=== PATIENT | female | born 1990 | race Caucasian/White ===

== ENCOUNTER 2017-09-25 12:55 | Inpatient (IN) | payer OTHER, SELFPAY ==
[2017-09-25 12:40] VITALS: BMI 35.9
[2017-09-25 12:53] LABS: ROM Internal Control Test YES-OK TO RESULT pt. (Internal QC); ROM Patient Test POSITIVE (Negative)
[2017-09-25] MEDS: Lactated Ringers 1,000 ML 50 ML IV ×3 (13:15→22:37)
[2017-09-25 13:34] LABS: Hematocrit 38.4 % (37-47); Hemoglobin 13.4 g/dl (12.0-15.0); Mean Corp Hgb Conc 34.9 g/gl (32-36); Mean Corpuscular Hgb 31.2 pg (27.0-32.0); Mean Corpuscular Volume 89.3 fL (81-99); Mean Platelet Vol. 11.4 fl (6.2-12.0); Platelet Count 172 K/mm3 (150-450); RBC Distribution Width CV 14.4 % (11.6-14.6); RBC Distribution Width SD 45.7 fl (35.1-43.9); White Blood Count 9.7 K/mm3 (4.4-11.0)
[2017-09-25 13:35] LABS: Scan Indicated on CBC? Y/N NO
[2017-09-25] MEDS: Oxytocin 30 units/NS 500 ml 30 UNITS/500 ML IV.SOLN IV (18:45)
--- NOTE | 2017-09-25 19:15 | PCM.HP.OB ---
History Date of Admission: 09/25/17 Final DONYA: 10/03/17 Final DONYA Source: LMP Gestational age: 38 Weeks and 6 Days History of this : 27 YOF presents w/ c/o SROM, clear approx 9 am. No regular ctxs. Good FM. No VB. Allergies morphine Adverse Reaction (Verified 09/25/17 12:44) Itching Current Medications Acetaminophen (Tylenol) 325 - 650 mg PO Q4H PRN PRN PRN Reason: PAIN OR FEVER >100.4F Al Hydroxide/Mg Hydroxide (Mylanta Ii) 15 - 30 ml PO Q4H PRN PRN PRN Reason: INDIGESTION Citric Acid/Sodium Citrate (Bicitra) 30 ml PO UD PRN Lactated Ringer's () 1,000 mls @ 50 mls/hr IV .Q20H [facility] Last Admin: 09/25/17 18:35 Dose: 50 mls/hr Oxytocin/Sodium Chloride () 30 units in 500 mls @ 1 mls/hr IV .Q500H [facility]FIE Nalbuphine HCl (Nubain) 5 - 10 mg IV Q3H PRN PRN PRN Reason: PAIN (4-10/10) Ondansetron HCl (Zofran) 4 mg IV Q8H PRN PRN PRN Reason: NAUSEA Promethazine HCl (Phenergan) 6.25 - 12.5 mg IV Q4H PRN PRN; Protocol PRN Reason: IF NAUSEA PERSISTS Sodium Chloride () 5 - 15 ml IV UD [facility] Last Admin: 09/25/17 18:04 Dose: Not Given Smoking Status: Never smoker Alcohol: None Drug Use: none Number of Fetus(es): 1 Review of Systems Constitutional: Denies: Chills, Fever Eyes: Denies: Blurred vision, Double vision Cardiovascular: Denies: Chest Pain Respiratory: Denies: Cough, Shortness of Breath Skin: Denies: Rash Physical Exam General: Alert, Cooperative, No apparent distress Cardiovascular: Regular rate Lungs: Normal air movement Abdomen: Soft, Non Tender, Non-Distended, Gravid, Appropriate for Gestational Age Extremities:: Other - edema- trace Estimated gestational size: Appropriate for gestational size Presentation: Cephalic Cervix Dilation (cm): 2.5 - mid position and medium consistency Station: -2 Effacement (%): 60 Assessment/Plan FHTs category 1 A/p 27 YOF @ 38 weeks w/ SROM. D/w her r/b/a/p to induction of labor vs repeat c/s. D/w her option of c/s at anytime. D/w her pitocin use and IUPC to monitor uterine activity. Epidural when in labor or w/ pitocin initiation.
--- NOTE | 2017-09-25 19:21 | HP.PCM_ITS ---
History Date of Admission: 09/25/17 Final DONYA: 10/03/17 Final DONYA Source: LMP Gestational age: 38 Weeks and 6 Days History of this : 27 YOF presents w/ c/o SROM, clear approx 9 am. No regular ctxs. Good FM. No VB. Allergies morphine Adverse Reaction (Verified 09/25/17 12:44) Itching Current Medications Acetaminophen (Tylenol) 325 - 650 mg PO Q4H PRN PRN PRN Reason: PAIN OR FEVER >100.4F Al Hydroxide/Mg Hydroxide (Mylanta Ii) 15 - 30 ml PO Q4H PRN PRN PRN Reason: INDIGESTION Citric Acid/Sodium Citrate (Bicitra) 30 ml PO UD PRN Lactated Ringer's () 1,000 mls @ 50 mls/hr IV .Q20H [facility] Last Admin: 09/25/17 18:35 Dose: 50 mls/hr Oxytocin/Sodium Chloride () 30 units in 500 mls @ 1 mls/hr IV .Q500H [facility] Nalbuphine HCl (Nubain) 5 - 10 mg IV Q3H PRN PRN PRN Reason: PAIN (4-10/10) Ondansetron HCl (Zofran) 4 mg IV Q8H PRN PRN PRN Reason: NAUSEA Promethazine HCl (Phenergan) 6.25 - 12.5 mg IV Q4H PRN PRN; Protocol PRN Reason: IF NAUSEA PERSISTS Sodium Chloride () 5 - 15 ml IV UD [facility] Last Admin: 09/25/17 18:04 Dose: Not Given Smoking Status: Never smoker Alcohol: None Drug Use: none Number of Fetus(es): 1 Review of Systems Constitutional: Denies: Chills, Fever Eyes: Denies: Blurred vision, Double vision Cardiovascular: Denies: Chest Pain Respiratory: Denies: Cough, Shortness of Breath Skin: Denies: Rash Physical Exam General: Alert, Cooperative, No apparent distress Cardiovascular: Regular rate Lungs: Normal air movement Abdomen: Soft, Non Tender, Non-Distended, Gravid, Appropriate for Gestational Age Extremities:: Other - edema- trace Estimated gestational size: Appropriate for gestational size Presentation: Cephalic Cervix Dilation (cm): 2.5 - mid position and medium consistency Station: -2 Effacement (%): 60 Assessment/Plan FHTs category 1 A/p 27 YOF @ 38 weeks w/ SROM. D/w her r/b/a/p to induction of labor vs repeat c/s. D/w her option of c/s at anytime. D/w her pitocin use and IUPC to monitor uterine activity. Epidural when in labor or w/ pitocin initiation.
[2017-09-25] MEDS: fentaNYL-bupivacaine (epidural) 100 ML BAG EPIDURAL (21:24)
[2017-09-25] MEDS: 0.9% Saline Lock 10 ML Syringe IV (22:36)
[2017-09-26] MEDS: Lactated Ringers 1,000 ML 50 ML IV (01:26)
[2017-09-26] MEDS: Oxytocin 30 units/NS 500 ml 30 UNITS/500 ML IV.SOLN 334 UNITS IV (05:53)
--- NOTE | 2017-09-26 06:29 | PCM.OB.VAG ---
Vaginal Delivery Maternal Presentation: Spontaneous Rupture of Membranes, Medically Indicated Induction Method of Induction: Pitocin Medical Reason for Induction: Premature Rupture of Membranes Amniotic Membrane Rupture Type: Spontaneous at home Amniotic Fluid Description: Clear Final DONYA: 10/03/17 Final DONYA Source: US <20 weeks Gestational age: 39 Weeks and 0 Days Date of Procedure: 09/26/17 Pre-Operative Diagnosis: labor Post-Operative Diagnosis: labor Surgery/ Procedure Performed: Spontaneous Vaginal Delivery Anesthesiologist: Sindy Alegria Type of Anesthesia: Epidural Description of Procedure: A vigorous male infant was delivered YADIEL over a second-degree perineal laceration. The remainder the infant was delivered with maternal pushing and gentle traction only in less than 15 seconds. The Pitocin infusion was initiated for active management of the third stage. The cord was clamped and cut after 1 minute. The infant was attended to by the waiting nursing staff. The placenta was delivered spontaneously and intact. The cervix and vagina were intact. The second-degree perineal laceration was repaired with 3-0 Vicryl suture in a running standard fashion. An exploration of the uterus was done and the uterine scar was intact. Sponge and needle counts were correct. A vaginal sweep was completed by me. Presentation: YADIEL Placental Delivery Description: Spontaneous Placenta Disposition: [facility] Cord Vessel Description: 3 Vessels Cord Entanglement: None Drain: [place] to straight drain - removed immediately before delivery Estimated Blood Loss: 500 Infant A gender: Male (1 minute): 8 (5 minute): 9 Episiotomy Description: None Laceration: 2nd degree Medications given after delivery: IV Pitocin Complications: None
[2017-09-26] MEDS: Oxytocin 30 units/NS 500 ml 30 UNITS/500 ML IV.SOLN 167 UNITS IV (06:30)
[2017-09-26 10:00] VITALS: BP 130/58; PULSE 130; RESP 18; TEMP 36.4; O2SAT 97
[2017-09-26] MEDS: Naproxen 250 MG Tablet PO ×2 (10:24→19:49)
[2017-09-26 11:50] VITALS: BP 119/72; PULSE 119; RESP 18; TEMP 36.2; O2SAT 98
[2017-09-26] MEDS: Acetaminophen 500 MG Tablet 1000 MG PO (13:04)
[2017-09-26 14:00] VITALS: BP 122/73; PULSE 96; RESP 18; TEMP 36.5; O2SAT 98
[2017-09-26 20:52] VITALS: BP 128/66; BP 139/70; PULSE 97; RESP 18; TEMP 36.5; O2SAT 99
[2017-09-27 00:09] VITALS: BP 114/58; PULSE 89; RESP 16; TEMP 36.2; O2SAT 98
[2017-09-27] MEDS: Acetaminophen 500 MG Tablet 1000 MG PO ×2 (00:37→08:19)
[2017-09-27 03:10] VITALS: BP 137/74; PULSE 108; RESP 16; TEMP 36.3; O2SAT 98
[2017-09-27] MEDS: Naproxen 250 MG Tablet PO (05:44)
[2017-09-27] MEDS: Senna/Docusate Sodium 1 Tablet PO (05:45)
[2017-09-27 06:02] LABS: Hematocrit 27.8 % (37-47); Hemoglobin 9.3 g/dl (12.0-15.0); Mean Corp Hgb Conc 33.5 g/gl (32-36); Mean Corpuscular Hgb 30.3 pg (27.0-32.0); Mean Corpuscular Volume 90.6 fL (81-99); Mean Platelet Vol. 10.7 fl (6.2-12.0); Platelet Count 119 K/mm3 (150-450); RBC Distribution Width CV 14.8 % (11.6-14.6); RBC Distribution Width SD 48.1 fl (35.1-43.9); Red Blood Count 3.07 M/mm3 (4.2-5.4); White Blood Count 13.2 K/mm3 (4.4-11.0)
[2017-09-27 06:04] LABS: Scan Indicated on CBC? Y/N NO
--- NOTE | 2017-09-27 08:05 | PCM.PN.OB ---
Subjective: pt seen at bedside, doing well. pt reports good pain control. lochia mild. Pt denies CP, SOB, dizziness. breast feeding. - Physical Exam General: Alert, Oriented x3 Abdomen: Soft, Non Tender, Non-Distended, - - fundus firm Extremities: No Calf Tenderness Vital Signs Temp Pulse Resp BP Pulse Ox 97.4 F L 108 H 16 137/74 H 98 09/27/17 03:10 09/27/17 03:10 09/27/17 03:10 09/27/17 03:10 09/27/17 03:10 Oxygen Delivery Method Room Air Weight: 92.1 kg Body Mass Index (BMI) 35.9 Intake and Output for Last 24 Hours 09/25/17 09/26/17 09/27/17 23:59 23:59 23:59 Intake Total 4422 / 4422 Output Total 1200 / 1200 Balance 3222 / 3222 Laboratory Tests Past 24 Hrs 09/27/17 05:40 WBC 13.2 H RBC 3.07 L Hgb 9.3 L Hct 27.8 L MCV 90.6 MCH 30.3 MCHC 33.5 RDW 14.8 H RDW Differential 48.1 H Plt Count 119 L MPV 10.7 Medical Necessity - Tobacco Use Smoking Status: Never smoker Assessment/Plan PPD#1, doing well. routine care dc home today per PO IRON
--- NOTE | 2017-09-27 08:13 | DCINST_ITS ---
Discharge Diet: No Restrictions Discharge Activity: Return to Normal Activity, May not drive while taking narcotic pain medications., May Shower May resume sexual activity in: 4-6 weeks Additional Activity Instructions:: Nothing in the vagina for 4-6 weeks. You may return to work/school in 6 weeks. Call your doctor if your incision/area has: Continuous Slow Oozing, Sudden Increased Bleeding, Increased Pain/ Swelling, Increased Redness, Foul Smelling Discharge Additional Instructions: If you experience any of the following, contact your healthcare provider. * Bleeding that soaks a pad every hour for 2 hours * Fever 100.4 or higher * Unrelieved incision or abdominal pain * Swelling, redness, discharge or bleeding from your incision or episiotomy site * Your incision begins to separate * Problems urinating (including inability to urinate or burning while urinating) . * Visual changes * Severe headache * Flu-like symptoms * Pain or redness in one of both of your breasts * Pain, warmth, tenderness or swelling in your legs, especially the calf area * Frequent nausea and vomiting * Symptoms of depression or anxiety If you experience any of the following, call 911 or go to the nearest Emergency Room. * Chest pain * Problems breathing * Seizure activity * Partial or complete paralysis of a body part, slurred speech, weakness or drooping of the face, or a sudden inability to walk or hold your balance Allergies/Adverse Reactions: Allergies morphine Adverse Reaction (Verified 09/25/17 12:44) Itching Medications to take at Discharge Montelukast [Singulair] 10 mg PO DAILY 09/25/17 Vits [Prenatabs FA ] 1 tablet PO DAILY 09/25/17 Valacyclovir HCl [Valtrex] 500 mg PO DAILY 09/25/17 Ferrous Sulfate 325 mg PO BIDCM #60 tab 09/27/17 Montelukast [Singulair] 10 mg PO 1999 #30 tablet 09/27/17 Naproxen [Naprosyn] 250 - 500 mg PO Q8H PRN PRN #30 tab 09/27/17 The following prescriptions were given: Naproxen [Naprosyn] 250 - 500 mg PO Q8H PRN PRN #30 tab PRN Reason: MILD PAIN (-08/24) Montelukast [Singulair] 10 mg PO 1999 #30 tablet Ferrous Sulfate 325 mg PO BIDCM #60 tab When: Call to make an appointment with your doctor in 6 weeks. If you had elevated Blood Pressure or 4th degree laceration you will need to be seen in 2 weeks. Primary Care Physician: Care Physician,No Primary [Primary Care Provider] -
[2017-09-27 08:20] VITALS: BP 117/71; PULSE 90; RESP 12; TEMP 36.6
[2017-09-27 14:00] VITALS: BP 130/73; PULSE 94; TEMP 36.4
== END 2017-09-27 14:30 | disposition home or self-care (01) | DRG 775 ==
LOC: WPOUT 12:56 → WP 12:56
PROVIDERS: Advanced Practice Midwife; Admitting Provider Obstetrics & Gynecology; Visit Provider Obstetrics & Gynecology
DX: O42.92 Full-term premature rupture of membranes, unspecified as to length of time between rupture and onset of labor (principal); Z3A.39 39 weeks gestation of pregnancy; Z37.0 Single live birth; O70.1 Second degree perineal laceration during delivery; O34.219 Maternal care for unspecified type scar from previous cesarean delivery; N85.8 Other specified noninflammatory disorders of uterus
CPT/HCPCS: 59025; 59050; 84112; 85027; 86850; 86900; 99218; J7120; A4216; G0378

== ENCOUNTER → 2018-07-10 13:39 | Outpatient (CLI) | payer OTHER, SELFPAY ==
[2018-07-10 14:15] LABS: Internal QC Validated? YES +Cl - CLEAR BKGD; Pregnancy, Urine Negative Negative
== END ==
PROVIDERS: Family Provider Student in an Organized Health Care Education/Training Program; PCP Student in an Organized Health Care Education/Training Program; Referring Provider Dermatology Pediatric Dermatology; Visit Provider Dermatology Pediatric Dermatology
DX: L70.0 Acne vulgaris (principal); Z79.899 Other long term (current) drug therapy
CPT/HCPCS: 81025

== ENCOUNTER → 2018-08-14 14:42 | Outpatient (CLI) | payer OTHER, SELFPAY ==
[2018-08-14 15:58] LABS: Internal QC Validated? YES +Cl - CLEAR BKGD; Pregnancy, Urine Negative Negative
== END ==
PROVIDERS: Family Provider Student in an Organized Health Care Education/Training Program; PCP Student in an Organized Health Care Education/Training Program; Referring Provider Dermatology Pediatric Dermatology; Visit Provider Dermatology Pediatric Dermatology
DX: L70.0 Acne vulgaris (principal); Z79.899 Other long term (current) drug therapy
CPT/HCPCS: 81025

== ENCOUNTER → 2018-09-18 13:37 | Outpatient (CLI) | payer OTHER, SELFPAY ==
[2018-09-18 16:01] LABS: Internal QC Validated? YES +Cl - CLEAR BKGD; Pregnancy, Urine Negative Negative
== END ==
PROVIDERS: Family Provider Student in an Organized Health Care Education/Training Program; PCP Student in an Organized Health Care Education/Training Program
DX: L70.0 Acne vulgaris (principal)
CPT/HCPCS: 81025

== ENCOUNTER → 2018-10-22 | Outpatient (CLI) | payer OTHER, SELFPAY ==
[2018-10-22 16:03] LABS: Internal QC Validated? YES +Cl - CLEAR BKGD; Pregnancy, Urine Negative Negative
== END | disposition home or self-care (01) ==
LOC: MTLAB 14:04
PROVIDERS: Family Provider Student in an Organized Health Care Education/Training Program; PCP Student in an Organized Health Care Education/Training Program; Referring Provider Physician Assistant Medical; Visit Provider Physician Assistant Medical
DX: L70.0 Acne vulgaris (principal); Z79.899 Other long term (current) drug therapy
CPT/HCPCS: 81025

== ENCOUNTER 2025-05-26 17:06 | Outpatient (CLI) | payer SELFPAY ==
[2025-05-26] VITALS (39 sets, daily range): BP systolic 111–139; BP diastolic 62–77; PULSE 72–102; RESP 14–16; TEMP 36.5–37.3; O2SAT 92–99; BMI 32.4
--- OUTSIDE RECORDS SUMMARY | 2025-05-26 17:15 | XMS RPT_ITS | CCD ---
Author Organization [facility] ion Partnership [facility] Care Team Providers Care Apartment Maintenance Technician Name Role Phone Uvaldo Milton Primary Care Provider No, Referral Unavailable Unavailable Uvaldo Milton DO Primary Care Provider IvyAna wilsonot M Unavailable Navarro Murray MD Unavailable Nicole Barcenas MD Unavailable Uvaldo Milton DO Primary Care Provider Ivy, Cain M Unavailable Navarro Murray MD Unavailable Nicole Barcenas MD Unavailable No, Referral Unavailable Unavailable Uvaldo Milton DO Primary Care Provider Nichols, Cain Jaleel Unavailable Navarro Murray MD Unavailable Nicole Barcenas MD Unavailable Unavailable Primary Care Provider Unavailabl e No, Referral Unavailable Unavailable IvyAna wilsonot Jaleel Unavailable [phone] Navarro Murray MD Unavailable Nicole Barcenas MD Unavailable UVALDO MILTON Primary Care Unavailable PROVIDER, UNKNOWN Referring Unavailable Uvaldo Milton DO Primary Care Provider Cain Haynes MD Unavailable Tony [email or web address].CON, Edna Doshi Unavailable [facility] PROM BURN OFF OPERATOR.CLEANER FURNITURE, Maddy Unavailable Diego PROM BURN OFF OPERATOR.CLEANER FURNITURE, Frances Hussein Unavailable Joe MCDUFFIE, Kelsi Unavailable Unavailable MILTON, UVALDO L Primary Care Unavailable NEYTIFFANIE ISABEL, CHERIE Attending Unavail able MILTON, UVALDO L Attending Unavailable MILTON, UVALDO L Primary Care Unavailable PLOTTS, JIHAN Referring Unavailable MILTON, UVALDO L Primary Care Unavailable NEYHART ISABEL, CHERIE Attending Unavail able PLOTTS, JIHAN Referring Unavailable MILTON, UVALDO L Primary Care Unavailable NEYHART ISABEL, CHERIE Attending Unavail able MILTON, UVALDO L Primary Care Unavailable MILTON, UVALDO L Primary Care Unavailable OTROSALEE DAVEY Referring Unavailable PLOTTS, JIHAN Referring Unavailable MILTON, UVALDO L Primary Care Unavailable PLOTTS, JIHAN Referring Unavailable MILTON, UVALDO L Primary Care Unavailable KODI GARCIA Attending Unavailable PLOTTS, JIHAN Referring Unavailable MILTON, UVALDO L Primary Care Unavailable MILTON, UVALDO L Primary Care Unavailable PLOTTS, JIHAN Attending Unavailable MILTON, UVALDO L Primary Care Unavailable Allergies Allergy Classification Reported Allergen(s) Allergy Type Date of Onset Reaction(s) Facility (20 sources) Morphine; Translations: [MORPHINE] Drug Allergy [address] [facility] (9 sources) seasonl allergies [Other] Propensity to adverse reactions [address] [facility] (1 source) OTHER; Translations: [OTHER] Propensity to adverse reactions (disorder) [address] [facility] Other [facility] (11 sources) Penicillins; Translations: [PENICILLINS] Drug Allergy [address] [facility] Medications Current Medications Medication Drug Class(es) Dates Sig (Normalized) Sig (Original) [id number] 200 actuat albuterol 0.09 mg/actuat metered dose inhaler (20 sources) beta2-Adrenergic Agonist Start: 03-04-2020 take 2 puff(s) by inhalation every four hours as needed albuterol HFA (PROAIR HFA) 90 mcg/actuation inhaler Indications: Seasonal allergies , Sinusitis Inhale 2 Puffs as instructed every 4 hours as needed. 36 g 3 03/04/2020 Active Comment on above: Inhale 2 Puffs as in structed every 4 hours as needed. perflutren lipid microspheres 1.3 mL in NaCl (PF) 0.9% 10 mL injection (DEFINITY) (7 sources) Start: 08-02-2022 End: 11-01-2023 perflutren lipid microspheres 1.3 mL in NaCl (PF) 0.9% 10 mL injection (DEFINITY) Start: 10-11-2020 End: 2022 perflutren lipid microsphere s 1.3 mL in NaCl (PF) 0.9% 10 mL injection (DEFINITY) PNV24/iron cbn,gluc/FA/dss/dha (PRENATE ORAL) (10 sources) take 1 capsule by mouth once daily PNV24/iron cbn,gluc/FA/dss/dha (PRENATE ORAL) Take 1 capsule by mouth once daily. Active 125 ml sodium chloride 9 mg/ml prefilled syringe (7 sources) Start: 08-02-2022 End: 11-01-2023 sodium chloride 0.9 % (flush) 10 mL (BD POSIFLUSH) Start: 10-11-2020 End: 2022 sodium chloride 0.9 % (flush ) 10 mL (BD POSIFLUSH) valACYclovir 500 mg oral tablet (20 sources) Herpesvirus Nucleoside Analog DNA Polymerase Inhibitor, Herpes Simplex Virus Nucleoside Analog DNA Polymerase Inhibitor, Herpes Zoster Virus Nucleoside Analog DNA Polymerase Inhibitor Start: 03-20-2023 End: 01-22-2025 valACYclovir (VALTREX) 500 mg tablet Indications: Herpes TAKE 1 TABLET DAILY 90 tablet 3 01/22/2025 Active Start: 11-20-2021 End: 08-27-2022 take 1 tablet by mouth once daily valACYclovir (VALTREX) 500 mg tablet Take 1 tablet by mouth once daily. 90 tablet 3 08/28/2022 Active Comment on above: Take 1 tablet by dung once daily. Completed/Discontinued Medications Medication Drug Class(es) Dates Sig (Normalized) Sig (Original) aspirin 81 mg delayed release oral tablet (7 sources) Platelet Aggregation Inhibitor, Nonsteroidal Anti-inflammatory Drug Start: 12-14-2024 End: 02-12-2025 take 1 tablet by mouth once daily aspirin, enteric coated (ECOTRIN LOW STRENGTH) 81 mg EC tablet Indications: with uncertain dates, antepartum (HCC) Take 1 tablet by mouth once daily. 90 tablet 3 12/14/2024 02/12/2025 Discontinued levonorgestrel 0.431554 mg/hr intrauterine system (16 sources) Progestin, Progestin-containi ng Intrauterine Device End: 12-14-2024 levonorgestrel (MIRENA) 21 mcg/24 hours (8 yrs) 52 mg IUD 1 Each by INTRAUTERINE route one time only. 12/14/2024 Discontinued Comment on above: 1 Each by INTRAUTERI NE route one time only. montelukast 10 mg oral tablet (16 sources) Leukotriene Receptor Antagonist Start: 03-19-2023 End: 12-14-2024 take 1 tablet by mouth once daily at bedtime montelukast (SINGULAIR) 10 mg tablet Take 1 tablet by mouth daily at bedtime. 90 tablet 2 04/02/2024 12/14/2024 Discontinued (Discontinued by Patient) Start: 03-14-2021 End: 09-18-2022 take 1 tablet by mouth once daily at bedtime montelukast (SINGULAIR) 10 mg tablet Take 1 tablet by mouth daily at bedtime. 90 tablet 3 03/16/2022 Active Comment on above: Take 1 tablet by dung th daily at bedtime. MULTIVITAMIN ORAL (16 sources) End: 12-14-2024 MULTIVITAMIN ORAL Take by mouth once daily. 12/14/2024 Discontinued (Discontinued by Patient) MULTIVITAMIN ORA L Take by mouth once daily. Active MULTIVITAMIN ORA L Take by mouth once daily. 0 Active Comment on above: Take by mouth once d aily. 1 ml omalizumab 150 mg/ml prefilled syringe (7 sources) Anti-IgE End: 12-15-19 25 omalizumab (XOLAIR) 150 mg/mL syringe Inject 150 mg subcutaneously. 12/14/2024 Discontinued (Discontinued by Patient) spironolactone 100 mg oral tablet (4 sources) Aldosterone Antagonist Start: 11-21-19 22 take 1 tablet by mouth once daily spironolactone (ALDACTONE) 100 mg tablet Take 1 tablet by mouth once daily. 90 tablet 3 11/20/2021 Active Comment on above: Take 1 tablet by dung th once daily. Problems Active Problems Problem Classification Problem Date Documented Date Episodic/Chronic Contraceptive and procreative management (4 sources) Patient encounter status; Translations: [Encounter for removal of intrauterine contraceptive device] Episodic Disorders of lipid metabolism (20 sources) Hypertriglyceridemia; Translations: [Pure hyperglyceridemia] Onset: 04-16-2018 04-16-2018 Chronic Menstrual disorders (2 sources) Missed period; Translations: [Irregular menstruation, unspecified] Onset: 12-14-2024 12-14-2024 Chronic Nonmalignant breast conditions (3 sources) Mastodynia; Translations: [Mastodynia] Onset: 04-30-2023 Episodic Other complications of (13 sources) High risk ; Translations: [Supervision of elderly multigravida, unspecified trimester] Onset: 12-14-2024 12-14-2024 Episodic Other complications of (2 sources) Multigravida of advanced maternal age; Translations: [Supervision of elderly multigravida, second trimester] 01-15-2025 Episodic Other complications of (6 sources) RhD negative; Translations: [Other specified related conditions, unspecified trimester] Onset: 01-18-2025 01-18-2025 Episodic Other complications of (1 source) Supervision of elderly multigravida, unspecified trimester; Translations: [Encounter for supervision of high risk multigravida of advanced maternal age, antepartum (HCC)] Onset: 01-14-2025 Episodic Other female genital disorders (1 source) Other specified noninflammatory disorders of vagina; Translations: [Vaginal discharge] Onset: 03-10-2025 Episodic Other nutritional; endocrine; and metabolic disorders (20 sources) Cholesterol level - finding; Translations: [Lipoprotein deficiency] Onset: 04-16-2018 04-16-2018 Chronic Other and delivery including normal (20 sources) Normal in primigravida; Translations: [Encounter for supervision of normal first , unspecified trimester] Onset: 03-26-2012 Resolved: 03-06-2018 03-06-2018 Episodic Other screening for suspected conditions (not mental disorders or infectious disease) (20 sources) Finding of menstrual bleeding; Translations: [Encounter for screening for uncertain dates] Onset: 03-26-2012 Resolved: 09-11-2012 09-11-2012 Episodic Nova-; endo-; and myocarditis; cardiomyopathy (except that caused by tuberculosis or sexually transmitted disease) (13 sources) Hypertrophic cardiomyopathy; Translations: [Other hypertrophic cardiomyopathy] Onset: 01-15-2025 12-14-2024 Chronic Residual codes; unclassified (2 sources) Genetic mutation; Translations: [Genetic susceptibility to other disease] Episodic Residual codes; unclassified (13 sources) History of past delivery; Translations: [History of uterine scar from previous surgery] Onset: 12-14-2024 12-14-2024 Episodic Residual codes; unclassified (2 sources) Gestation period, 12 weeks; Translations: [12 weeks gestation of ] 01-14-2025 Episodic Residual codes; unclassified (1 source) Gestation period, 16 weeks; Translations: [16 weeks gestation of ] 02-12-2025 Episodic Residual codes; unclassified (1 source) 24 weeks gestation of ; Translations: [24 weeks gestation of (HCC)] Onset: 04-06-2025 Episodic Residual codes; unclassified (1 source) 20 weeks gestation of ; Translations: [20 weeks gestation of (HCC)] Onset: 03-10-2025 Episodic Residual codes; unclassified (1 source) 16 weeks gestation of ; Translations: [16 weeks gestation of (HCC)] Onset: 02-12-2025 Episodic Residual codes; unclassified (1 source) 12 weeks gestation of ; Translations: [12 weeks gestation of (HCC)] Onset: 01-14-2025 Episodic Unclassified (10 sources) [facility] Education - COMMON Onset: 12-14-2024 12-14-2024 Unclassified (10 sources) Education - [place] Onset: 12-14-2024 12-14-2024 Unclassified (1 source) Yearly Exam Onset: 03-23-2025 Past or Other Problems Problem Classification Problem Date Documented Da te Episodic/Chronic Immunizations and screening for infectious disease (4 sources) Needs influenza immunization; Translations: [Encounter for immunization] Onset: 12-14-2024 Episodic Other complications of ; puerperium affecting management of mother (17 sources) Hereditary disease in family possibly affecting fetus; Translations: [Maternal care for other (suspected) abnormality and damage, not applicable or unspecified] Onset: 04-22-2012 Resolved: 09-11-2012 06-12-2021 Episodic Other nutritional; endocrine; and metabolic disorders (20 sources) Obese class I; Translations: [Obesity, unspecified] Onset: 04-16-2018 Resolved: 01-14-2025 04-16-2018 Chronic Other nutritional; endocrine; and metabolic disorders (19 sources) Overweight in adulthood with body mass index of 25 or more but less than 30; Translations: [Overweight] Onset: 03-20-2023 03-20-2023 Episodic Other skin disorders (17 sources) Acne; Translations: [Other acne] Resolved: 11-06-2017 12-26-2023 Episodic Other upper respiratory disease (20 sources) Polyp of nasal cavity and/or nasal sinus; Translations: [Nasal polyp, unspecified] Onset: 03-15-2021 03-15-2021 Episodic Residual codes; unclassified (20 sources) FH: Cardiomyopathy; Translations: [Family history of ischemic heart disease and other diseases of the circulatory system] Onset: 03-26-2012 03-26-2012 Episodic Residual codes; unclassified (2 sources) History of uterine scar from previous surgery; Translations: [History of section] Onset: 12-14-2024 Episodic Residual codes; unclassified (1 source) Family history of ischemic heart disease and other diseases of the circulatory system; Translations: [Family history of hypertrophic cardiomyopathy] Onset: 12-14-2024 Episodic Viral infection (20 sources) Herpes simplex; Translations: [Herpesviral infection, unspecified] Onset: 03-26-2012 06-12-2021 Episodic Results Test Name Value Interpretation Reference Range Facility [facility] 04-01-2025 [facility] Telephone (OBGYWM) RADHA CHUNG ([id number]) 1990 F Date Time Provider Department 04/01/25 CHERIE CAIN During your visit today, we recorded the following information about you: Ayaka Limon RN 04/01/2025 11:50 AM Signed Breast pump order received from [employer]. To DM to sign. RETA Hale Lindsey, RN 04/01/2025 2:06 PM Signed Order signed and faxed. Brooklyn Doshi RN Allergies As of Date: 04/01/2025 Noted Allergy Reaction PENICILLINS 12/14/2024 9 - Itching MORPHINE 09/16/2014 9 - Itching Date Reviewed: 03/23/2025 Reviewed by: Sandra Suarez LPN - Fully Assessed Reason for Visit: Breast Pump [Other] Prescriptions as of 04/01/2025 - valACYclovir (VALTREX) 500 mg tablet TAKE 1 TABLET DAILY - PNV24/iron cbn,gluc/FA/dss/dha (PRENATE ORAL) Take 1 capsule by mouth once daily. - albuterol HFA (PROAIR HFA) 90 mcg/actuation inhaler Inhale 2 Puffs as instructed every 4 hours as needed. Meds Comments as of 03/04/2020: Iron supplement Problem List As Of Date 04/01/2025 Noted Resolved Other acne [L70.8] 11/06/2017 Supervision of normal first [Z34.00] 03/26/2012 03/06/2018 Herpes [B00.9] 03/26/2012 Unsure of LMP (last menstrual period) as reason*03/26/2012 09/11/2012 Family history of hypertrophic cardiomyopathy [*03/26/2012 Family or maternal historic risk of congenital *04/22/2012 09/11/2012 History of section [Z98.891] 02/19/2017 Low HDL (under 40) [E78.6] 04/16/2018 Hypertriglyceridemia [E78.1] 04/16/2018 Other hyperlipidemia [E78.49] 04/16/2018 Obesity, Class I, BMI 30-34.9 [E66.811] 04/16/2018 01/14/2025 Nasal polyps [J33.9] 03/15/2021 Overweight with body mass index (BMI) of 27 to *03/20/2023 Hypertrophic cardiomyopathy (HCC) [I42.2] History of [Z98.891] 12/14/2024 Rh negative state in antepartum period (HCC) [O*01/18/2025 Encounter Status:Closed by BROOKLYN DOSHI on 04/01/25 Normal [facility] CNOVon 03-23-2025 CNOV Office Visit (FAMPWS ) RADHA CHUNG ([id number]) 1990 F Date Time Provider Department 03/23/25 1:00 PM UVALDO MILTON FAMPWS During your visit today, we recorded the following information about you: Temperature Pulse Respiration Blood pressure 97.9 degrees 80/minute 16/minute 110/72 Weight Height 78.9 kg 1.62 m Uvaldo Milton, 03/23/2025 3:03 PM Signed CC: Radha Chung is a 35 year old female who presents to the office for physical HPI: Overall she is doing well She is now with her 3rd child, a daughter. She is struggling with some fatigue, being managed Admits needs to be more physically active with her PAST MEDICAL HISTORY Diagnosis Date Chlamydia Herpes simplex without mention of complication Hypertrophic cardiomyopathy (HCC) Postive for the gene Nasal polyps Obesity, Class I, BMI 30-34.9 04/16/2018 Other acne PAST SURGICAL HISTORY Procedure Laterality Date DELIVERY ONLY 2012 ECHO DOPPLER COMPLETE 02/2005 normal ECHO DOPPLER COMPLETE 02/2008 normal EXTRACTION ERUPTED TOOTH/EXR INJECTION zolar REM LESION FACE,EAR,EYE 2.1-3 CM 06/25/2016 lip SEPTOPLASTY Bilateral 04/08/2019 Dr. Davonte Chand, [facility] Social History: SOCIAL HISTORY[1] FAMILY HISTORY Problem Relation Age of Onset other (sudden cardiac ) Brother Hypertension Mother Blood Disease Mother anemia Cancer Mother 53 mucinous tumor on appendix Hypertension Father 59 HCM Cervical Cancer Maternal Grandmother 60 Cataract Maternal Grandmother Psychiatry Sister depression other (HCM) Sister other (HCM) Brother Aneurysm Paternal Aunt brain aneurysm Current Outpatient prescriptions: valACYclovir (VALTREX) 500 mg tablet TAKE 1 TABLET DAILY PNV24/iron cbn,gluc/FA/dss/dha (PRENATE ORAL) Take 1 capsule by mouth once daily. albuterol HFA (PROAIR HFA) 90 mcg/actuation inhaler Inhale 2 Puffs as instructed every 4 hours as needed. Allergies: ALLERGIES Allergen Reactions Penicillins Itching Morphine Itching ROS: See HPI PE: 03/23/25 1307 BP: 110/72 Pulse: 80 Resp: 16 Temp: 36.6 ?C (97.9 ?F) TempSrc: Left Tympanic Weight: 78.9 kg (174 lb) Height: 162 cm (5' 3.78) Gen: AANDO, NAD, non-toxic appearing, Pleasant, cooperative HEENT: NT/AC, PERRLA, EOMs intact b/l, nares clear and patent b/l, pharynx without erythema, exudate or lesions. Uvula midline. EACs without erythema or debris. TMs pearly bar with intact landmarks b/l. Neck: supple, No cervical LAD, no thyromegaly, no carotid bruits CV: RRR, normal S1 and S2, no murmurs, no gallops, no rubs, Pulses 2+ and symmetric in UE and LE b/l Lungs: normal respiratory effort, CTA b/l, no wheezing or rhonchi or rales Abd: soft, NT, ND, +BS, no hepatosplenomegaly MS: FROM all 4 extremities Neuro: CN II-XII intact b/l, strength 5/5 b/l UE and LE, DTRs 2/4 UE and LE, sensation intact. Skin: warm, dry, intact, No rashes or lesions on exposed skin. No edema legs ASSESSMENT/PLAN: 1. Well adult exam - ICD9: V70.0, ICD10: Z00.00 (primary diagnosis) - Counseled on healthy diet and regular exercise 2. 22 weeks gestation of (HCC) - ICD9: V22.2, ICD10: Z3A.22 Managed by OBGYN 3. Fatigue, unspecified type - ICD9: 780.79, ICD10: R53.83 Secondary to , managed by OBGYN Uvaldo Milton DO To ER if develops chest pain, shortness of breath, or severe worsening of symptoms. Discussed risks, benefits, alternatives, and potential side effects of medications. Patient expressed understanding and agreed with the plan. Uvaldo Milton DO [address] [place] [address] [1] Social History Tobacco Use Smoking status: Never Smokeless tobacco: Never Vaping Use Vaping status: Never Used Substance Use Topics Alcohol use: Not Currently Drug use: No Allergies As of Date: 03/23/2025 Noted Allergy Reaction PENICILLINS 12/14/2024 9 - Itching MORPHINE 09/16/2014 9 - Itching Date Reviewed: 03/23/2025 Reviewed by: Sandra Suarez LPN - Fully Assessed Reason for Visit: Yearly Exam [187] Primary Visit Diagnosis:Well adult exam [Z00.00] Other Visit Diagnoses:22 weeks gestation of (HCC) [Z3A.22] Fatigue, unspecified type [R53.83] Prescriptions as of 03/23/2025 - valACYclovir (VALTREX) 500 mg tablet TAKE 1 TABLET DAILY - PNV24/iron cbn,gluc/FA/dss/dha (PRENATE ORAL) Take 1 capsule by mouth once daily. - albuterol HFA (PROAIR HFA) 90 mcg/actuation inhaler Inhale 2 Puffs as instructed every 4 hours as needed. Meds Comments as of 03/04/2020: Iron supplement Problem List As Of Date 03/23/2025 Noted Resolved Other acne [L70.8] 11/06/2017 Supervision of normal first [Z34.00] 03/26/2012 03/06/2018 Herpes [B00.9] 03/26/2012 Unsure of LMP (last mens (more content not included)... Normal [facility] 02-26-2025 [facility] Telephone ([facility]) RADHA CHUNG ([id number]) 1990 F Date Time Provider Department 02/26/25 KELSI DIAZ [facility] During your visit today, we recorded the following information about you: Kelsi Diaz RN 02/26/2025 2:46 PM Signed Radha called in and is declining COB and MFM care until Jun as her current insurance will not cover any of these appointments. She stated that she would be happy to be seen in June but not prior and she doesn't not want two high deductibles. Per her request all COB, MFM, and cardiology testing cancelled. Dr Isabel and Dr Brar updated via [employer] message. I verifed that she has my contact information to call back if she changes her mind and wishes to reschedule. Cherie Cain MD 02/26/2025 3:05 PM Signed Noted- thank you Allergies As of Date: 02/26/2025 Noted Allergy Reaction PENICILLINS 12/14/2024 9 - Itching MORPHINE 09/16/2014 9 - Itching Date Reviewed: 01/14/2025 Reviewed by: Kodi Garcia APRN.CLEANER FURNITURE - Fully Assessed Reason for Visit: Appointment [186] Prescriptions as of 02/26/2025 - valACYclovir (VALTREX) 500 mg tablet TAKE 1 TABLET DAILY - PNV24/iron cbn,gluc/FA/dss/dha (PRENATE ORAL) Take 1 capsule by mouth once daily. - albuterol HFA (PROAIR HFA) 90 mcg/actuation inhaler Inhale 2 Puffs as instructed every 4 hours as needed. Meds Comments as of 03/04/2020: Iron supplement Problem List As Of Date 02/26/2025 Noted Resolved Other acne [L70.8] 11/06/2017 Supervision of normal first [Z34.00] 03/26/2012 03/06/2018 Herpes [B00.9] 03/26/2012 Unsure of LMP (last menstrual period) as reason*03/26/2012 09/11/2012 Family history of hypertrophic cardiomyopathy [*03/26/2012 Family or maternal historic risk of congenital *04/22/2012 09/11/2012 History of section [Z98.891] 02/19/2017 Low HDL (under 40) [E78.6] 04/16/2018 Hypertriglyceridemia [E78.1] 04/16/2018 Other hyperlipidemia [E78.49] 04/16/2018 Obesity, Class I, BMI 30-34.9 [E66.811] 04/16/2018 01/14/2025 Nasal polyps [J33.9] 03/15/2021 Overweight with body mass index (BMI) of 27 to *03/20/2023 Encounter for supervision of high risk multigra*12/14/2024 Hypertrophic cardiomyopathy (HCC) [I42.2] History of [Z98.891] 12/14/2024 Rh negative state in antepartum period (HCC) [O*01/18/2025 Encounter Status:Closed by KELSI DIAZ on 02/26/25 [facility] 02-18-2025 CNPN Telephone ([facility]) RADHA CHUNG ([id number]) 1990 F Date Time Provider Department 02/18/25 KELSI DIAZ [facility] During your visit today, we recorded the following information about you: Kelsi Diaz RN 02/18/2025 11:18 AM Signed I spoke with Radha and she is still waiting to hear back from her O rep. She placed another call today to her HR dept so they can help to expedite the response from [facility]. Radha wishes to keep her appointments scheduled for COB here in [place] on 03/08/25 until her hears back from her insurance.At this time she is also asking to keep the appt scheduled for Nov with [facility] at [place]. She will cancel this is she is able to come to [place] for COB. I rescheduled her cardiology appointment that was cancelled by the [place] office today. I answered all of her questions to the best of my ability. She has my direct contact information and will call me as soon as she hears back from O Cherie Cain MD 02/18/2025 11:47 AM Signed Thank you. Allergies As of Date: 02/18/2025 Noted Allergy Reaction PENICILLINS 12/14/2024 9 - Itching MORPHINE 09/16/2014 9 - Itching Date Reviewed: 01/14/2025 Reviewed by: Kodi Garcia APRN.CLEANER FURNITURE - Fully Assessed Reason for Visit: Appointment [186] Cmt: COB Prescriptions as of 02/18/2025 - valACYclovir (VALTREX) 500 mg tablet TAKE 1 TABLET DAILY - PNV24/iron cbn,gluc/FA/dss/dha (PRENATE ORAL) Take 1 capsule by mouth once daily. - albuterol HFA (PROAIR HFA) 90 mcg/actuation inhaler Inhale 2 Puffs as instructed every 4 hours as needed. Meds Comments as of 03/04/2020: Iron supplement Problem List As Of Date 02/18/2025 Noted Resolved Other acne [L70.8] 11/06/2017 Supervision of normal first [Z34.00] 03/26/2012 03/06/2018 Herpes [B00.9] 03/26/2012 Unsure of LMP (last menstrual period) as reason*03/26/2012 09/11/2012 Family history of hypertrophic cardiomyopathy [*03/26/2012 Family or maternal historic risk of congenital *04/22/2012 09/11/2012 History of section [Z98.891] 02/19/2017 Low HDL (under 40) [E78.6] 04/16/2018 Hypertriglyceridemia [E78.1] 04/16/2018 Other hyperlipidemia [E78.49] 04/16/2018 Obesity, Class I, BMI 30-34.9 [E66.811] 04/16/2018 01/14/2025 Nasal polyps [J33.9] 03/15/2021 Overweight with body mass index (BMI) of 27 to *03/20/2023 Encounter for supervision of high risk multigra*12/14/2024 Hypertrophic cardiomyopathy (HCC) [I42.2] History of [Z98.891] 12/14/2024 Rh negative state in antepartum period (HCC) [O*01/18/2025 Encounter Status:Closed by KELSI DIAZ on 02/18/25 [facility] CNPN Telephone (OBGYWM) RADHA CHUNG ([id number]) 1990 F Date Time Provider Department 02/18/25 CHERIE CAIN OBGYWM During your visit today, we recorded the following information about you: Cherie Cain MD 02/18/2025 7:45 AM Signed Please add patient to MFM day 05/11 in [place]- incase patient does not make it to cardio OB appt 03/08 MFM does want her seen here in [place] and that provider is also cardio OB. Pema Aldana RN 02/18/2025 9:19 AM Signed Pt states she is changing insurance companies 1st of the year, so is checking to see how this will affect coverage with specialists. Scheduled Pt for anatomy US as it was not scheduled AND Pt preferred to have completed here in [place] rather than [place]. Scheduled Pt for MFM on 05/11 as advised here in [place] and advised [facility] Pt will notify office once she gets in touch with insurance company and will get all appointments set up as advised further. Pema Aldana RN Allergies As of Date: 02/18/2025 Noted Allergy Reaction PENICILLINS 12/14/2024 9 - Itching MORPHINE 09/16/2014 9 - Itching Date Reviewed: 01/14/2025 Reviewed by: Kodi Garcia APRN.[employer] - Fully Assessed Prescriptions as of 02/18/2025 - valACYclovir (VALTREX) 500 mg tablet TAKE 1 TABLET DAILY - PNV24/iron cbn,gluc/FA/dss/dha (PRENATE ORAL) Take 1 capsule by mouth once daily. - albuterol HFA (PROAIR HFA) 90 mcg/actuation inhaler Inhale 2 Puffs as instructed every 4 hours as needed. Meds Comments as of 03/04/2020: Iron supplement Problem List As Of Date 02/18/2025 Noted Resolved Other acne [L70.8] 11/06/2017 Supervision of normal first [Z34.00] 03/26/2012 03/06/2018 Herpes [B00.9] 03/26/2012 Unsure of LMP (last menstrual period) as reason*03/26/2012 09/11/2012 Family history of hypertrophic cardiomyopathy [*03/26/2012 Family or maternal historic risk of congenital *04/22/2012 09/11/2012 History of section [Z98.891] 02/19/2017 Low HDL (under 40) [E78.6] 04/16/2018 Hypertriglyceridemia [E78.1] 04/16/2018 Other hyperlipidemia [E78.49] 04/16/2018 Obesity, Class I, BMI 30-34.9 [E66.811] 04/16/2018 01/14/2025 Nasal polyps [J33.9] 03/15/2021 Overweight with body mass index (BMI) of 27 to *03/20/2023 Encounter for supervision of high risk multigra*12/14/2024 Hypertrophic cardiomyopathy (HCC) [I42.2] History of [Z98.891] 12/14/2024 Rh negative state in antepartum period (HCC) [O*01/18/2025 Encounter Status:Closed by PEMA ALDANA on 02/18/25 Normal [facility] 02-04-2025 [facility] Telephone ([facility]) RADHA CHUNG ([id number]) 1990 F Date Time Provider Department 02/04/25 KELSI DIAZ [facility] During your visit today, we recorded the following information about you: Kelsi Diaz RN 02/04/2025 11:05 AM Signed I spoke with Radha and she would like to cancel her appointments for for COB. She is concerned about insurance coverage. Her employer is switching carriers for and she is concerned about payment. She is waiting to speak with her MMO rep before she proceeds with any MFM or COB appointments. She did request to be placed on the schedule for 03/08 in hopes that she has more answers from her insurance. She has my contact information if she has any further questions or concerns. Allergies As of Date: 02/04/2025 Noted Allergy Reaction PENICILLINS 12/14/2024 9 - Itching MORPHINE 09/16/2014 9 - Itching Date Reviewed: 01/14/2025 Reviewed by: Kodi Garcia APRN.[employer]URNITURE - Fully Assessed Reason for Visit: Appointment [186] Prescriptions as of 02/04/2025 - valACYclovir (VALTREX) 500 mg tablet TAKE 1 TABLET DAILY - aspirin, enteric coated (ECOTRIN LOW STRENGTH) 81 mg EC tablet Take 1 tablet by mouth once daily. - PNV24/iron cbn,gluc/FA/dss/dha (PRENATE ORAL) Take 1 capsule by mouth once daily. - albuterol HFA (PROAIR HFA) 90 mcg/actuation inhaler Inhale 2 Puffs as instructed every 4 hours as needed. Meds Comments as of 03/04/2020: Iron supplement Problem List As Of Date 02/04/2025 Noted Resolved Other acne [L70.8] 11/06/2017 Supervision of normal first [Z34.00] 03/26/2012 03/06/2018 Herpes [B00.9] 03/26/2012 Unsure of LMP (last menstrual period) as reason*03/26/2012 09/11/2012 Family history of hypertrophic cardiomyopathy [*03/26/2012 Family or maternal historic risk of congenital *04/22/2012 09/11/2012 History of section [Z98.891] 02/19/2017 Low HDL (under 40) [E78.6] 04/16/2018 Hypertriglyceridemia [E78.1] 04/16/2018 Other hyperlipidemia [E78.49] 04/16/2018 Obesity, Class I, BMI 30-34.9 [E66.811] 04/16/2018 01/14/2025 Nasal polyps [J33.9] 03/15/2021 Overweight with body mass index (BMI) of 27 to *03/20/2023 Encounter for supervision of high risk multigra*12/14/2024 Hypertrophic cardiomyopathy (HCC) [I42.2] History of [Z98.891] 12/14/2024 Rh negative state in antepartum period (HCC) [O*01/18/2025 Encounter Status:Closed by KELSI DIAZ on 02/04/25 [facility]19[facility]20[facility]) RADHA CHUNG ([id number]) 1990 F Date Time Provider Department 01/19/25 KELSI DIAZ [facility] During your visit today, we recorded the following information about you: Kelsi Diaz, RN 01/19/2025 2:06 PM Signed I called Radha to introduce myself to her as a maternal home care physical therapist in the [facility]. Discussion of the services offered including support, education, coordination of care and appointment scheduling. My contact information was provided and she was encouraged to call with any questions or concerns. Offered to assist with scheduling appointments in the COB clinic. I explained the Cardio OB clinic and the purpose and function of the clinic. She is agreeable to an appointment on 02/08/25 at 1:45pm with Dr. Sparrow and . She is still working on figuring out her insurance so there is a chance that she may cancel. She will let me know if she chooses to do so. Also reviewed the multi-disciplinary team meetings in which patient's case will be discussed to optimize care planning. She is active on [employer]. I informed her that she will see an appointment time noted in [employer] for her echocardiogram and for her ekg. She is agreeable to the plan. 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 Her brother (age 35) and sister (age 42) have both been diagnosed with HCM and are positive for the MYBPC3 mutation - they have ICD's in situ. She also had another brother who tragically suddenly at age 26 from HCM. 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 - PNV24/iron cbn,gluc/FA/dss/dha (PRENATE ORAL) Take 1 capsule by mouth once daily. - valACYclovir (VALTREX) 500 mg tablet Take 1 tablet by mouth once daily. - albuterol HFA (PROAIR HFA) 90 mcg/actuation inhaler Inhale 2 Puffs as instructed every 4 hours as needed. Meds Comments as of 03/04/2020: Iron supplement Problem List As Of Date 01/19/2025 Noted Resolved Other acne [L70.8] 11/06/2017 Supervision of normal first [Z34.00] 03/26/2012 03/06/2018 Herpes [B00.9] 03/26/2012 Unsure of LMP (last menstrual period) as reason*03/26/2012 09/11/2012 Family history of hypertrophic cardiomyopathy [*03/26/2012 Family or maternal historic risk of congenital *04/22/2012 09/11/2012 History of section [Z98.891] 02/19/2017 Low HDL (under 40) [E78.6] 04/16/2018 Hypertriglyceridemia [E78.1] 04/16/2018 Other hyperlipidemia [E78.49] 04/16/2018 Obesity, Class I, BMI 30-34.9 [E66.811] 04/16/2018 01/14/2025 Nasal polyps [J33.9] 03/15/2021 Overweight with body mass index (BMI) of 27 to *03/20/2023 Encounter for supervision of high risk multigra*12/14/2024 Hypertrophic cardiomyopathy (HCC) [I42.2] History of [Z98.891] 12/14/2024 Rh negative state in antepartum period (HCC) [O*01/18/2025 Encounter Status:Closed by KELSI DIAZ on 01/19/25 [facility] 01-18-2025 [facility] ([facility]) RADHA CHUNG ([id number]) 1990 F Date Time Provider Department 01/18/25 HISTORICAL [facility] During your visit today, we recorded the following information about you: Nba Powell 01/18/2025 12:15 PM Signed Referral to [facility]. Patient lives in [place]. Sent to [place] team to assist. Allergies As of Date: 01/18/2025 Noted Allergy Reaction PENICILLINS 12/14/2024 9 - Itching MORPHINE 09/16/2014 9 - Itching Date Reviewed: 01/14/2025 Reviewed by: Kodi Garcia APRN.[employer]URNITURE - Fully Assessed Prescriptions as of 01/18/2025 - aspirin, enteric coated (ECOTRIN LOW STRENGTH) 81 mg EC tablet Take 1 tablet by mouth once daily. - PNV24/iron cbn,gluc/FA/dss/dha (PRENATE ORAL) Take 1 capsule by mouth once daily. - valACYclovir (VALTREX) 500 mg tablet Take 1 tablet by mouth once daily. - albuterol HFA (PROAIR HFA) 90 mcg/actuation inhaler Inhale 2 Puffs as instructed every 4 hours as needed. Meds Comments as of 03/04/2020: Iron supplement Problem List As Of Date 01/18/2025 Noted Resolved Other acne [L70.8] 11/06/2017 Supervision of normal first [Z34.00] 03/26/2012 03/06/2018 Herpes [B00.9] 03/26/2012 Unsure of LMP (last menstrual period) as reason*03/26/2012 09/11/2012 Family history of hypertrophic cardiomyopathy [*03/26/2012 Family or maternal historic risk of congenital *04/22/2012 09/11/2012 History of section [Z98.891] 02/19/2017 Low HDL (under 40) [E78.6] 04/16/2018 Hypertriglyceridemia [E78.1] 04/16/2018 Other hyperlipidemia [E78.49] 04/16/2018 Obesity, Class I, BMI 30-34.9 [E66.811] 04/16/2018 01/14/2025 Nasal polyps [J33.9] 03/15/2021 Overweight with body mass index (BMI) of 27 to *03/20/2023 Encounter for supervision of high risk multigra*12/14/2024 Hypertrophic cardiomyopathy (HCC) [I42.2] History of [Z98.891] 12/14/2024 Rh negative state in antepartum period (HCC) [O*01/18/2025 Encounter Status:Closed by NBA POWELL on 01/18/25 [facility] 01-15-2025 [facility] Telephone ([facility]) RADHA CHUNG ([id number]) 1990 F Date Time Provider Department 01/15/25 KODI GARCIA During your visit today, we recorded the following information about you: Highman, Anabell, RN 01/15/2025 10:31 AM Signed Kodi Garcia APRN.CNP P [facility] Pool Please let patient know I placed MFM consult. She had concerns about insurance coverage. We do recommend MFM consult. Kodi Garcia APRN.Anabell Patel RN 01/15/2025 10:31 AM Signed How soon does she need to meet with MFM? Anytime? RETA Staton Emily, APRN.CNP 01/15/2025 11:22 AM Signed She is eligible for early anatomy at 16 weeks. Could do at same time if we have availability. If not, 20 week anatomy scan. Kodi Garcia APRN.Anabell Patel RN 01/15/2025 11:37 AM Signed Spoke with patient. She is still in the process of checking on her insurance coverage because it will be changing in June. Notified patient that we could coordinate her 20 week anatomy with MFM on 03/02 if she would like. Patient will let our office know when she has more information. Anabell Gotti RN Allergies As of Date: 01/15/2025 Noted Allergy Reaction PENICILLINS 12/14/2024 9 - Itching MORPHINE 09/16/2014 9 - Itching Date Reviewed: 01/14/2025 Reviewed by: Kodi Garcia APRN.CNP - Fully Assessed Primary Visit Diagnosis:Multigravida of advanced maternal age in second trimester (HCC) [O09.522] Order(s):OBSTETRIC ULTRASOUND [facility] [[id number]] Order #: [id number]: 1 FUTURE Prescriptions as of 01/15/2025 - aspirin, enteric coated (ECOTRIN LOW STRENGTH) 81 mg EC tablet Take 1 tablet by mouth once daily. - PNV24/iron cbn,gluc/FA/dss/dha (PRENATE ORAL) Take 1 capsule by mouth once daily. - valACYclovir (VALTREX) 500 mg tablet Take 1 tablet by mouth once daily. - albuterol HFA (PROAIR HFA) 90 mcg/actuation inhaler Inhale 2 Puffs as instructed every 4 hours as needed. Meds Comments as of 03/04/2020: Iron supplement Problem List As Of Date 01/15/2025 Noted Resolved Other acne [L70.8] 11/06/2017 Supervision of normal first [Z34.00] 03/26/2012 03/06/2018 Herpes [B00.9] 03/26/2012 Unsure of LMP (last menstrual period) as reason*03/26/2012 09/11/2012 Family history of hypertrophic cardiomyopathy [*03/26/2012 Family or maternal historic risk of congenital *04/22/2012 09/11/2012 History of section [Z98.891] 02/19/2017 Low HDL (under 40) [E78.6] 04/16/2018 Hypertriglyceridemia [E78.1] 04/16/2018 Other hyperlipidemia [E78.49] 04/16/2018 Obesity, Class I, BMI 30-34.9 [E66.811] 04/16/2018 01/14/2025 Nasal polyps [J33.9] 03/15/2021 Overweight with body mass index (BMI) of 27 to *03/20/2023 Encounter for supervision of high risk multigra*12/14/2024 Hypertrophic cardiomyopathy (HCC) [I42.2] History of [Z98.891] 12/14/2024 Encounter Status:Closed by ANABELL GOTTI on 01/15/25 Normal [facility] Telephone ([facility]) RADHA CHUNG ([id number]) 1990 F Date Time Provider Department 01/15/25 KODI GARCIA During your visit today, we recorded the following information about you: Pema Aldana, RN 01/15/2025 1:30 PM Signed 12w6d Pt saw for routine visit 01/14/25. Pt calling concerned as she was alerted on mychart that she had new orders placed and needed to make appointment to have lab drawn for Partial RHO analysis and Weak RD analysis. Pt asking for explanation as she never had to have this drawn with her prior pregnancies. Explained that message would be routed to provider and we would call her back with explanation. Please advise. Pt voiced understanding. RETA Shipman Emily, APRN.CON 01/15/2025 1:32 PM Signed I'm not sure. I did not order these. Please route to ordering provider. Kodi Garcia APRN.Ayaka Diallo RN 01/18/2025 9:17 AM Signed Rosalee Hilliard MD Haury, Emily, APRN.CLEANER FURNITURE Good morning, Our blood bank testing showed what we call Rh discrepancy I.e. we cannot tell if the patient is D positive or D negative. The only way to know is by doing molecular testing. Until we get the results, the patient will be managed as Rh negative. Rosalee Allergies As of Date: 01/15/2025 Noted Allergy Reaction PENICILLINS 12/14/2024 9 - Itching MORPHINE 09/16/2014 9 - Itching Date Reviewed: 01/14/2025 Reviewed by: Kodi Garcia APRN.[employer] FURNITURE - Fully Assessed Reason for Visit: Patient Question [7207] Prescriptions as of 01/20/2025 - aspirin, enteric coated (ECOTRIN LOW STRENGTH) 81 mg EC tablet Take 1 tablet by mouth once daily. - PNV24/iron cbn,gluc/FA/dss/dha (PRENATE ORAL) Take 1 capsule by mouth once daily. - valACYclovir (VALTREX) 500 mg tablet Take 1 tablet by mouth once daily. - albuterol HFA (PROAIR HFA) 90 mcg/actuation inhaler Inhale 2 Puffs as instructed every 4 hours as needed. Meds Comments as of 03/04/2020: Iron supplement Problem List As Of Date 01/15/2025 Noted Resolved Other acne [L70.8] 11/06/2017 Supervision of normal first [Z34.00] 03/26/2012 03/06/2018 Herpes [B00.9] 03/26/2012 Unsure of LMP (last menstrual period) as reason*03/26/2012 09/11/2012 Family history of hypertrophic cardiomyopathy [*03/26/2012 Family or maternal historic risk of congenital *04/22/2012 09/11/2012 History of section [Z98.891] 02/19/2017 Low HDL (under 40) [E78.6] 04/16/2018 Hypertriglyceridemia [E78.1] 04/16/2018 Other hyperlipidemia [E78.49] 04/16/2018 Obesity, Class I, BMI 30-34.9 [E66.811] 04/16/2018 01/14/2025 Nasal polyps [J33.9] 03/15/2021 Overweight with body mass index (BMI) of 27 to *03/20/2023 Encounter for supervision of high risk multigra*12/14/2024 Hypertrophic cardiomyopathy (HCC) [I42.2] History of [Z98.891] 12/14/2024 Encounter Status:Closed by AYAKA LIMON on 01/20/25 Normal [facility] BLOOD BANK PLACEHOLDER, GOLD SFUSION EVENTon 01-14-2025 BLOOD BANK REPORT, TRANSFUSION EVENT See Pathology Report Normal [facility] Comment on above: Order Comment: Speci men Type: BLOOD SPECIMEN Ordering Facility: [facility] Address: [address] [place] [address] Performed By: #### T KOMAL [id number] #### [facility] BLOOD BANK CLIA [id number] [address] [place] [address] [place] #### WKD #### [facility] BLOOD [facility] CLIA [id number] [address] [place] [address] [place] BLOOD BANK REPORT, TRANSFUSI ON EVENTon 01-14-2025 PATHOLOGY INTERPRETATION Normal [facility] Comment on above: Order Comment: Speci men Type: BLOOD SPECIMEN Ordering Facility: [facility] Address: [address] [place] [address] Result Comment: Mole cular testing performed by [facility] reference laboratory shows this patient to be Weak D Type 1. Individuals with Weak D Type 1 are not at risk for developing the anti-D alloantibody and can safely be managed as Rh(D) positive. The patient is NOT a candidate for Rh Immune Globulin (RhIG). at 1024 EDT Performed By: #### L [id number] #### [facility] CLIA [id number] [address] [place] [address] [place] CBC W Auto Differential pane l (Bld)on 01-14-2025 Basophils (Bld) [#/Vol] 0.06 10*3/uL Normal <0.11 [facility] Comment on above: Order Comment: Speci men Type: BLOOD SPECIMEN Ordering Facility: [facility] Address: [address] [place] [address] Performed By: #### Martita SAUCEDA [id number] #### [facility] CLIA [id number] [address] [place] [address] [place] #### WKD #### [facility] [id number] [address] [place] [address] [place] Basophils/100 WBC (Bld) 0.7 % Normal [facility] Comment on above: Order Comment: Speci men Type: BLOOD SPECIMEN Ordering Facility: [facility] Address: [address] [place] [address] Performed By: #### Martita SAUCEDA [id number] #### [facility] CLIA [id number] [address] [place] [address] [place] #### WKD #### [facility] [id number] [address] [place] [address] [place] Differential cell count method Nom (Bld) Auto Normal [facility] Comment on above: Order Comment: Speci men Type: BLOOD SPECIMEN Ordering Facility: [facility] Address: [address] [place] [address] Performed By: #### Martita SAUCEDA [id number] #### [facility] CLIA [id number] [address] [place] [address] [place] #### WKD #### [facility] B[facility] CLIA [id number] [address] [place] [address] [place] Eosinophils (Bld) [#/Vol] 0.36 10*3/uL Normal <0.46 [facility] Comment on above: Order Comment: Speci men Type: BLOOD SPECIMEN Ordering Facility: [facility] Address: [address] [place] [address] Performed By: #### Martita SAUCEDA [id number] #### [facility] CLIA [id number] [address] [place] [address] [place] #### WKD #### [facility] CLIA [id number] [address] [place] [address] [place] Eosinophils/100 WBC (Bld) 4.0 % Normal [facility] Comment on above: Order Comment: Speci men Type: BLOOD SPECIMEN Ordering Facility: [facility] Address: [address] [place] [address] Performed By: #### Martita SAUCEDA [id number] #### [facility] CLIA [id number] [address] [place] [address] [place] #### WKD #### [facility] [id number] [address] [place] [address] [place] Erythrocyte distribution width (RBC) [Ratio] 12.7 % Normal 11.5-15.0 [facility] Comment on above: Order Comment: Speci men Type: BLOOD SPECIMEN Ordering Facility: [facility] Address: [address] [place] [address] Performed By: #### Martita SAUCEDA [id number] #### [facility] CLIA [id number] [address] [place] [address] [place] #### WKD #### [facility] CLLA [id number] [address] [place] [address] [place] Hematocrit (Bld) [Volume fraction] 39.3 % Normal 36.0-46.0 [facility] Comment on above: Order Comment: Speci men Type: BLOOD SPECIMEN Ordering Facility: [facility] Address: [address] [place] [address] Performed By: #### Martita SAUCEDA [id number] #### [facility] CLIA [id number] [address] [place] [address] [place] #### WKD #### [facility] CLIA [id number] [address] [place] [address] [place] Hemoglobin (Bld) [Mass/Vol] 13.5 g/dL Normal 11.5-15.5 [facility] Comment on above: Order Comment: Speci men Type: BLOOD SPECIMEN Ordering Facility: [facility] Address: [address] [place] [address] Performed By: #### Martita SAUCEDA [id number] #### [facility] CLIA [id number] [address] [place] [address] [place] #### WKD #### [facility] [id number] [address] [place] [address] [place] Immature granulocytes (Bld) [#/Vol] 10*3/uL Normal <0.10 [facility] Comment on above: Order Comment: Speci men Type: BLOOD SPECIMEN Ordering Facility: [facility] Address: [address] [place] [address] Performed By: #### Martita SAUCEDA [id number] #### [facility] CLIA [id number] [address] [place] [address] [place] #### WKD #### [facility] CLIA [id number] [address] [place] [address] [place] Immature granulocytes/100 WBC (Bld) 0.2 % Normal [facility] Comment on above: Order Comment: Speci men Type: BLOOD SPECIMEN Ordering Facility: [facility] Address: [address] [place] [address] Performed By: #### Martita SAUCEDA [id number] #### [facility] CLIA [id number] [address] [place] [address] [place] #### WKD #### [facility] CLIA [id number] [address] [place] [address] [place] Lymphocytes (Bld) [#/Vol] 1.44 10*3/uL Normal 1.00-4.00 [facility] Comment on above: Order Comment: Speci men Type: BLOOD SPECIMEN Ordering Facility: [facility] Address: [address] [place] [address] Performed By: #### Martita SAUCEDA, [id number] #### [facility] CLIA [id number] [address] [place] [address] [place] #### WKD #### [facility] [id number] [address] [place] [address] [place] Lymphocytes/100 WBC (Bld) 16.2 % Normal [facility] Comment on above: Order Comment: Speci men Type: BLOOD SPECIMEN Ordering Facility: [facility] Address: [address] [place] [address] Performed By: #### Martita SAUCEDA [id number] #### [facility] CLIA [id number] [address] [place] [address] [place] #### WKD #### [facility] [id number] [address] [place] [address] [place] MCH (RBC) [Entitic mass] 30.6 pg Normal 26.0-34.0 [facility] Comment on above: Order Comment: Speci men Type: BLOOD SPECIMEN Ordering Facility: [facility] Address: [address] [place] [address] Performed By: #### Martita SAUCEDA [id number] #### [facility] CLIA [id number] [address] [place] [address] [place] #### WKD #### [facility] [id number] [address] [place] [address] [place] MCHC (RBC) [Mass/Vol] 34.4 g/dL Normal 30.5-36.0 [facility] Comment on above: Order Comment: Speci men Type: BLOOD SPECIMEN Ordering Facility: [facility] Address: [address] [place] [address] Performed By: #### Martita SAUCEDA [id number] #### [facility] CLIA [id number] [address] [place] [address] [place] #### WKD #### [facility] [id number] [address] [place] [address] [place] MCV (RBC) [Entitic vol] 89.1 fL Normal 80.0-100.0 [facility] Comment on above: Order Comment: Speci men Type: BLOOD SPECIMEN Ordering Facility: [facility] Address: [address] [place] [address] Performed By: #### Martita SAUCEDA [id number] #### [facility] CLIA [id number] [address] [place] [address] [place] #### WKD #### [facility] [id number] [address] [place] [address] [place] Monocytes (Bld) [#/Vol] 0.42 10*3/uL Normal <0.87 [facility] Comment on above: Order Comment: Speci men Type: BLOOD SPECIMEN Ordering Facility: [facility] Address: [address] [place] [address] Performed By: #### Martita SAUCEDA [id number] #### [facility] CLIA [id number] [address] [place] [address] [place] #### WKD #### [facility] BLOOD [facility] CLIA [id number] [address] [place] [address] [place] Monocytes/100 WBC (Bld) 4.7 % Normal [facility] Comment on above: Order Comment: Speci men Type: BLOOD SPECIMEN Ordering Facility: [facility] Address: [address] [place] [address] Performed By: #### Martita SAUCEDA [id number] #### [facility] CLIA [id number] [address] [place] [address] [place] #### WKD #### [facility] CLIA [id number] [address] [place] [address] [place] Neutrophils (Bld) [#/Vol] 6.59 10*3/uL Normal 1.45-7.50 [facility] Comment on above: Order Comment: Speci men Type: BLOOD SPECIMEN Ordering Facility: [facility] Address: [address] [place] [address] Performed By: #### Martita SAUCEDA [id number] #### [facility] CLIA [id number] [address] [place] [address] [place] #### WKD #### [facility] CLIA [id number] [address] [place] [address] [place] Neutrophils/100 WBC (Bld) 74.2 % Normal [facility] Comment on above: Order Comment: Speci men Type: BLOOD SPECIMEN Ordering Facility: [facility] Address: [address] [place] [address] Performed By: #### Martita SAUCEDA [id number] #### [facility] CLIA [id number] [address] [place] [address] [place] #### WKD #### [facility] BLOOD [facility] CLIA [id number] [address] [place] [address] [place] Nucleated RBC (Bld) [#/Vol] 10*3/uL Normal <0.01 [facility] Comment on above: Order Comment: Speci men Type: BLOOD SPECIMEN Ordering Facility: [facility] Address: [address] [place] [address] Performed By: #### Martita SAUCEDA [id number] #### [facility] CLIA [id number] [address] [place] [address] [place] #### WKD #### [facility] CLIA [id number] [address] [place] [address] [place] Nucleated RBC/100 WBC (Bld) [Ratio] 0.0 /100 WBC Normal [facility] Comment on above: Order Comment: Speci men Type: BLOOD SPECIMEN Ordering Facility: [facility] Address: [address] [place] [address] Performed By: #### Martita SAUCEDA [id number] #### [facility] CLIA [id number] [address] [place] [address] [place] #### WKD #### [facility] [id number] [address] [place] [address] [place] Platelet mean volume (Bld) [Entitic vol] 11.3 fL Normal 9.0-12.7 [facility] Comment on above: Order Comment: Speci men Type: BLOOD SPECIMEN Ordering Facility: [facility] Address: [address] [place] [address] Performed By: #### Martita SAUCEDA [id number] #### [facility] CLIA [id number] [address] [place] [address] [place] #### WKD #### [facility] [id number] [address] [place] [address] [place] Platelets (Bld) [#/Vol] 211 10*3/uL Normal 150-400 [facility] Comment on above: Order Comment: Speci men Type: BLOOD SPECIMEN Ordering Facility: [facility] Address: [address] [place] [address] Performed By: #### Martita SAUCEDA [id number] #### [facility] CLIA [id number] [address] [place] [address] [place] #### WKD #### [facility] [id number] [address] [place] [address] [place] RBC (Bld) [#/Vol] 4.41 10*6/uL Normal 3.90-5.20 [facility] Comment on above: Order Comment: Speci men Type: BLOOD SPECIMEN Ordering Facility: [facility] Address: [address] [place] [address] Performed By: #### Martita SAUCEDA, [id number] #### [facility] CLIA [id number] [address] [place] [address] [place] #### WKD #### [facility] [id number] [address] [place] [address] [place] WBC (Bld) [#/Vol] 8.89 10*3/uL Normal 3.70-11.00 [facility] Comment on above: Order Comment: Speci men Type: BLOOD SPECIMEN Ordering Facility: [facility] Address: [address] [place] [address] Performed By: #### Martita SAUCEDA, [id number] #### [facility] CLIA [id number] [address] [place] [address] [place] #### WKD #### [facility] [id number] [address] [place] [address] [place] Comprehensive metabolic 2000 panelon 01-14-2025 Albumin [Mass/Vol] 4.4 g/dL Normal 3.9-4.9 [facility] Comment on above: Order Comment: Speci men Type: BLOOD SPECIMEN Ordering Facility: [facility] Address: [address] [place] [address] Performed By: #### 2 4323-8 #### [facility] CLIA [id number] [address] [place] [address] [place] ALP [Catalytic activity/Vol] 57 U/L Normal 34-123 [facility] Comment on above: Order Comment: Speci men Type: BLOOD SPECIMEN Ordering Facility: [facility] Address: [address] [place] [address] Performed By: #### 2 4323-8 #### [facility] CLIA [id number] [address] [place] [address] [place] ALT [Catalytic activity/Vol] 19 U/L Normal 7-38 [facility] Comment on above: Order Comment: Speci men Type: BLOOD SPECIMEN Ordering Facility: [facility] Address: [address] [place] [address] Performed By: #### 2 4323-8 #### [facility] CLIA [id number] [address] [place] [address] [place] Anion gap [Moles/Vol] 13 mmol/L Normal 8-15 [facility] Comment on above: Order Comment: Speci men Type: BLOOD SPECIMEN Ordering Facility: [facility] Address: [address] [place] [address] Performed By: #### 2 4323-8 #### [facility] CLIA [id number] [address] [place] [address] [place] AST [Catalytic activity/Vol] 17 U/L Normal 13-35 [facility] Comment on above: Order Comment: Speci men Type: BLOOD SPECIMEN Ordering Facility: [facility] Address: [address] [place] [address] Performed By: #### 2 4323-8 #### [facility] CLIA [id number] [address] [place], [place] [address] [place] Bilirubin [Mass/Vol] 0.5 mg/dL Normal 0.2-1.3 [facility] Comment on above: Order Comment: Speci men Type: BLOOD SPECIMEN Ordering Facility: [facility] Address: [address] [place] [address] Performed By: #### 2 4323-8 #### [facility] CLIA [id number] [address] [place] [address] [place] Calcium [Mass/Vol] 9.1 mg/dL Normal 8.5-10.2 [facility] Comment on above: Order Comment: Speci men Type: BLOOD SPECIMEN Ordering Facility: [facility] Address: [address] [place] [address] Performed By: #### 2 4323-8 #### [facility] CLIA [id number] [address] [place] [address] [place] Chloride [Moles/Vol] 102 mmol/L Normal 98-107 [facility] Comment on above: Order Comment: Speci men Type: BLOOD SPECIMEN Ordering Facility: [facility] Address: [address] [place] [address] Performed By: #### 2 4323-8 #### [facility] CLIA [id number] [address] [place] [address] [place] CO2 [Moles/Vol] 21 mmol/L Low 22-30 [facility] Comment on above: Order Comment: Speci men Type: BLOOD SPECIMEN Ordering Facility: [facility] Address: [address] [place] [address] Performed By: #### 2 4323-8 #### [facility] CLIA [id number] [address] [place] [address] [place] Creatinine [Mass/Vol] 0.58 mg/dL Normal 0.58-0.96 [facility] Comment on above: Order Comment: Speci men Type: BLOOD SPECIMEN Ordering Facility: [facility] Address: [address] [place] [address] Performed By: #### 2 4323-8 #### [facility] CLIA [id number] [address] [place] [address] [place] eGFRcr SerPlBld CKD-EPI 2020 120 mL/min/1.73m??? Normal >=60 [facility] Comment on above: Order Comment: Jonh dyer Type: BLOOD SPECIMEN Ordering Facility: [facility] Address: [address] [place] [address] Result Comment: Chani mated Glomerular Filtration Rate (eGFR) is calculated using the 2020 CKD-EPI creatinine equation. This equation utilizes serum creatinine, sex, and age as parameters. The creatinine assay has traceable calibration to isotope dilution-mass spectrometry. Refer to KDIGO guidelines for clinical interpretation. In patients with unstable renal function, e.g. those with acute kidney injury, the eGFR may not accurately reflect actual GFR. Performed By: #### 2 4323-8 #### [facility] CLIA [id number] [address] [place] [address] [place] Glucose [Mass/Vol] 77 mg/dL Normal 74-99 [facility] Comment on above: Order Comment: Jonh dyer Type: BLOOD SPECIMEN Ordering Facility: [facility] Address: [address] [place] [address] Result Comment: The [place] Diabetes Association (ADA) provides guidance for cutoff values for fasting glucose and random glucose. The ADA defines fasting as no caloric intake for at least 8 hours. Fasting plasma glucose results between 100 to 125 mg/dL indicate increased risk for diabetes (prediabetes). Fasting plasma glucose results greater than or equal to 126 mg/dL meet the criteria for diagnosis of diabetes. In the absence of unequivocal hyperglycemia, results should be confirmed by repeat testing. In a patient with classic symptoms of hyperglycemia or hyperglycemic crisis, random plasma glucose results greater than or equal to 200 mg/dL meet the criteria for diagnosis of diabetes. Reference: Standards of Medical Care in Diabetes 2016, [place] Diabetes Association. Diabetes Care. 2016.39(Suppl 1). Performed By: #### 2 4323-8 #### [facility] CLIA [id number] [address] [id number] [address] [place] Potassium [Moles/Vol] 3.9 mmol/L Normal 3.7-5.1 [facility] Comment on above: Order Comment: Speci men Type: BLOOD SPECIMEN Ordering Facility: [facility] Address: [address] [place] [address] Performed By: #### 2 4323-8 #### [facility] CLIA [id number] [address] [place] [address] [place] Protein [Mass/Vol] 6.9 g/dL Normal 6.3-8.0 [facility] Comment on above: Order Comment: Speci men Type: BLOOD SPECIMEN Ordering Facility: [facility] Address: [address] [place] [address] Performed By: #### 2 4323-8 #### [facility] CLIA [id number] [address] [place] [address] [place] Sodium [Moles/Vol] 136 mmol/L Normal 136-144 [facility] Comment on above: Order Comment: Speci men Type: BLOOD SPECIMEN Ordering Facility: [facility] Address: [address] [place] [address] Performed By: #### 2 4323-8 #### [facility] CLIA [id number] [address] [place] [address] [place] Urea nitrogen [Mass/Vol] 8 mg/dL Normal 7-21 [facility] Comment on above: Order Comment: Speci men Type: BLOOD SPECIMEN Ordering Facility: [facility] Address: [address] [place] [address] Performed By: #### 2 4323-8 #### [facility] CLIA [id number] [address] [place] [address] [place] Examination level ultrasound on 01-14-2025 Indication First trimester anatomic survey Advanced maternal age Impression The patient is referred for a first trimester anatomy scan including nuchal translucency measurement as clinically indicated. - Single, live, intrauterine . - Avant rump length measurement is consistent with the established gestational age. - A qualitative screen of the nuchal translucency and other anatomic structures was unremarkable on first trimester anatomic assessment. - Not all structural malformations can be detected by ultrasound examination. Maternal Structures: Right Ovary: Size 22 mm x 17 mm x 20 mm Left Ovary: Size 42 mm x 32 mm x 29 mm Recommendations - A standard anatomic survey at 16 weeks and a detailed exam at 20 weeks is recommended for increased risk. Maternal Assessment Height 160 cm Height (ft) 5 ft Height (in) 3 in Physical Exam Initial weight (lb) 161 lb Initial BMI 28.53 kg/m Maternal assessment other: 4 Para 2 REMOTE READ Method Transabdominal ultrasound examination Kaye . Number of fetuses: 1 Dating LMP on: 10/23/2024 GA by LMP 11 w + 6 d DONYA by LMP: 07/30/2025 GA by prior assessment 12 w + 5 d DONYA by prior assessment: 07/24/2025 Ultrasound examination on: 01/14/2025 GA by U/S based upon: CRL GA by U/S 13 w + 1 d DONYA by U/S: 07/21/2025 Assigned: based on ultrasound (CRL), selected on 12/14/2024 Assigned GA 12 w + 4 d Assigned DONYA: 07/25/2025 General Evaluation Cardiac activity present Placenta: posterior Cord vessels: 3 vessel cord Amniotic fluid: normal amount Biometry Standard FHR 160 bpm CRL 68.2 mm 13w 1d 78% [facility] First Trimester Anatomy Calvarium: normal Falx cerebri: normal Choroid plexus: normal Profile: normal Nasal bone: normal Retronasal triangle: normal Maxilla: normal Mandible: normal Nuchal translucency: Unremarkable Situs: normal Cardiac position: normal Cardiac axis: normal 4-chamber view: visualized 4-chamber view with color: visualized 1-[id number] view: normal Abdominal cord insertion: normal Stomach: normal Kidneys: normal Bladder: normal Color doppler of perivesical umbilical arteries: normal Vertebral alignment: normal Arms: normal Hands: normal Legs: normal Feet: normal Maternal Structures Uterus / Cervix Uterus: Visualized Uterus length 130 mm Uterus width 102 mm Uterus height 79 mm Uterus Vol 543.3 cm Ovaries / Tubes / Adnexa Rt ovary: Visualized Rt ovary D1 22 mm Rt ovary D2 17 mm Rt ovary D3 20 mm Rt ovary Vol 4.0 cm Lt ovary: Visualized Lt ovary D1 42 mm Lt ovary D2 32 mm Lt ovary D3 29 mm Lt ovary Vol 20.4 cm Performed By: Brooklyn Fong RDMS, RVT Read By: Liane Banda M.D. MATERNAL MEDICINE [facility] Radiology Study observation (narrative) [facility] HBV surface Ag Ser Qlon 07- HBV surface Ag Ql (S) Negative Normal Negative [facility] Comment on above: Order Comment: Speci men Type: BLOOD SPECIMEN Ordering Facility: [facility] Address: [address] [place] [address] Performed By: #### T KOMAL, [id number] #### [facility] CLIA [id number] [address] [place] [address] [place] #### WKD #### [facility] CLIA [id number] [address] [place] [address] [place] HCV Ab Ser Qlon 01-14-2025 HCV Ab Ql (S) Negative Normal Negative [facility] Comment on above: Order Comment: Speci men Type: BLOOD SPECIMEN Ordering Facility: [facility] Address: [address] [place] [address] Result Comment: The result suggests no evidence of infection with Hepatitis C virus. Should recent infection be suspected, repeat testing may be considered 4-6 weeks after this draw. Performed By: #### L [id number] #### [facility] CLIA [id number] [address] [place] [address] [place] HIV 1+2 Ab IA Qlon 5 HIV 1 and 2 Ab IA.rapid Nom (S/P/Bld) Normal [facility] Comment on above: Order Comment: Speci men Type: BLOOD SPECIMEN Ordering Facility: [facility] Address: [address] [place] [address] Result Comment: Test not indicated. Performed By: #### T SPN, [id number] #### [facility] CLIA [id number] [address] [place] [address] [place] #### WKD #### [facility] CL[facility] [id number] [address] [place] [address] [place] HIV 1+2 Ab+HIV1 p24 Ag IA Ql Non-Reactive Normal Nonreactive [facility] Comment on above: Order Comment: Speci men Type: BLOOD SPECIMEN Ordering Facility: [facility] Address: [address] [place] [address] Performed By: #### T KOMAL [id number] #### [facility] CLIA [id number] [address] [place] [address] [place] #### WKD #### [facility] [id number] [address] [place] [address] [place] HIV immunoassay testing algorithm interpretation (S/P/Bld) [Interp] Normal [facility] Comment on above: Order Comment: Speci men Type: BLOOD SPECIMEN Ordering Facility: [facility] Address: [address] [place] [address] Result Comment: No e vidence of HIV-1 or HIV-2 infection. Should recent infection be suspected, repeat testing may be considered 2-3 weeks after this draw. [place] Rev. Code 3701.243(E): This information has been disclosed to you from confidential records protected from disclosure by state law. You shall make no further disclosure of this information without the specific, written, and informed release of the individual to whom it pertains or as otherwise permitted by state law. A general authorization for the release of medical or other information is not sufficient for the purpose of the release of HIV test results or diagnoses. Performed By: #### T KOMAL [id number] #### [facility] CLIA [id number] [address] [place] [address] [place] #### WKD #### [facility] [id number] [address] [place] [address] [place] HbA1c (Bld)on 01-14-2025 Average glucose Estimated from glycated hemoglobin (Bld) [Mass/Vol] 94 mg/dL Normal [facility] Comment on above: Order Comment: Speci men Type: BLOOD SPECIMEN Ordering Facility: [facility] Address: [address] [place] [address] Result Comment: eAG: (Estimated average glucose) is a calculated value from HgbA1c and is technical sales representatives of the average blood glucose level in the last 2-3 month period. Performed By: #### T KOMAL [id number] #### [facility] CLIA [id number] [address] [place] [address] [place] #### WKD #### [facility] [id number] [address] [place] [address] [place] HbA1c (Bld) [Mass fraction] 4.9 % Normal 4.3-5.6 [facility] Comment on above: Order Comment: Jonh dyer Type: BLOOD SPECIMEN Ordering Facility: [facility] Address: [address] [place] [address] Result Comment: [place] Diabetes Association guidelines indicate that patients with HgbA1c in the range 5.7-6.4% are at increased risk for development of diabetes, and intervention by lifestyle modification may be beneficial. HgbA1c greater or equal to 6.5% is considered diagnostic of diabetes. Performed By: #### T KOMAL [id number] #### [facility] CLIA [id number] [address] [place] [address] [place] #### WKD #### [facility] [id number] [address] [place] [address] [place] [id number] PLUSon 01-14-2025 Cell-free DNA./Cell-free DNA.total Dosage of chromosome-specific cfDNA (cfDNA) [Molar fraction] 21% Normal [facility] Comment on above: Order Comment: Jonh dyer Type: BLOOD SPECIMEN Ordering Facility: [facility] Address: [address] [place] [address] Performed By: #### L [id number] #### [facility] CLIA [id number] [address] [place] [address] [place] Chr 13+18+21+X+Y aneuploidy Dosage of chromosome-specific cfDNA Ql (cfDNA) Negative Normal [facility] Comment on above: Order Comment: Speci men Type: BLOOD SPECIMEN Ordering Facility: [facility] Address: [address] [place] [address] Performed By: #### L [id number] #### [facility] CLIA [id number] [address] [place] [address] [place] Chr 21 trisomy Dosage of chromosome-specific cfDNA Ql (cfDNA) Negative Normal [facility] Comment on above: Order Comment: Speci men Type: BLOOD SPECIMEN Ordering Facility: [facility] Address: [address] [place] [address] Performed By: #### L [id number] #### [facility] CLIA [id number] [address] [place] [address] [place] Chr X and Y aneuploidy risk Sequencing Ql (cfDNA) [Interp] Not detected Normal [facility] Comment on above: Order Comment: Speci men Type: BLOOD SPECIMEN Ordering Facility: [facility] Address: [address] [place] [address] Result Comment: Not Detected Not Detected Performed By: #### L [id number] #### [facility] CLIA [id number] [address] [place] [address] [place] Citation Janes (Reference lab test) Comment Normal [facility] Comment on above: Order Comment: Speci men Type: BLOOD SPECIMEN Ordering Facility: [facility] Address: [address] [place] [address] Result Comment: 1. P tony ANDERSON, et al. Sanjuanita Med. 2012;14(3):296-305. 2. Demond RICE et al. Prenat Diag. 2013;33(6):591-597. 3. Macario C, et al. Clin Chem. 2015 Apr;61(4):608-616. 4. Oni ANDERSON et al. Sanjuanita Med. 2011;13(11):913-920. 5. ACOG/[facility] Practice Bulletin No. 226, Mar 2020. Performed By: #### L [id number] #### [facility] CLIA [id number] [address] [place] [address] [place] Gestational age Estimated from conception date Kaye Normal [facility] Comment on above: Order Comment: Speci men Type: BLOOD SPECIMEN Ordering Facility: [facility] Address: [address] [place] [address] Performed By: #### L [id number] #### [facility] CLIA [id number] [address] [place] [address] [place] GESTATIONALAGE AGE > OR = 9W Yes Normal [facility] Comment on above: Order Comment: Speci gomez Type: BLOOD SPECIMEN Ordering Facility: [facility] Address: [address] [place] [address] Performed By: #### L [id number] #### [facility] CLIA [id number] [address] [place] [address] [place] Laboratory comment Janes (Report) Comment Normal [facility] Comment on above: Order Comment: Jonh dyer Type: BLOOD SPECIMEN Ordering Facility: [facility] Address: [address] [place] [address] Result Comment: The MaterniT(R) 21 PLUS laboratory-developed test (LDT) analyzes circulating cell-free DNA from a maternal blood sample. This test is used for screening purposes and not diagnostic. Clinical correlation is recommended. Validation data on twin pregnancies is limited and the ability of this test to detect aneuploidy in higher multiple gestations has not yet been validated. Performed By: #### L [id number] #### [facility] CLIA [id number] [address] [place] [address] OF [place] director oracle database name Nom (Provider) Comment Normal [facility] Comment on above: Order Comment: Speci gomez Type: BLOOD SPECIMEN Ordering Facility: [facility] Address: [address] [place] [address] Result Comment: This specimen showed an expected representation of chromosome 21, 18 and 13 material. Clinical correlation is suggested. Comment Michael Vance MD, PhD, Director, [employer] Performed By: #### L [id number] #### [facility] CLIA [id number] [address] [place] [address] [id number] [place] [address] [place] LIMITATIONS OF THE TEST Comment Normal [facility] Comment on above: Order Comment: Speci men Type: BLOOD SPECIMEN Ordering Facility: [facility] Address: [address] [place] [address] Result Comment: Whil e the results of these tests are highly reliable, discordant results, including inaccurate sex prediction, may occur due to placental, maternal, or mosaicism or neoplasm; vanishing twin; prior maternal organ transplant; or other causes. These tests are screening tests and not diagnostic; they do not replace the accuracy and precision of diagnosis with CVS or amniocentesis. A patient with a positive test result should be referred for genetic counseling and offered invasive diagnosis for confirmation of test results.[5] The results of this testing, including the benefits and limitations, should be discussed with a qualified healthcare provider. management decisions, including termination of the , should not be based on the results of these tests alone. The healthcare provider is responsible for the use of this information in the management of their patient. Sex chromosomal aneuploidies are not reportable for known multiple gestations. A negative result does not ensure an unaffected nor does it exclude the possibility of other chromosomal abnormalities or defects which are not a part of these tests. An uninformative result may be reported, the causes of which may include, but are not limited to, insufficient sequencing coverage, noise or artifacts in the region, amplification or sequencing bias, or insufficient fraction. These tests are not intended to identify pregnancies at risk for neural tube defects or ventral wall defects. Testing for whole chromosome abnormalities (including sex chromosomes) and for subchromosomal abnormalities could lead to the potential discovery of both and maternal genomic abnormalities that could have major, minor, or no, clinical significance. Evaluating the significance of a positive or a non-reportable result may involve both invasive testing and additional studies on the mother. Such investigations may lead to a diagnosis of maternal chromosomal or subchromosomal abnormalities, which on occasion may be associated with benign or malignant maternal neoplasms. These tests may not accurately identify triploidy, balanced rearrangements, or the precise location of subchromosomal duplications or deletions; these may be detected by diagnosis with CVS or amniocentesis. The ability to report results may be impacted by maternal BMI, maternal weight, maternal systemic lupus erythematosus (SLE) and/or by certain pharmaceutical agents such as low molecular weight heparin (for example: Lovenox(R), Xaparin(R), Clexane(R) and Fragmin(R)). Performed By: #### L [id number] #### [facility] CLIA [id number] [address] [place] [address] STATES OF [facility] Monosomy X risk Dosage of chromosome-specific cfDNA Ql (Plasma cell-free+WBC DNA) [Interp] Not detected Normal [facility] Comment on above: Order Comment: Jonh dyer Type: BLOOD SPECIMEN Ordering Facility: [facility] Address: [address] [place] [address] Performed By: #### L [id number] #### [facility] CLIA [id number] [address] [place] [address] STATES [facility] NEGATIVE PREDICTIVE VALUE Note Normal [facility] Comment on above: Order Comment: Jonh dyer Type: BLOOD SPECIMEN Ordering Facility: [facility] Address: [address] [place] [address] Result Comment: The Negative Predictive Value (NPV) for trisomy 21, 18, and 13 is greater than 99%. The NPV for SCA and ESS cannot be calculated as SCA and ESS are only reported when an abnormality is detected. Performed By: #### L [id number] #### [facility] CLIA [id number] [address] [place] [address] OF [place] PERFORMANCE CHARACTERISTICS Note Normal [facility] Comment on above: Order Comment: Jonh dyer Type: BLOOD SPECIMEN Ordering Facility: [facility] Address: [address] [place] [address] Result Comment: ! Sex ! Accuracy: 99.4% ! ! ! ! Region (associated syndrome) ! Est. Sens# ! Est. Spec ! ! ! ! Trisomy 21 (Down Syndrome) ! 99.1% ! 99.9% ! ! ! ! Trisomy 18 (Prado Syndrome) ! >99.9% ! 99.6% ! ! ! ! Trisomy 13 (Patau Syndrome) ! 91.7% ! 99.7% ! ! ! ! Sex Chromosome Aneuploidies## ! 96.2% ! 99.7% ! ! ! * As reported in [facility] database nstd37 [https://www.ncbi.nlm.nih.gov/dbvar/studies/nstd37/ ] # Estimated Sensitivity. Sensitivity estimated across the observed size distribution of each syndrome [per [employer] database nstd37] and across the range of fractions observed in routine clinical NIPT. Actual sensitivity can also be influenced by other factors such as the size of the event, total sequence counts, amplification bias, or sequence bias. ## Kaye gestation only. Performed By: #### L [id number] #### [facility] CLIA [id number] [address] [place] [address] POSITIVE PREDICTIVE VALUE N/A Normal [facility] Comment on above: Order Comment: Speci men Type: BLOOD SPECIMEN Ordering Facility: [facility] Address: [address] [place] [address] Performed By: #### L [id number] #### [facility] CLIA [id number] [address] [place] [address] Reference Lab Test Method Comment Normal [facility] Comment on above: Order Comment: Speci men Type: BLOOD SPECIMEN Ordering Facility: [facility] Address: [address] [place] [address] Result Comment: Circ ulating cell-free DNA was purified from the plasma component of maternal blood. The extracted DNA was then converted into a genomic DNA library for aneuploidy analysis of chromosomes 21, 18, and 13 via next generation sequencing.[1] Optional findings based on the test order include sex chromosome aneuploidy (SCA)[2], and enhanced sequencing series (ESS)[3], which will only be reported on as an additional finding when an abnormality is detected. SCA testing includes information on X and Y representation, while ESS testing includes deletions in selected regions (22q, 15q, 11q, 8q, 5p, 4p, 1p) and trisomy of chromosomes 16 and 22. Performed By: #### L [id number] #### [facility] CLIA [id number] [address] [place] [address] [place] Service comment (Unsp spec) [Interp] Comment [facility] Comment on above: Order Comment: Speci men Type: BLOOD SPECIMEN Ordering Facility: [facility] Address: [address] [place] [address] Result Comment: [employer] is a subsidiary of [employer], using the brand [employer]. This test was developed and its performance characteristics determined by [employer]. It has not been cleared or approved by the Food and Drug Administration. This laboratory is certified under the Clinical Laboratory Improvement Amendments (CLIA) as qualified to perform high complexity clinical laboratory testing and accredited by the [employer] (CAP). If there is future clinical need for adding MaterniT GENOME testing, this specimen will be available until term. [facility] samples will not be retained beyond 60 days. [facility] patients will have to send a new sample for re-sequencing ([facility] Test Code: [id number]). Performed By: #### L [id number] #### [facility] CLIA [id number] [address] [place] [address] [place] Sex Dosage of chromosome-specific cfDNA Nom (cfDNA) Comment Normal [facility] Comment on above: Order Comment: Speci men Type: BLOOD SPECIMEN Ordering Facility: [facility] Address: [address] [place] [address] Result Comment: Cons istent with Female Performed By: #### L [id number] #### [facility] CLIA [id number] [address] [place] [address] [place] Test performance information Janes (Unsp spec) Comment Normal [facility] Comment on above: Order Comment: Speci men Type: BLOOD SPECIMEN Ordering Facility: [facility] Address: [address] [place] [address] Result Comment: The performance characteristics of the MaterniT(R) 21 PLUS laboratory-developed test (LDT) have been determined in a clinical validation study with women at increased risk for chromosomal aneuploidy.[1-4] Performed By: #### L [id number] #### [facility] CLIA [id number] [address] [place] [address] [place] Trisomy 13 risk Dosage of chromosome-specific cfDNA Ql (cfDNA) [Interp] Negative Normal [facility] Comment on above: Order Comment: Speci men Type: BLOOD SPECIMEN Ordering Facility: [facility] Address: [address] [place] [address] Performed By: #### L [id number] #### [facility] CLIA [id number] [address] [place] [address] STATES OF [facility] Trisomy 18 risk Dosage of chromosome-specific cfDNA Ql (Plasma cell-free+WBC DNA) [Interp] Negative Normal [facility] Comment on above: Order Comment: Speci men Type: BLOOD SPECIMEN Ordering Facility: [facility] Address: [address] [place] [address] Performed By: #### L [id number] #### [facility] CLIA [id number] [address] [place] [address] [place] Prot/Creat Uron 01-14-2025 Protein/Creatinine (U) [Mass ratio] mg/g Normal <0.15 [facility] Comment on above: Order Comment: Speci men Type: BLOOD SPECIMEN Ordering Facility: [facility] Address: [address] [place] [address] Result Comment: Adul t Proteinuria Categories: <0.15 mg/mg is considered normal to mildly increased 0.15 - 0.50 mg/mg is considered moderately increased >0.50 mg/mg is considered severely increased KDIGO. (2013). KDIGO 2012 Clinical Practice Guideline for the Evaluation and Management of Chronic Kidney Disease. Official Journal of the International Society of Nephrology, 3(1), 1-150. Performed By: #### L [id number] #### [facility] CLIA [id number] [address] [place] [address] [place] Protein/Creatinine (U) [Mass ratio]on 01-14-2025 Creatinine (U) [Mass/Vol] 29.6 mg/dL Normal 20.0-300.0 [facility] Comment on above: Order Comment: Speci men Type: BLOOD SPECIMEN Ordering Facility: [facility] Address: [address] [place] [address] Performed By: #### L [id number] #### [facility] CLIA [id number] [address] [place] [address] [place] Protein (U) [Mass/Vol] mg/dL Normal 0-20 [facility] Comment on above: Order Comment: Speci men Type: BLOOD SPECIMEN Ordering Facility: [facility] Address: [address] [place] [address] Performed By: #### L [id number] #### [facility] CLIA [id number] [address] [place] [address] [place] RUBELLA IGG ANTIBODYon 01-14 RUBELLA IGG AB, QUAL Positive Normal Positive [facility] Comment on above: Order Comment: Speci men Type: BLOOD SPECIMEN Ordering Facility: [facility] Address: [address] [place] [address] Result Comment: The result suggests recent or past exposure to Rubella virus or history of Rubella vaccination. Positive result may also be seen due to presence of passively-transferred antibodies. Please correlate with patient's history. Performed By: #### T KOMAL [id number] #### [facility] CLIA [id number] [address] [place] [address] [place] #### WKD #### [facility] CLIA [id number] [address] [place] [address] [place] Reagin and Treponema pallidu m IgG and IgM [Interp]on 01-14-2025 T. pallidum IgG+IgM IA Ql (S) Non-Reactive Normal Nonreactive [facility] Comment on above: Order Comment: Speci men Type: BLOOD SPECIMEN Ordering Facility: [facility] Address: [address] [place] [address] Performed By: #### T KOMAL [id number] #### [facility] CLIA [id number] [address] [place] [address] [place] #### WKD #### [facility] CLIA [id number] [address] [place] [address] [place] Reagin+T pallidum IgG+IgM Se rPl-Impon 01-14-2025 Reagin and Treponema pallidum IgG and IgM [Interp] Cannot exclude recent Treponemal infection if specimen collected within 7-10 days after appearance of suspect lesions or 2-3 weeks after an exposure. Clinical correlation is required. Normal [facility] Comment on above: Order Comment: Speci men Type: BLOOD SPECIMEN Ordering Facility: [facility] Address: [address] [place] [address] Performed By: #### Martita SAUCEDA [id number] #### [facility] CLIA [id number] [address] [place] [address] [place] #### WKD #### [facility] CLIA [id number] [address] [place] [address] [place] TYPE + SCREEN PRENATALon ABO O Normal [facility] Comment on above: Order Comment: Speci men Type: BLOOD SPECIMEN Ordering Facility: [facility] Address: [address] [place] [address] Performed By: #### Martita SAUCEDA [id number] #### [facility] CLIA [id number] [address] [place] [address] [place] #### WKD #### [facility] B[facility]OD [facility] CLIA [id number] [address] [place] [address] [place] Rh Nom (Bld) Negative Normal [facility] Comment on above: Order Comment: Speci men Type: BLOOD SPECIMEN Ordering Facility: [facility] Address: [address] [place] [address] Performed By: #### Martita SAUCEDA [id number] #### [facility] CLIA [id number] [address] [place] [address] [place] #### WKD #### [facility] CLIA [id number] [address] [place] [address] [place] TYPE AND SCREEN EXPIRATION 01/17/2025 23:59 Normal [facility] Comment on above: Order Comment: Speci men Type: BLOOD SPECIMEN Ordering Facility: [facility] Address: [address] [place] [address] Performed By: #### Martita SAUCEDA [id number] #### [facility] CLIA [id number] [address] [place] [address] [place] #### WKD #### [facility] CLIA [id number] [address] [place] [address] [place] WEAK RHD ANALYSISon 01-15-20 25 WEAK RHD ANALYSIS View results in Scan rashi Documents link when available. Normal [facility] Comment on above: Order Comment: Speci men Type: BLOOD SPECIMEN Ordering Facility: [facility] Address: [address] [place] [address] Performed By: #### T KOMAL, [id number] #### [facility] CLIA [id number] [address] [place] [address] [place] #### WKD #### [facility] CLIA [id number] [address] [place] [address] [place] Bacteria Ur Culton Bacteria identified Cx Nom (U) CULTURE, URINE: No growth (<1,000 CFU/ml) Normal [facility] Comment on above: Performed By: #### L [id number] #### [facility] CLIA [id number] [address] [place] [address] [place] C. trachomatis+N. gonorrhoea e DNA GERMAIN+probe Ql (Unsp spec)on 12-14-2024 C. trachomatis rRNA GERMAIN+probe Ql (Unsp spec) Not detected Normal Not detected [facility] Comment on above: Order Comment: Speci men Type: BLOOD SPECIMEN Ordering Facility: [facility] Address: [address] [place] [address] Performed By: #### L [id number] #### [facility] CLIA [id number] [address] [place] [address] STATES OF [facility] N. gonorrhoeae rRNA GERMAIN+probe Ql (Unsp spec) Not detected Normal Not detected [facility] Comment on above: Order Comment: Speci men Type: BLOOD SPECIMEN Ordering Facility: [facility] Address: [address] [place] [address] Performed By: #### L [id number] #### [facility] CLIA [id number] [address] [place] [address] [place] POC SCALP SPECIALIST ULTRASOUNDon 12-15-19 25 Indication Viability; confirm cardiac activity, Uncertain dates Impression Single intrauterine gestational sac, cardiac activity is visualized, Uncertain LMP, DONYA based on today's ultrasound Recommendations Follow up for 1st Trimester Anatomy with Nuchal Translucency as clinically indicated if desired. Method Transvaginal ultrasound examination Kaye . Number of embryos: 1 Dating LMP on: 10/23/2024 GA by LMP 7 w + 3 d DONYA by LMP: 07/30/2025 Ultrasound examination on: 12/14/2024 GA by U/S based upon: CRL GA by U/S 8 w + 1 d DONYA by U/S: 07/25/2025 Assigned: based on ultrasound (CRL), selected on 12/14/2024 Assigned GA 8 w + 1 d Assigned DONYA: 07/25/2025 Biometry Standard CRL 17.2 mm 8w 1d 86% Hadlock Assessment CRL 17.2 mm 8w 1d 86% Hadlock Cardiac activity: present General Evaluation Cardiac activity present Performed By: Jihan Enriquez CNM Read By: Jihan Enriquez CNM MATERNAL MEDICINE [facility] Radiology Study observation (narrative) [facility] TRICHOMONAS VAGINALIS Sandee 12-14-2024 T. vaginalis DNA GERMAIN+probe Ql (Unsp spec) Not detected Normal Not detected [facility] Comment on above: Order Comment: Speci men Type: BLOOD SPECIMEN Ordering Facility: [facility] Address: [address] [place] [address] Performed By: #### L [id number] #### [facility] CLIA [id number] [address] [place] [address] [place] UA DIP,URINE HCG (POC)on Beta HCG ( test) Ql (U) Positive Abnormal Negative [facility] Comment on above: Location:[facility], [address], [place], [address] Interpretation and review of laboratory results Abnormal [facility] Air Analysis Engineering Technician (POCT) Internal QC OK [facility] Location:[facility], [address], [place], [address] [facility] POINT OF CARE [facility] CNPNon 11-23-2024 CNPN Telephone (OGFVWE) RADHA CHUNG ([id number]) 1990 F Date Time Provider Department 11/23/24 NURSE TIEDOWN OPERATOR FRVW TROUP OGFVWE During your visit today, we recorded the following information about you: Drake Trent, RN 11/23/2024 9:13 AM Signed ----- Message from Sury Fonseca sent at 11/23/2024 8:31 AM EDT ----- Regardinst ob visit LMP 10/23/24 Heart condition gene that she herself is being monitored for. Please reach out to assist her in making her first ob visit. LMP 11/12/24 4w 3d wants to see Dr. Isabel. Drake Botello, RN 11/23/2024 9:18 AM Signed Call placed to patient to triage for new OB appt. Name and identified. LMP? Gestational age 4w3d When did you have a + test? yesterday PNV? Will start today Pelvic pain? no Vaginal bleeding? no Nausea? no Vomiting? no Any medical history that can effect the ? Has gene for hypertrophic cardiomyopathy but has not been diagnosed with it. 3rd . Office/provider patient wishes to establish care to? [place] Patient aware to sign up for My Chart if she does not already have it, so she can receive the geriatric personal care aide messages. Will forward this encounter to the schedulers in this office. Drake Mckeon RN, RN 11/25/2024 4:09 PM Signed Patient has appt - closing encounter. Drake Trent RN Allergies As of Date: 11/23/2024 Noted Allergy Reaction MORPHINE 09/16/2014 9 - Itching Date Reviewed: 03/20/2024 Reviewed by: Sarai Vilchis LPN - Fully Assessed Prescriptions as of 11/25/2024 - montelukast (SINGULAIR) 10 mg tablet Take 1 tablet by mouth daily at bedtime. - omalizumab (XOLAIR) 150 mg/mL syringe Inject 150 mg subcutaneously. - valACYclovir (VALTREX) 500 mg tablet Take 1 tablet by mouth once daily. - albuterol HFA (PROAIR HFA) 90 mcg/actuation inhaler Inhale 2 Puffs as instructed every 4 hours as needed. - MULTIVITAMIN ORAL Take by mouth once daily. - levonorgestrel (MIRENA) 21 mcg/24 hours (8 yrs) 52 mg IUD 1 Each by INTRAUTERINE route one time only. Meds Comments as of 03/04/2020: Iron supplement Problem List As Of Date 11/23/2024 Noted Resolved Other acne [L70.8] 11/06/2017 Supervision of normal first [Z34.00] 03/26/2012 03/06/2018 Herpes [B00.9] 03/26/2012 Unsure of LMP (last menstrual period) as reason*03/26/2012 09/11/2012 Family history of hypertrophic cardiomyopathy [*03/26/2012 Family or maternal historic risk of congenital *04/22/2012 09/11/2012 History of section [Z98.891] 02/19/2017 11/06/2017 Low HDL (under 40) [E78.6] 04/16/2018 Hypertriglyceridemia [E78.1] 04/16/2018 Other hyperlipidemia [E78.49] 04/16/2018 Obesity, Class I, BMI 30-34.9 [E66.811] 04/16/2018 Nasal polyps [J33.9] 03/15/2021 Well adult exam [Z00.00] 03/17/2022 Overweight with body mass index (BMI) of 27 to *03/20/2023 Encounter Status:Closed by DRAKE TRENT on 11/25/24 Normal [facility] DIAG W SALLIE BILon 2022 [facility] DIAG W SALLIE GWEN * * *Final Report* * * DATE OF EXAM: Apr 30 2023 9:54AM MDW 0627 - [facility] DIAG W SALLIE GWEN / PROCEDURE REASON: N64.4-Breast pain, left * * * * Physician Interpretation * * * * #[id number] - [facility] DIAG W SALLIE GWEN BILATERAL DIGITAL DIAGNOSTIC MAMMOGRAM TOMOSYNTHESIS WITH CAD: 04/30/2023 HISTORY: N64.4-Breast Pain, Left/intermittent pain left breast medially/chest wall area for about six months/baseline exam. RESULT: TECHNIQUE: The study was acquired using full field digital technology and interpreted from soft copy. Digital Breast Tomosynthesis (DBT) images were obtained and used to assist in the interpretation of this examination. Current study was also evaluated with a Computer Aided Detection (CAD). No prior exams were available for comparison. The breasts are extremely dense, which lowers the sensitivity of mammography. There are no dominant masses, indeterminate microcalcifications or suspicious findings within either breast. No significant masses, calcifications, or other findings are seen in either breast. IMPRESSION: BENIGN FINDING Negative exam. Clinical follow-up complaints of LEFT breast pain is suggested. Annual mammography is due at age 40 or sooner if clinically indicated. There is no abnormality seen in the left breast to correspond with the pain, however, clinical followup is recommended. There is no mammographic evidence of malignancy. Follow-up with ACR/NCCN guidelines. Germain MIGUEL, FSBI ch/penrad:04/30/2023 10:01:51 Meter Installer(s): RT Luiza(R)(M), [facility] Mammogram BI-RADS: 2 Benign finding Multiple national specialty organizations have released breast cancer screening guidelines for women at average risk for developing breast cancer - guidelines that are based on both evidence and opinion, yet differ on when to start and how often to screen for breast cancer. With representation from Breast Imaging, Internal Medicine, Women's Health, Family Medicine, and Medical/Surgical Oncology, the [facility] has carefully reviewed the data and reached the following consensus: 1) All women should engage in shared decision-making with their providers to decide when to start and how often to screen; 2) All women should have the opportunity to start screening mammography at age 40; 3) For women ages 45-55, we recommend annual screening mammograms; 4) For women ages 55 and over, we support both the transition from an annual to a biennial interval if this aligns more with patient's values and preferences, or continuation with annual screening; 5) All women should discuss with their providers when to stop screening mammograms. Delineator: Mari Transcribe Date/Time: Apr 30 2023 9:32A Dictated by : GERMAIN NGUYEN MD This examination was interpreted and the report reviewed and electronically signed by: GERMAIN NGUYEN MD on Apr 30 2023 10:01AM EST [id number] Normal [facility] BEVERLY RIZO BILATERALon 04-30-[address] [facility] Telephone Encounteron 2022 Ct Technologist Authentication Interface Message Text Received message from patient that she is discharged from SNF and is back at home. Wanted us to know for next shipment of medication. Will forward to pharmacy. Normal [facility] Phone Msgon 09-12-2021 Phone Msg - From: Cee Ramsey To: HAY MEJIA, DAVONTE; Sent: 09/12/2021 12:29:32 EDT Subject: Med Management On hold pending signature Order:fluticasone nasal (Xhance 93 mcg/inh nasal spray) 1 sprays Nasal BID Qty: 16 mL Refills: 11 Substitutions Allowed Route To Pharmacy - [facility] 04/17/21 Refill request received via fax from [facility]. From: DAVONTE CHAND MD Sent: 09/12/2021 13:16:45 EDT Subject: RE:Med Management Approved Order:fluticasone nasal (Xhance 93 mcg/inh nasal spray) 1 sprays Nasal BID Qty: 16 mL Refills: 11 Substitutions Allowed Route To Pharmacy - [facility] Signed by DAVONTE CHAND MD 09/12/2021 13:16:00 EDT Normal [facility] AMB ENT Physician Progress N oteon 04-17-2021 AMB ENT Physician Progress Note Chief Complaint Patient presents referred by her filter filler for nasal polyps. History of Present Illness She is referred back to me for polyp scoring assessment. Apparently this is necessary for insurance to approve a biologic medication Review of Systems Noncontributory except as noted below Physical Exam Vitals & Measurements Systolic Blood Pressure: 99 mmHg (04/17/21 14::) Diastolic Blood Pressure: 73 mmHg (04/17/21::) Mean Arterial Pressure: 82 mmHg (04/17/21::) BP Site2: Left arm (04/17/21::) Height/Length Measured: 160 cm (04/17/21 14::) Weight Measured: 71 kg (04/17/21:) Body Mass Index Measured: 27.73 kg/m2 (04/17/21 14::) Weight Measured - lbs2: 156 lb (04/17/21 14::) Height/Length Measured - in2: 63 in (04/17/21:) Body Mass Index Measured English2: 27.63 kg/m2 (04/17/21:) BSA: 1.77 m2 (04/17/21::) Ht/Wt Measurement Refused by Patient?2: No (04/17/21:) Depression Screening Scores Initial Depression Screen Score: 0 (04/17/21::) Fall Risk Assessment Is the patient ambulatory (mobile): Yes (04/17/21 14:11:) Have you had a fall within the past: No (04/17/21 14::) Have you had 2 or more falls in the past: No (04/17/21 14:11:00) In light of the history and a limited anterior rhinoscopic exam, after informed consent, the nose was sprayed with lidocaine and Wei-Synephrine. A fiberoptic nasal endoscopy was undertaken on both sides. This demonstrated a polyp score of 2 on both sides. On both sides polyps hanging lower than the inferior border of the middle turbinate Lab Results Last Months Labs No qualifying data available. Assessment/Plan 1. Nasal polyp J33.9 She has bilateral polyp scores of 2. Ordered: AMB Nasal endoscopy diag uni/bilat sep proc [id number], 04/17/2021 14:28:00 EDT, Nasal polyp, 1 Problem List/Past Medical History Ongoing No qualifying data Historical No qualifying data Procedure/Surgical History No qualifying data available. Medications fluticasone 50 mcg/inh nasal spray, 2 sprays, Nasal, DAILY WITH BREAKFAST, 11 refills fluticasone 50 mcg/inh nasal spray, 2 sprays, Nasal, DAILY WITH BREAKFAST, 11 refills montelukast 10 mg oral tablet montelukast 10 mg oral tablet, 10 mg= 1 tabs, ORAL, QPM, 4 refills multivitamin, 1 tabs, ORAL, DAILY predniSONE 20 mg oral tablet, 40 mg= 2 tabs, ORAL, ONCE predniSONE 50 mg oral tablet, 50 mg= 1 tabs, ORAL, DAILY spironolactone 100 mg oral tablet valACYclovir 1 g oral tablet Xhance 93 mcg/inh nasal spray, 1 sprays, Nasal, BID, 11 refills Xhance 93 mcg/inh nasal spray, 1 sprays, Nasal, BID, 11 refills Allergies penicillin (Itching) morphine Social History Tobacco Never (less than 100 in lifetime) Tobacco Use:., 02/09/2021 Never (less than 100 in lifetime) Tobacco Use:., 05/01/2019 Never (less than 100 in lifetime) Tobacco Use:., 04/15/2019 Never (less than 100 in lifetime) Tobacco Use:., 02/24/2019 Never (less than 100 in lifetime) Tobacco Use:., 01/13/2019 Family History Family history is unknown . Health Maintenance Pending (in the next year) Due COVID-19 Vaccine due 04/17/21 Variable frequency MMR Vaccine Dose 1 due 11/01/21 One-time only Tetanus Vaccine due 04/17/21 Variable frequency Varicella Vaccine Dose 1 due 04/17/21 One-time only Satisfied (in the past 1 year) There are no satisfied recommendations within the defined date range Sent to for review: UVALDO MILTON MD, JESSICA Smith [facility] Ambulatory Clinical Summaryo n 04-17-2021 Ambulatory Clinical Summary RADHA CHUNG :1990 Visit Date:04/17/2021 Ambulatory Visit Instructions Your Diagnosis Nasal polyp Your Care Team Attending Physician - DAVONTE CHAND MD Primary Care Physician - UVALDO MILTON Discharge Vitals Blood Pressure 99/73 Height 160 cm Weight 71 kg BMI 27.73 Systolic Blood Pressure: 99 mmHg (04/17/21 14:11:00) Diastolic Blood Pressure: 73 mmHg (04/17/21 14:11:00) Mean Arterial Pressure: 82 mmHg (04/17/21 14:11:00) BP Site2: Left arm (04/17/21 14:11:00) Height/Length Measured: 160 cm (04/17/21 14:11:00) Weight Measured: 71 kg (04/17/21 14:11:00) Body Mass Index Measured: 27.73 kg/m2 (04/17/21 14:11:00) Weight Measured - lbs2: 156 lb (04/17/21 14:11:00) Height/Length Measured - in2: 63 in (04/17/21 14:11:00) Body Mass Index Measured English2: 27.63 kg/m2 (04/17/21 14:11:00) BSA: 1.77 m2 (04/17/21 14:11:00) Ht/Wt Measurement Refused by Patient?2: No (04/17/21 14:11:00) What to do next Scheduled Follow-Up Appointments No results Medications What How Much When Why Instructions Unchanged fluticasone nasal (fluticasone 50 mcg/ inh nasal spray) 2 Sprays Nasal DAILY WITH BREAKFAST Nasal polyposis Unchanged fluticasone nasal (fluticasone 50 mcg/ inh nasal spray) 2 Sprays Nasal DAILY WITH BREAKFAST Asthma Deviated septum Anosmia Nasal polyposis Unchanged fluticasone nasal (Xhance 93 mcg/ inh nasal spray) 1 Sprays Nasal TWICE A DAY Nasal polyposis Unchanged fluticasone nasal (Xhance 93 mcg/ inh nasal spray) 1 Sprays Nasal TWICE A DAY Nasal polyposis Unchanged montelukast (montelukast 10 mg oral tablet) Unchanged montelukast (montelukast 10 mg oral tablet) 1 Tabs Oral EVERY EVENING Nasal polyposis Unchanged multivitamin 1 Tabs Oral DAILY Unchanged predniSONE (predniSONE 20 mg oral tablet) 2 Tabs Oral ONCE Duration: 7 Days Unchanged predniSONE (predniSONE 50 mg oral tablet) 1 Tabs Oral DAILY Asthma Deviated septum Anosmia Nasal polyposis Duration: 5 Days Unchanged spironolactone (spironolactone 100 mg oral tablet) Unchanged valACYclovir (valACYclovir 1 g oral tablet) Allergies penicillin (Itching) morphine Common Emergency Awareness Tips IS IT A STROKE? Act FAST and Check for these signs: FACE Does the face look uneven? ARM Does one arm drift down? SPEECH Does their speech sound strange? TIME Call at any sign of stroke Heart Attack Signs Chest discomfort: Most heart attacks involve discomfort in the center of the chest and lasts more than a few minutes, or goes away and comes back. It can feel like uncomfortable pressure, squeezing, fullness or pain. Discomfort in upper body: Symptoms can include pain or discomfort in one or both arms, back, neck, jaw or stomach. Shortness of breath: With or without discomfort. Other signs: Breaking out in a cold sweat, nausea, or lightheaded. Remember, MINUTES DO MATTER. If you experience any of these heart attack warning signs, call to get immediate medical attention! Normal [facility] Ambulatory Clinical Summary RADHA CHUNG :1990 Visit Date:04/17/2021 Ambulatory Visit Instructions Your Diagnosis Nasal polyp Your Care Team Attending Physician - HAY MEJIA, DAVONTE Primary Care Physician - UVALDO MILTON Discharge Vitals Blood Pressure 99/73 Height 160 cm Weight 71 kg BMI 27.73 Systolic Blood Pressure: 99 mmHg (04/17/21 14:11:00) Diastolic Blood Pressure: 73 mmHg (04/17/21 14:11:00) Mean Arterial Pressure: 82 mmHg (04/17/21 14:11:00) BP Site2: Left arm (04/17/21 14:11:00) Height/Length Measured: 160 cm (04/17/21 14:11:00) Weight Measured: 71 kg (04/17/21 14:11:00) Body Mass Index Measured: 27.73 kg/m2 (04/17/21 14:11:00) Weight Measured - lbs2: 156 lb (04/17/21 14:11:00) Height/Length Measured - in2: 63 in (04/17/21 14:11:00) Body Mass Index Measured English2: 27.63 kg/m2 (04/17/21 14:11:) BSA: 1.77 m2 (04/17/21 14:11:00) Ht/Wt Measurement Refused by Patient?2: No (04/17/21 14:11:00) What to do next Scheduled Follow-Up Appointments No results Medications What How Much When Why Instructions Unchanged fluticasone nasal (fluticasone 50 mcg/ inh nasal spray) 2 Sprays Nasal DAILY WITH BREAKFAST Nasal polyposis Unchanged fluticasone nasal (fluticasone 50 mcg/ inh nasal spray) 2 Sprays Nasal DAILY WITH BREAKFAST Asthma Deviated septum Anosmia Nasal polyposis Unchanged fluticasone nasal (Xhance 93 mcg/ inh nasal spray) 1 Sprays Nasal TWICE A DAY Nasal polyposis Unchanged fluticasone nasal (Xhance 93 mcg/ inh nasal spray) 1 Sprays Nasal TWICE A DAY Nasal polyposis Unchanged montelukast (montelukast 10 mg oral tablet) Unchanged montelukast (montelukast 10 mg oral tablet) 1 Tabs Oral EVERY EVENING Nasal polyposis Unchanged multivitamin 1 Tabs Oral DAILY Unchanged predniSONE (predniSONE 20 mg oral tablet) 2 Tabs Oral ONCE Duration: 7 Days Unchanged predniSONE (predniSONE 50 mg oral tablet) 1 Tabs Oral DAILY Asthma Deviated septum Anosmia Nasal polyposis Duration: 5 Days Unchanged spironolactone (spironolactone 100 mg oral tablet) Unchanged valACYclovir (valACYclovir 1 g oral tablet) Allergies penicillin (Itching) morphine Common Emergency Awareness Tips IS IT A STROKE? Act FAST and Check for these signs: FACE Does the face look uneven? ARM Does one arm drift down? SPEECH Does their speech sound strange? TIME Call at any sign of stroke Heart Attack Signs Chest discomfort: Most heart attacks involve discomfort in the center of the chest and lasts more than a few minutes, or goes away and comes back. It can feel like uncomfortable pressure, squeezing, fullness or pain. Discomfort in upper body: Symptoms can include pain or discomfort in one or both arms, back, neck, jaw or stomach. Shortness of breath: With or without discomfort. Other signs: Breaking out in a cold sweat, nausea, or lightheaded. Remember, MINUTES DO MATTER. If you experience any of these heart attack warning signs, call to get immediate medical attention! Normal [facility] Phone Msgon 04-14-2021 Phone Msg - From: Jamaica Romo MA To: DAVONTE CHAND MD; Sent: 04/07/2021 12:39:05 EDT Subject: Sangeetha Joseph from [facility] called to let us know that the medication they want to put the PT on requires a prior auth. She called to get the prior auth, it was denied. She did the peer to peer, was also denied. They are requiring that the Pt be scoped to get a polyp count... She told them that she did have a CT that shows the polyps, but still want polyp count. They are referring back to us. Wanted to see what your thoughts were on this Martha Martinez 03/13/2021 No Future visit scheduled From: DAVONTE CHAND MD To: Cee Ramsey; Sent: 04/10/2021 07:46:26 EDT Subject: FW: Meds Please explain to them I will be happy to see the patient Will let allergy know. From: Vivien Cordoba To: Cee Ramsey; Sent: 04/14/2021 11:05:48 EDT Subject: FW: Meds Left message for patient to call back and schedule an appt with Dr. Chand. Normal [facility] AMB ENT Physician Progress N coco 03-13-2021 AMB ENT Physician Progress Note Chief Complaint Patient presents for one month follow-up on nasal polyps. CT scan done at [facility]. History of Present Illness She returns the office. As before the oral steroids really improve her symptoms including temple of her sense of smell. I reviewed the CAT scan personally with her larynx showing polypoid pansinusitis. The radiographic findings are fairly severe. Unfortunately, there is no evidence of any impending complication or orbital or central nervous system involvement. Overall things look relatively stable. She continues to be compliant with XHANCE. I reviewed her laboratory studies which showed an IgE level of 111. I explained her this is not terribly high Review of Systems Noncontributory except as noted below Physical Exam Vitals & Measurements Systolic Blood Pressure: 107 mmHg (03/13/21 16:11:00) Diastolic Blood Pressure: 78 mmHg (03/13/21:11:00) Mean Arterial Pressure: 88 mmHg (03/13/21:11:) Height/Length Measured: 160 cm (03/13/21:11:00) Weight Measured: 71 kg (03/13/21:11:00) Body Mass Index Measured: 27.73 kg/m2 (03/13/21::00) Weight Measured - lbs2: 156 lb (03/13/21 16:11:00) Height/Length Measured - in2: 63 in (03/13/21:11:00) Body Mass Index Measured English2: 27.63 kg/m2 (03/13/21:11:00) BSA: 1.77 m2 (03/13/21 16:11:00) Ht/Wt Measurement Refused by Patient?2: No (03/13/21 16:11:) Depression Screening Scores Initial Depression Screen Score: 0 (03/13/21 16:11:00) Fall Risk Assessment Is the patient ambulatory (mobile): Yes (03/13/21 16:11:00) Have you had a fall within the past: No (03/13/21 16:11:00) Have you had 2 or more falls in the past: No (03/13/21 16:11:00) Patient has a grossly normal appearance with no evidence of malnutrition or deformity. Ear canals canals are free of any debris or obstruction. The middle ear is clear of any effusion or other abnormality. The tympanic membrane is intact bilaterally. External ear shows no signs of any scar, lesion, or abnormality. The external nose shows no obvious abnormalities or scars, except as noted below. The mucosa is grossly normal, as are the respiratory turbinates. The nasal septum essentially midline with only minimal deviation. There are no obvious polyps or other deformities. Oral cavity and cervical exams are unremarkable Lab Results Last Months Labs Last Month Chemistry IGE 111 02/28/21 Hematology WBC 6.3 x106/uL \.br\ 02/25/21 \.br\ HGB \.br\ 14.0 g/dL \.br\ 02/25/21 \.br\ HCT \.br\ 40.1 % \.br\ 02/25/21 \.br\ MCV \.br\ 89.6 fL \.br\ 02/25/21 \.br\ MCH \.br\ 31.3 pg \.br\ 02/25/21 \.br\ MCHC \.br\ 35.0 g/dL \.br\ 02/25/21 \.br\ RDW \.br\ 13.2\.br\ 02/25/21 \.br\ Platelet \.br\ 170 x1000 \.br\ 02/25/21 \.br\ MPV \.br\ 9.2 fL \.br\ 02/25/21 \.br\ Lymph % \.br\ 20.7 % \.br\ 02/25/21 \.br\ Cannon % \.br\ 4.9 % \.br\ 02/25/21 \.br\ Neutrophil % \.br\ 68.3 % \.br\ 02/25/21 \.br\ Eosin % \.br\ 5.7 % \.br\ 02/25/21 \.br\ Basos % \.br\ 0.5 % \.br\ 02/25/21 \.br\ Lymph Count \.br\ 1.30 x1000 \.br\ 02/25/21 \.br\ Cannon Count \.br\ 0.31 x1000 \.br\ 02/25/21 \.br\ Neutrophil Count (ANC) \.br\ 4.30 x1000 \.br\ 02/25/21 \.br\ Eos Count \.br\ 0.36 x1000 \.br\ 02/25/21 \.br\ Baso Count \.br\ 0.03 x1000 \.br\ 02/25/21 \.br\ Nucleated RBC \.br\ 0 /100WBC \.br\ 02/25/21 \.br\Assessment/Plan\.b r\ 1. Nasal polyposis J33.9\.br\ This has recurred after prior surgery. Considering how rapidly she symptomatically recurred after her operation, we have mutually agreed to hold off any surgery for now. I have encouraged compliance with XHANCE I have suggested a course of a biologic medication would be the most appropriate step. I explained her there are 3 approved biologic medications available, and that I would respect the opinion of Dr. Brandon regarding which one would be right for her. I will plan on seeing her back myself in 4 months, but she will let me know in the meantime if further issues arise\.br\ Ordered:\.br\ AMB Office/Outpt Est Pt Mod MDM / 30-39 min [id number], 03/13/2021 16:24:00 EDT, Nasal polyposis\.br\ \.br\Problem List/Past Medical History\.br\ Ongoing\.br\ No qualifying data\.br\ Historical\.br\ No qualifying data\.br\Procedure/Surg ical History\.br\ No qualifying data available.\.br\Medicati ons\.br\ fluticasone 50 mcg/inh nasal spray, 2 sprays, Nasal, DAILY WITH BREAKFAST, 11 refills\.br\ fluticasone 50 mcg/inh nasal spray, 2 sprays, Nasal, DAILY WITH BREAKFAST, 11 refills\.br\ montelukast 10 mg oral tablet\.br\ montelukast 10 mg oral tablet, 10 mg= 1 tabs, ORAL, QPM, 4 refills\.br\ multivitamin, 1 tabs, ORAL, DAILY\.br\ predniSONE 20 mg oral tablet, 40 mg= 2 tabs, ORAL, ONCE\.br\ predniSONE 50 mg oral tablet, 50 mg= 1 tabs, ORAL, DAILY\.br\ spironolactone 100 mg oral tablet\.br\ valACYclovir 1 g oral tablet\.br\ Xhance 93 mcg/inh nasal spray, 1 sprays, Nasal, BID, 11 refills\.br\ Xhance 93 mcg/inh nasal spray, 1 sprays, Nasal, BID, 11 refills\.br\Allergies\. br\ penicillin (Itching)\.br\ morphine\.br\Social History\.br\ Tobacco\.br (more content not included)... Normal [facility] Ambulatory Clinical Summaryo n 03-13-2021 Ambulatory Clinical Summary RADHA CHUNG :1990 Visit Date:03/13/2021 Ambulatory Visit Instructions Your Diagnosis Nasal polyposis Your Care Team Attending Physician - HAY MEJIA, DAVONTE Primary Care Physician - UVALDO MILTON Discharge Vitals Blood Pressure 107/78 Height 160 cm Weight 71 kg BMI 27.73 Systolic Blood Pressure: 107 mmHg (03/13/21 16:11:00) Diastolic Blood Pressure: 78 mmHg (03/13/21 16:11:00) Mean Arterial Pressure: 88 mmHg (03/13/21 16:11:00) Height/Length Measured: 160 cm (03/13/21 16:11:00) Weight Measured: 71 kg (03/13/21 16:11:00) Body Mass Index Measured: 27.73 kg/m2 (03/13/21 16:11:00) Weight Measured - lbs2: 156 lb (03/13/21 16:11:00) Height/Length Measured - in2: 63 in (03/13/21 16:11:00) Body Mass Index Measured English2: 27.63 kg/m2 (03/13/21 16:11:00) BSA: 1.77 m2 (03/13/21 16:11:00) Ht/Wt Measurement Refused by Patient?2: No (03/13/21 16:11:00) What to do next Scheduled Follow-Up Appointments No results Medications What How Much When Why Instructions Unchanged fluticasone nasal (fluticasone 50 mcg/ inh nasal spray) 2 Sprays Nasal DAILY WITH BREAKFAST Nasal polyposis Unchanged fluticasone nasal (fluticasone 50 mcg/ inh nasal spray) 2 Sprays Nasal DAILY WITH BREAKFAST Asthma Deviated septum Anosmia Nasal polyposis Unchanged fluticasone nasal (Xhance 93 mcg/ inh nasal spray) 1 Sprays Nasal TWICE A DAY Nasal polyposis Unchanged fluticasone nasal (Xhance 93 mcg/ inh nasal spray) 1 Sprays Nasal TWICE A DAY Nasal polyposis Unchanged montelukast (montelukast 10 mg oral tablet) Unchanged montelukast (montelukast 10 mg oral tablet) 1 Tabs Oral EVERY EVENING Nasal polyposis Unchanged multivitamin 1 Tabs Oral DAILY Unchanged predniSONE (predniSONE 20 mg oral tablet) 2 Tabs Oral ONCE Duration: 7 Days Unchanged predniSONE (predniSONE 50 mg oral tablet) 1 Tabs Oral DAILY Asthma Deviated septum Anosmia Nasal polyposis Duration: 5 Days Unchanged spironolactone (spironolactone 100 mg oral tablet) Unchanged valACYclovir (valACYclovir 1 g oral tablet) Allergies penicillin (Itching) morphine Common Emergency Awareness Tips IS IT A STROKE? Act FAST and Check for these signs: FACE Does the face look uneven? ARM Does one arm drift down? SPEECH Does their speech sound strange? TIME Call at any sign of stroke Heart Attack Signs Chest discomfort: Most heart attacks involve discomfort in the center of the chest and lasts more than a few minutes, or goes away and comes back. It can feel like uncomfortable pressure, squeezing, fullness or pain. Discomfort in upper body: Symptoms can include pain or discomfort in one or both arms, back, neck, jaw or stomach. Shortness of breath: With or without discomfort. Other signs: Breaking out in a cold sweat, nausea, or lightheaded. Remember, MINUTES DO MATTER. If you experience any of these heart attack warning signs, call to get immediate medical attention! Normal [facility] IGEon 02-28-2021 IgE Qn 111 [IU]/L Normal <=214 [facility] Comment on above: Result Comment: REFE RENCE INTERVAL: Immunoglobulin E, Serum Access complete set of age- and/or gender-specific reference intervals for this test in the [facility] Test Directory ([facility]). Performed By: [address] [place] [address] Composing Room Supervisor: Fransisca Hernandez MD Performed By: #### [id number] ####[facility] [id number] [place] [address] Medical Director: Miky Duarte MD AUTO DIFFon 02-25-2021 Baso Count 0.03 x1000 Normal 0.00-0.20 [facility] Comment on above: Performed By: #### [id number] #### [facility] [address] [place] [id number] Escalation Engineer: Miky Duarte MD Basos % 0.5 % Normal [facility] Comment on above: Performed By: #### [id number] #### [facility] [address] [place] [id number] Escalation Engineer: Miky Duarte MD Eos Count 0.36 x1000 Normal 0.00-0.50 [facility] Comment on above: Performed By: #### [id number] #### [facility] [address] [place] [id number] Escalation Engineer: Miky Duarte MD Eosinophils/100 WBC (Bld) 5.7 % Normal [facility] Comment on above: Performed By: #### [id number] #### [facility] [address] [place] [id number] Escalation Engineer: Miky Duarte MD Lymph Count 1.30 x1000 Normal 1.20-4.80 [facility] Comment on above: Performed By: #### [id number], [id number] #### [facility] [address] [place] [id number] Escalation Engineer: Miky Duarte MD Lymphocytes/100 WBC (Bld) 20.7 % Normal [facility] Comment on above: Performed By: #### [id number] #### [facility] [address] [place] [id number] Escalation Engineer: Miky Duarte MD Cannon Count 0.31 x1000 Normal 0.10-1.00 [facility] Comment on above: Performed By: #### 9 [id number] #### [facility] [address] [place] [id number] Escalation Engineer: Miky Duarte MD Monocytes/100 WBC (Bld) 4.9 % Normal [facility] Comment on above: Performed By: #### [id number], [id number] #### [facility] [address] [place] [address] Escalation Engineer: Miky Duarte MD Neutrophil Count (ANC) 4.30 x1000 Normal 1.40-8.80 [facility] Comment on above: Performed By: #### 9 [id number], [id number] #### [facility] [address] [place] [address] Escalation Engineer: Miky Duarte MD Neutrophils/100 WBC (Bld) 68.3 % Normal [facility] Comment on above: Performed By: #### 9 [id number], [id number] #### [facility] [address] [place] [address] Escalation Engineer: Miky Duarte MD CT TRACEY SINUS NASO WO CON TRASTon 02-25-2021 CT TRACEY SINUS NASO WO CONTRAST Clinical history: WHAT SYMPTOMS ARE YOU EXPERIENCING? - tracey protocol-nasal polyps, loss of smell x 4 yrs, hx of nasal polyp removed. Sex: Female. : 1990. Technique: Axial scans were performed through the paranasal sinuses without contrast including computer generated reformations. Total Dose Length Product: 381. This exam was performed according to our departmental dose-optimization program, which includes automated exposure control, adjustment of the mA and/or kV according to patient size and/or use of iterative reconstruction technique. Comparison exam: January 21, 2019 Frontal sinuses: The frontal sinuses are completely opacified. Similar to the 2019 exam. Ethmoid sinuses: There is near complete opacification of the anterior and posterior ethmoid sinuses bilaterally. Similar to the 2019 exam Maxillary antra: Right maxillary antrum: There is severe right maxillary mucoperiosteal thickening. Worse than on the 2019 exam that showed a small amount of right maxillary fluid. There is a blocked maxillary intranasal antrostomy. Left maxillary antrum: There is moderate left maxillary mucoperiosteal thickening. Worse than on the 2019 exam. There is a partially blocked left maxillary intranasal antrostomy. Nasal cavity: Nasal septum: Irregularly thickened nasal septum. Anterior septal deviation to the right, posteriorly to the left. There is moderate thickening in the nasal cavity mucosa particularly along the upper margins. Nasal turbinates: Inferior turbinates are swollen. Partial middle turbinectomy is suggested. Nasal meatus: There is moderate stenosis of the inferior nasal meatus. Sphenoid sinuses: There is near complete right hand complete left sphenoid opacification representing a significant worsening since the 2019 exam. In the left sphenoid sinus there is central hyperattenuation component of the thickening that can be seen with fungal infection. Impression: 1. Worsening pansinusitis. 2. Evidence for intranasal sinus surgery. 3. Blocked drainage pathways. 4. Septal deviation. 5. Inferior turbinate swelling and nasal meatal stenosis. Electronically signed by: Mauro Helm MD 02/25/2021 9:54 AM CDT Normal [facility] Comment on above: Order Comment: Order ed on [facility]# [id number] Result Comment: Tech nologist: DJ Dictated By: MAURO HELM MD Signed By: MAURO HELM MD Signed Out: 02/25/21 10:54:27 HEMOon 02-25-2021 DIFF? No Normal [facility] Comment on above: Performed By: #### 9 [id number] #### [facility] [address] [place] [address] Escalation Engineer: Miky Duarte MD Erythrocyte distribution width (RBC) [Ratio] 13.2 % Normal 11.5-14.5 [facility] Comment on above: Performed By: #### 9 [id number], [id number] #### [facility] [address] [place] [address] Escalation Engineer: Miky Duarte MD Hematocrit (Bld) [Volume fraction] 40.1 % Normal 36.0-46.0 [facility] Comment on above: Performed By: #### 9 [id number], [id number] #### [facility] [address] [place] [address] Escalation Engineer: Miky Duarte MD Hemoglobin (Bld) [Mass/Vol] 14.0 g/dL Normal 12.0-16.0 [facility] Comment on above: Performed By: #### 9 [id number], [id number] #### [facility] [address] [place] [address] Escalation Engineer: Miky Duarte MD Instr WBC 6.3 Normal [facility] Comment on above: Performed By: #### 9 [id number], [id number] #### [facility] [address] [place] [address]167 Escalation Engineer: Miky Duarte MD MCH (RBC) [Entitic mass] 31.3 pg Normal 27.0-34.0 [facility] Comment on above: Performed By: #### 9 [id number], [id number] #### [facility] [address] [place] [address] Escalation Engineer: Miky Duarte MD MCHC (RBC) [Mass/Vol] 35.0 g/dL Normal 32.0-37.0 [facility] Comment on above: Performed By: #### 9 [id number], [id number] #### [facility] [address] [place] [address]87[address] Escalation Engineer: Miky Duarte MD MCV (RBC) [Entitic vol] 89.6 fL Normal 80.0-100.0 [facility] Comment on above: Performed By: #### 9 [id number], [id number] #### [facility] [address] [place] [address] Escalation Engineer: Miky Duarte MD Nucleated RBC 0 /100WBC Normal [facility] Comment on above: Performed By: #### 9 [id number], [id number] #### [facility] [address] [place] [address] Escalation Engineer: Miky Duarte MD Platelet 170 x1000 Normal 150-450 [facility] Comment on above: Performed By: #### 9 [id number], [id number] #### [facility] [address] [place] [address] Escalation Engineer: Miky Duarte MD Platelet mean volume (Bld) [Entitic vol] 9.2 fL Normal 7.4-10.4 [facility] Comment on above: Performed By: #### 9 [id number], [id number] #### [facility] [address] [place] [address]85 Escalation Engineer: Miky Duarte MD RBC 4.48 x10 Normal 4.20-5.40 [facility] Comment on above: Result Comment: Note : RBC morphology is normal unless otherwise stated. Evaluation performed only if differential is requested. Performed By: #### 9 [id number], [id number] #### [facility] [address] [place] [address] Escalation Engineer: Miky Duarte MD WBC 6.3 x10 Normal 4.5-11.0 [facility] Comment on above: Performed By: #### 9 [id number], [id number] #### [facility] [address] [place] [address] Escalation Engineer: Miky Duarte MD Phone Msgon 02-14-2021 Phone Msg - From: Mel Neves To: DAVONTE CHAND MD; Sent: 02/14/2021 08:41:08 EDT Subject: PRESCRIPTION QUESTION Pt is not sure if you wanted her to take the Prednisone before she has her ct scan done or after. L.V. 02/09/21 (ok to leave a message) From: DAVONTE CHAND MD To: Braulio Cee; Sent: 02/14/2021 10:12:04 EDT Subject: FW: PRESCRIPTION QUESTION Please tell her it really does not matter. We will not change the mireles features I am looking for on the CAT scan Spoke with patient. Normal [facility] AMB ENT Physician Progress N coco 02-09-2021 AMB ENT Physician Progress Note Chief Complaint Patient presents for check on sinuses - c/o anosmia x 1 year. History of Present Illness She returns the office. Her airway has been fairly good but anosmia has remained very problematic. She recently developed a sensitivity to nonsteroidal medications with immediate flareup of asthma. She was diagnosed with Samter's triad. She is laboratory studies pending including total IgE. I am asked to reassess her. Review of Systems Noncontributory except as noted below Physical Exam Vitals & Measurements Systolic Blood Pressure: 107 mmHg (02/09/21 16:29:00) Diastolic Blood Pressure: 71 mmHg (02/09/21 16:29:00) Mean Arterial Pressure: 83 mmHg (02/09/21 16:29:00) BP Site2: Left arm (02/09/21:29:00) Height/Length Measured: 160 cm (02/09/21:29:00) Weight Measured: 71 kg (02/09/21:29:00) Body Mass Index Measured: 27.73 kg/m2 (02/09/21 16:29:00) Weight Measured - lbs2: 157 lb (02/09/21:29:00) Height/Length Measured - in2: 63 in (02/09/21:29:00) Body Mass Index Measured English2: 27.81 kg/m2 (02/09/21 16:29:00) BSA: 1.78 m2 (02/09/21:29:00) Ht/Wt Measurement Refused by Patient?2: No (02/09/21 16:29:00) Depression Screening Scores Initial Depression Screen Score: 0 (02/09/21 16:29:00) Fall Risk Assessment Is the patient ambulatory (mobile): Yes (02/09/21 16:29:00) Have you had a fall within the past: No (02/09/21 16:29:00) Have you had 2 or more falls in the past: No (02/09/21 16:29:00) Patient has a grossly normal appearance with no evidence of malnutrition or deformity. Ear canals canals are free of any debris or obstruction. The middle ear is clear of any effusion or other abnormality. The tympanic membrane is intact bilaterally. External ear shows no signs of any scar, lesion, or abnormality. In light of the history and a limited anterior rhinoscopic exam, after informed consent, the nose was sprayed with lidocaine and Wei-Synephrine. A fiberoptic nasal endoscopy was undertaken on both sides. This demonstrated massive nasal polyposis, high in the nasal vault. The airway looks fairly good despite this. There is some mucus draining from the right maxillary sinus. Oral cavity and cervical exams are unremarkable. Lab Results Last Months Labs No qualifying data available. Assessment/Plan 1. Nasal polyposis J33.9 I put her on 7 days of prednisone. I ordered a posttreatment CT scan. Of asked her to stay with the XHANCE for now. I will see her back in 1 month to assess her response Ordered: AMB Office/Outpt Est Pt Low MDM / 20-29 min [id number], 02/09/2021 16:52:00 EDT, Nasal polyposis / Asthma / Samter's triad CT TRACEY SINUS NASO WO CONTRAST, 02/09/2021, Routine, INFECTION, Nasal polyposis / Asthma / Samter's triad 2. Asthma J45.909, Samter's triad J45.909 I discussed the role of Biologics in her management in the future. I have given her the name of a few to review, have encouraged discussion with Dr. Brandon as well. Ordered: AMB Office/Outpt Est Pt Low MDM / 20-29 min [id number], 02/09/2021 16:52:00 EDT, Nasal polyposis / Asthma / Samter's triad CT TRACEY SINUS NASO WO CONTRAST, 02/09/2021, Routine, INFECTION, Nasal polyposis / Asthma / Samter's triad Problem List/Past Medical History Ongoing No qualifying data Historical No qualifying data Procedure/Surgical History No qualifying data available. Medications fluticasone 50 mcg/inh nasal spray, 2 sprays, Nasal, DAILY WITH BREAKFAST, 11 refills, Not taking fluticasone 50 mcg/inh nasal spray, 2 sprays, Nasal, DAILY WITH BREAKFAST, 11 refills, Not taking montelukast 10 mg oral tablet, Not taking montelukast 10 mg oral tablet, 10 mg= 1 tabs, ORAL, QPM, 4 refills multivitamin, 1 tabs, ORAL, DAILY predniSONE 50 mg oral tablet, 50 mg= 1 tabs, ORAL, DAILY, Not taking spironolactone 100 mg oral tablet valACYclovir 1 g oral tablet Xhance 93 mcg/inh nasal spray, 1 sprays, Nasal, BID, 11 refills, Not taking Xhance 93 mcg/inh nasal spray, 1 sprays, Nasal, BID, 11 refills Allergies penicillin (Itching) morphine Social History Tobacco Never (less than 100 in lifetime) Tobacco Use:., 02/09/2021 Never (less than 100 in lifetime) Tobacco Use:., 05/01/2019 Never (less than 100 in lifetime) Tobacco Use:., 04/15/2019 Never (less than 100 in lifetime) Tobacco Use:., 02/24/2019 Never (less than 100 in lifetime) Tobacco Use:., 01/13/2019 Family History Family history is unknown . Health Maintenance Pending (in the next year) Due COVID-19 Vaccine due 02/09/21 Variable frequency MMR Vaccine Dose 1 due 02/09/21 One-time only Tetanus Vaccine due 02/09/21 Variable frequency Varicella Vaccine Dose 1 due 02/09/21 One-time only Satisfied (in the past 1 year) There are no satisfied recommendations within the defined date range Sent to for review: UVALDO MILTON MD, JESSICA Smith [facility] Ambulatory Clinical Summaryo n 02-09-2021 Ambulatory Clinical Summary RADHA CHUNG :1990 Visit Date:02/09/2021 Ambulatory Visit Instructions Your Diagnosis Nasal polyposis Asthma, Samter's triad Your Care Team Attending Physician - DAVONTE CHAND MD Primary Care Physician - UVALDO MILTON Discharge Vitals Blood Pressure 107/71 Height 160 cm Weight 71 kg BMI 27.73 Systolic Blood Pressure: 107 mmHg (02/09/21 16:29:00) Diastolic Blood Pressure: 71 mmHg (02/09/21 16:29:00) Mean Arterial Pressure: 83 mmHg (02/09/21 16:29:00) BP Site2: Left arm (02/09/21 16:29:00) Height/Length Measured: 160 cm (02/09/21 16:29:00) Weight Measured: 71 kg (02/09/21 16:29:00) Body Mass Index Measured: 27.73 kg/m2 (02/09/21 16:29:00) Weight Measured - lbs2: 157 lb (02/09/21:29:00) Height/Length Measured - in2: 63 in (02/09/21::00) Body Mass Index Measured English2: 27.81 kg/m2 (02/09/21:29:00) BSA: 1.78 m2 (02/09/21::) Ht/Wt Measurement Refused by Patient?2: No (02/09/21 16:29:) What to do next Scheduled Follow-Up Appointments No results You Need to Schedule the Following Appointments CT TRACEY SINUS NASO WO CONTRAST, 02/09/2021, Routine, INFECTION, Nasal polyposis / Asthma / Samter's triad Medications What How Much When Why Instructions Unchanged fluticasone nasal (fluticasone 50 mcg/ inh nasal spray) 2 Sprays Nasal DAILY WITH BREAKFAST Nasal polyposis Unchanged fluticasone nasal (fluticasone 50 mcg/ inh nasal spray) 2 Sprays Nasal DAILY WITH BREAKFAST Asthma Deviated septum Anosmia Nasal polyposis Unchanged fluticasone nasal (Xhance 93 mcg/ inh nasal spray) 1 Sprays Nasal TWICE A DAY Nasal polyposis Unchanged fluticasone nasal (Xhance 93 mcg/ inh nasal spray) 1 Sprays Nasal TWICE A DAY Nasal polyposis Unchanged montelukast (montelukast 10 mg oral tablet) Unchanged montelukast (montelukast 10 mg oral tablet) 1 Tabs Oral EVERY EVENING Nasal polyposis Unchanged multivitamin 1 Tabs Oral DAILY Unchanged predniSONE (predniSONE 50 mg oral tablet) 1 Tabs Oral DAILY Asthma Deviated septum Anosmia Nasal polyposis Duration: 5 Days Unchanged spironolactone (spironolactone 100 mg oral tablet) Unchanged valACYclovir (valACYclovir 1 g oral tablet) Allergies penicillin (Itching) morphine Common Emergency Awareness Tips IS IT A STROKE? Act FAST and Check for these signs: FACE Does the face look uneven? ARM Does one arm drift down? SPEECH Does their speech sound strange? TIME Call at any sign of stroke Heart Attack Signs Chest discomfort: Most heart attacks involve discomfort in the center of the chest and lasts more than a few minutes, or goes away and comes back. It can feel like uncomfortable pressure, squeezing, fullness or pain. Discomfort in upper body: Symptoms can include pain or discomfort in one or both arms, back, neck, jaw or stomach. Shortness of breath: With or without discomfort. Other signs: Breaking out in a cold sweat, nausea, or lightheaded. Remember, MINUTES DO MATTER. If you experience any of these heart attack warning signs, call to get immediate medical attention! Normal [facility] Phone [employer] 02-09-2021 Phone Msg - From: Cee Ramsey To: DAVONTE CHAND MD; Sent: 02/09/2021 16:57:34 EDT Subject: Med Management On hold pending signature Order:predniSONE (predniSONE 20 mg oral tablet) 2 tabs ORAL ONCE Qty: 14 tabs Duration: 7 days Refills: 0 Substitutions Allowed Route To Pharmacy - [id number] From: DAVONTE CHAND MD Sent: 02/09/2021 17:09:09 EDT Subject: RE:Med Management Approved Order:predniSONE (predniSONE 20 mg oral tablet) 2 tabs ORAL ONCE Qty: 14 tabs Duration: 7 days Refills: 0 Substitutions Allowed Route To Pharmacy - [id number] Signed by DAVONTE CHAND MD 02/09/2021 17:09:00 EDT Normal [facility] Phone Msgon 10-11-2020 Phone Msg - From: Cee Ramsey To: DAVONTE CHAND MD; Sent: 10/11/2020 10:11:06 EDT Subject: Med Management On hold pending signature Order:fluticasone nasal (Xhance 93 mcg/inh nasal spray) 1 sprays Nasal BID Qty: 16 mL Refills: 11 Substitutions Allowed Route To [facility] 11/04/19 Refill requested received via fix from [employer]. From: DAVONTE CHAND MD Sent: 10/11/2020 10:37:18 EDT Subject: RE:Med Management Approved Order:fluticasone nasal (Xhance 93 mcg/inh nasal spray) 1 sprays Nasal BID Qty: 16 mL Refills: 11 Substitutions Allowed Route To Pharmacy - [facility] Signed by DAVONTE CHAND MD 10/11/2020 10:37:00 EDT Normal [facility] TPO Abon 06-01-2019 TPO Ab 0.6 [IU]/mL Normal 0.0-5.5 [facility] Comment on above: Performed By: #### F T4M, TSH5, FERR3 #### [facility] [address] [place] [address] #### TT3O #### [facility] [address] [place] [address] #### TPO2 #### [facility] [address] [place] [address] Ferritinon 05-29-2019 Ferritin [Mass/Vol] 18 ng/mL Normal 8-252 [facility] Comment on above: Performed By: #### F T4M, TSH5, FERR3 #### [facility] [address] [place] [address] #### TT3O #### [facility] [address] [place] [address] #### TPO2 #### [facility] [address] [address] FerritinOrdered By: Uvaldo gallardo on 05-29-2019 Ferritin [Mass/Vol] 18 ng/mL 8 - 252 ng/mL [employer]FFANY THIBODE[employer] Work Phone: Test Performed by [facility], [address] , [place] [address] [facility] Work Phone: Free T4on 05-29-2019 Free T4 [Mass/Vol] 1.19 ng/dL Normal 0.78-2.19 [facility] Comment on above: Performed By: #### F T4M, TSH5, FERR3 #### [facility] [address] [place] [address] #### TT3O #### [facility] [address] [place] [address] #### TPO2 #### [facility] [address] [place] [address] [id number] By: Uvaldo Remy on 05-29-2019 T3, Total 140 ng/dL 97 - 169 ng/dL [facility] Work Phone: Test Performed by [facility], [address] [place] [address] [facility] Work Phone: T3, Totalon 05-29-2019 T3, Total 140 ng/dL Normal 97-169 [facility] Comment on above: Performed By: #### F T4M, TSH5, FERR3 #### [facility] [address] [place] [address] #### TT3O #### [facility] [address] [place] [address] #### TPO2 #### [facility] [address] [place] [id number] T4, FreeOrdered By: Uvaldo gallardo on 05-29-2019 Free T4 [Mass/Vol] 1.19 ng/dL 0.78 - 2. 19 ng/dL [facility] Work Phone: Test Performed by [facility], [address] , [place] [address] [facility] Work Phone: TSH without ReflexOrdered By : Uvaldo Remy on 05-29-2019 TSH 1.576 u[IU]/mL 0.465 - 4.68 u[IU]/mL [facility] Work Phone: Test Performed by [facility], [address] , [place], [place] [address] [facility] Work Phone: Thyroid Stim. Hormoneon 05-17 Thyroid Stim. Hormone 1.576 u[IU]/mL Normal 0.465-4.680 [facility] Comment on above: Performed By: #### F T4M, TSH5, FERR3 #### [facility] [address] [place] [address] #### TT3O #### [facility] [address] [place] [address] #### TPO2 #### [facility] [address] [place] [address] Basic Metabolic Panelon 03-17 Calcium [Mass/Vol] 9.7 mg/dL Normal 8.4-10.4 [facility] Comment on above: Performed By: #### B MP3 #### [facility] [address] [place] [address] Anion gap [Moles/Vol] 11 Normal [facility] Comment on above: Performed By: #### B MP3 #### [facility] [address] [place] [address] CO2 [Moles/Vol] 27 mmol/L Normal 22-30 [facility] Comment on above: Performed By: #### B MP3 #### [facility] [address] [place] [address] Creatinine [Mass/Vol] 0.81 mg/dL Normal 0.52-1.25 [facility] Comment on above: Performed By: #### B MP3 #### [facility] [address] [place] [address] GFR/1.73 sq M predicted among blacks MDRD (S/P/Bld) [Vol rate/Area] mL/min/{1.73_m2} Normal >60 [facility] Comment on above: Performed By: #### B MP3 #### [facility] [address] [place] [address] GFR/1.73 sq M predicted among non-blacks MDRD (S/P/Bld) [Vol rate/Area] mL/min/{1.73_m2} Normal >60 [facility] Comment on above: Result Comment: Sour ce- MDRD equation with creatinine calibration to IDMS(NKDEP) eGFR not recommended for drug dose adjustment Performed By: #### B MP3 #### [facility] [address] [place] [address] Glucose [Mass/Vol] 74 mg/dL Normal 70-100 [facility] Comment on above: Performed By: #### B MP3 #### [facility] [address] [place] [address] Urea nitrogen [Mass/Vol] 14 mg/dL Normal 7-20 [facility] Comment on above: Performed By: #### B MP3 #### [facility] [address] [place] [address] Chloride [Moles/Vol] 103 mmol/L Normal 98-107 [facility] Comment on above: Performed By: #### B MP3 #### [facility] [address] [place] [address] Potassium [Moles/Vol] 4.6 mmol/L Normal 3.5-5.1 [facility] Comment on above: Performed By: #### B MP3 #### [facility] [address] [place] [address] Sodium [Moles/Vol] 141 mmol/L Normal 135-145 [facility] Comment on above: Performed By: #### B MP3 #### [facility] [address] [place] [address] Anion gap [Moles/Vol] 11 mmol/L [place], [place] Calcium [Mass/Vol] 9.7 mg/dL 8.4 - 10. 4 mg/dL [place] Chloride [Moles/Vol] 103 mmol/L 98 - 107 mmol/L [place] CO2 [Moles/Vol] 27 mmol/L 22 - 30 mmol/L [place] Creatinine [Mass/Vol] 0.81 mg/dL 0.52 - 1.25 mg/dL [place] EGFR IF NonAfrican German >60.0 >60 mL/min [place] Comment on above: Source- MDRD equatio n with creatinine calibration to IDMS(NKDEP) eGFR not recommended for drug dose adjustment GFR/1.73 sq M predicted among blacks MDRD (S/P/Bld) [Vol rate/Area] mL/min/{1.73_m2} >60 mL/min [place] Glucose [Mass/Vol] 74 mg/dL 70 - 100 mg/dL [place], [place] Potassium [Moles/Vol] 4.6 mmol/L 3.5 - 5.1 mmol/L [place] Sodium [Moles/Vol] 141 mmol/L 135 - 145 mmol/L [place] Urea nitrogen [Mass/Vol] 14 mg/dL 7 - 20 mg/dL [place] Test Performed by [facility], [address] Lipid Panelon 04-02-2019 Cholesterol in HDL [Mass/Vol] 40 mg/dL Normal 40-60 [facility] Comment on above: Performed By: #### L IPD2 #### [facility] [address] [place] [address] Cholesterol.total/C holesterol in HDL [Mass ratio] 4 Normal [facility] Comment on above: Result Comment: Ref Range: < 3 Low Risk for CHD 3-6 Mod Risk for CHD > 6 High Risk for CHD Performed By: #### L IPD2 #### [facility] [address] [place] [address] Protein [Mass/Vol] 98 mg/dL Normal <100 [facility] Comment on above: Performed By: #### L IPD2 #### [facility] [address] [place] [address] Cholesterol [Mass/Vol] 162 mg/dL Normal < 200 [facility] Comment on above: Performed By: #### L IPD2 #### [facility] [address] [place] [address] Triglyceride [Mass/Vol] 119 mg/dL Normal <150 [facility] Comment on above: Performed By: #### L IPD2 #### [facility] [address] [place] [address] Cholesterol [Mass/Vol] 162 mg/dL <200 [place], [place] Cholesterol in HDL [Mass/Vol] 40 mg/dL 40 - 60 mg/dL [place] Cholesterol in LDL [Mass/Vol] 98 mg/dL <100 [place], [place] Cholesterol.total/C holesterol in HDL [Mass ratio] 4 {ratio} [place], [place] Comment on above: Ref Range: < 3 Low Risk for CHD 3-6 Mod Risk for CHD > 6 High Risk for CHD Triglyceride [Mass/Vol] 119 mg/dL <150 [place], [place] Test Performed by [facility], [address] , [address] HCG,Urine Qualon 02-25-2019 Beta HCG ( test) Ql (U) Negative Normal Negative [facility] Comment on above: Result Comment: Preg jyotsna is the most common reason for HCG in urine, although choriocarcinoma, hydatidiform mole, and certain nontropho- blastic malignancies also result in detectable urinary HCG levels. Sensitivity = 20mIU/mL. Performed By: #### H CGUR #### Formerly [facility] [address] [place] [address] , Urineon 9 Beta HCG ( test) Ql (U) Negative Negative NA [place], [place] Comment on above: is the mos t common reason for HCG in urine, although choriocarcinoma, hydatidiform mole, and certain nontropho- blastic malignancies also result in detectable urinary HCG levels. Sensitivity = 20mIU/mL. Test Performed by [facility], [address] , [address] HCG,Urine Qualon 11-26-2018 Beta HCG ( test) Ql (U) Negative Normal Negative [facility] Comment on above: Result Comment: Preg jyotsna is the most common reason for HCG in urine, although choriocarcinoma, hydatidiform mole, and certain nontropho- blastic malignancies also result in detectable urinary HCG levels. Sensitivity = 20mIU/mL. Performed By: #### H UR #### Former[facility] [address] [place] [address] Vital Signs Date Time Vital Sign Value Performing Clinician Macie villaseñor 02-12-2025 08:03-0400 Body mass index (BMI) [Ratio] 29.53 kg/m2 Cherie Isabel MD Work Phone: [facility] 02-12-2025 08:03-0400 Body weight 76.2 kg Cherie Isabel MD Work Phone: [facility] 02-12-2025 08:03-0400 Diastolic blood pressure 84 mm[Hg] Cherie Isabel MD Work Phone: [facility] 02-12-2025 08:03-0400 Systolic blood pressure 124 mm[Hg] Cherie Isabel MD Work Phone: [facility] 01-14-2025 15:52-0400 Body mass index (BMI) [Ratio] 28.47 kg/m2 Kodi Haedin PROM BURN OFF OPERATOR.[employer]URN[employer] Work Phone: [facility] 01-14-2025 15:52-0400 Body weight 73.48 kg Kodi Haury PROM BURN OFF OPERATOR.[employer]ER FURNITURE Work Phone: [facility] 01-14-2025 15:52-0400 Diastolic blood pressure 68 mm[Hg] Kodi Haury PROM BURN OFF OPERATOR.[employer]ER FURNITURE Work Phone: [facility] 01-14-2025 15:52-0400 Systolic blood pressure 110 mm[Hg] Kodi Haury PROM BURN OFF OPERATOR.[employer]ER FURNITURE Work Phone: [facility] 12-14-2024 13:11-0400 Body mass index (BMI) [Ratio] 28.44 kg/m2 Jihan Enriquez PROM BURN OFF OPERATOR.CNM Work Phone: [facility] 12-14-2024 13:11-0400 Body weight 73.39 kg Jihan Enriquez PROM BURN OFF OPERATOR.CNM Work Phone: [facility] 12-14-2024 13:11-0400 Diastolic blood pressure 68 mm[Hg] Jihan Enriquez PROM BURN OFF OPERATOR.CNM Work Phone: [facility] 12-14-2024 13:11-0400 Systolic blood pressure 124 mm[Hg] Jihan Enriquez PROM BURN OFF OPERATOR.CNM Work Phone: [facility] 03-20-2024 13:11-0400 Body height 160.7 cm Uvaldo Milton DO Work Phone: [facility] 03-20-2024 13:11-0400 Body mass index (BMI) [Ratio] 26.99 kg/m2 Uvaldo Milton DO Work Phone: [facility] 03-20-2024 13:11-0400 Body weight 69.67 kg Uvaldo Milton DO Work Phone: [facility] 03-20-2024 13:11-0400 Diastolic blood pressure 78 mm[Hg] Uvaldo Milton DO Work Phone: [facility] 03-20-2024 13:11-0400 Heart rate 62 /min Uvaldo Milton DO Work Phone: [facility] 03-20-2024 13:11-0400 Respiratory rate 12 /min Uvaldo Milton DO Work Phone: [facility] 03-20-2024 13:11-0400 SaO2% (BldA) [Mass fraction] 100 % Uvaldo Milton DO Work Phone: [facility] 03-20-2024 13:11-0400 Systolic blood pressure 110 mm[Hg] Uvaldo Milton DO Work Phone: [facility] 01-28-2024 11:33-0400 Body height 160 cm Cherie Isabel MD Work Phone: [facility] 01-28-2024 11:33-0400 Body mass index (BMI) [Ratio] 27.46 kg/m2 Cherie Isabel MD Work Phone: [facility] 01-28-2024 11:33-0400 Body weight 70.31 kg Cherie Isabel MD Work Phone: [facility] 01-28-2024 11:33-0400 Diastolic blood pressure 68 mm[Hg] Cherie Isabel MD Work Phone: [facility] 01-28-2024 11:33-0400 Systolic blood pressure 112 mm[Hg] Cherie Isabel MD Work Phone: [facility] 11-21-2022 11:26-0400 Body height 160 cm Cherie Isabel MD Work Phone: [facility] 11-21-2022 11:26-0400 Body weight 68.04 kg Cherie Isabel MD Work Phone: [facility] 11-21-2022 11:26-0400 Diastolic blood pressure 68 mm[Hg] Cherie Isabel MD Work Phone: [facility] 11-21-2022 11:26-0400 Systolic blood pressure 110 mm[Hg] Cherie Isabel MD Work Phone: [facility] 03-16-2022 12:22-0400 Body height 160.5 cm Uvaldo Milton DO Work Phone: [facility] 03-16-2022 12:22-0400 Body temperature 97 [degF] Uvaldo Milton DO Work Phone: [facility] 03-16-2022 12:22-0400 Body weight 66.22 kg Uvaldo Milton DO Work Phone: [facility] 03-16-2022 12:22-0400 Diastolic blood pressure 70 mm[Hg] Uvaldo Milton DO Work Phone: [facility] 03-16-2022 12:22-0400 Heart rate 64 /min Uvaldo Milton DO Work Phone: [facility] 03-16-2022 12:22-0400 Respiratory rate 16 /min Uvaldo Milton DO Work Phone: [facility] 03-16-2022 12: Systolic blood pressure 110 mm[Hg] Uvaldo Milton DO Work Phone: [facility] Encounters Encounter Date Encounter Type Care Provider Facility Start: 04-12-2025 End: 04-12-2025 ambulatory UVALDO L MILTON Facility:[facility] Start: 04-06-2025 End: 04-06-2025 ambulatory UVALDO L MILTON Facility:[facility] Start: 03-23-2025 End: 03-23-2025 ambulatory UVALDO L MILTON Facility:[facility] Start: 03-10-2025 End: 03-10-2025 ambulatory JIHAN OTILIAELIN Facility:[facility] Start: 02-26-2025 End: 02-26-2025 Telephone encounter Kelsi Diaz RN [facility] Maternal Medicine Comment on above: Appointment Start: 02-18-2025 End: 02-18-2025 Telephone encounter Cherie Isabel MD Work Phone: OB/Gynecology Comment on above: Appointment ([facility]) Start: 02-12-2025 End: 02-12-2025 Patient encounter procedure Cherie Isabel MD Work Phone: OB/Gynecology Comment on above: Encounter for superv ision of high risk multigravida of advanced maternal age, antepartum (HCC) (Primary Dx); History of ; History of section; Hypertrophic cardiomyopathy (HCC); Family history of hypertrophic cardiomyopathy; 16 weeks gestation of (HCC) Start: 02-12-2025 End: 02-12-2025 ambulatory CHERIE ISABEL Facility:[facility] Start: 01-19-2025 End: 01-19-2025 ambulatory UVALDO L MILTON Facility:[facility] Start: 01-18-2025 End: 01-18-2025 Telephone encounter Silvia [facility] Maternal Medicine Start: 01-15-2025 End: 01-15-2025 Telephone encounter Kodi Garcia APRN.CNP Work Phone: OB/Gynecology Start: 01-14-2025 End: 01-14-2025 [facility] Facility:[facility] Start: 01-14-2025 End: 01-14-2025 Patient encounter procedure Whi Tech 1 [employer] [facility] Maternal Medicine Comment on above: Encounter for antena myla screening for malformation using ultrasound (HCC) (Primary Dx); 12 weeks gestation of (HCC) Encounter for superv ision of high risk multigravida of advanced maternal age, antepartum (HCC) (Primary Dx); 12 weeks gestation of (HCC); History of ; History of section; Hypertrophic cardiomyopathy (HCC); Family history of hypertrophic cardiomyopathy Start: 01-14-2025 End: 01-14-2025 [facility] Facility:[facility] Start: 12-15-2024 End: 02-14-2025 Follow-up encounter Jazmin Avina APRN.CNP Work Phone: OB/Gynecology Start: 12-14-2024 End: 12-14-2024 ambulatory UVALDO MILTON Facility:[facility] Start: 12-14-2024 End: 12-14-2024 Patient encounter procedure Jihan Penaelin ZHANG Work Phone: OB/Gynecology Comment on above: with uncer tain dates, antepartum (HCC) (Primary Dx); Encounter for supervision of high risk multigravida of advanced maternal age, antepartum (HCC); Screen for STD (sexually transmitted disease); Missed menses; Family history of hypertrophic cardiomyopathy; History of ; Herpes simplex virus (HSV) infection; Herpes Start: 11-23-2024 End: 11-25-2024 Telephone encounter Nurse Tank Maker Wood Rica Cota Work Phone: Obstetrics/Gynecology Start: 07-13-2024 End: 07-13-2024 Orders Only Nicole Barcenas MD Work Phone: Cardiology Comment on above: Family history of hy pertrophic cardiomyopathy (Primary Dx) Start: 04-02-2024 End: 04-02-2024 ambulatory Uvaldo Milton DO Work Phone: Family Medicine [place] Comment on above: [facility] waiting for your reply Start: 03-20-2024 End: 03-20-2024 Patient encounter procedure Uvaldo Milton DO Work Phone: Family Medicine [place] Comment on above: Well adult exam (Zaida ghassan Dx) Start: 03-20-2024 End: 03-20-2024 Patient encounter status Uvaldo Milton DO Work Phone: [facility] Work Phone: Start: 02-06-2024 End: 02-06-2024 ambulatory Cherie Isabel MD Work Phone: OB/Gynecology Comment on above: Pap result Start: 01-28-2024 End: 01-28-2024 Patient encounter procedure Cherie Isabel MD Work Phone: OB/Gynecology Comment on above: Encounter for gyneco logical examination (general) (routine) without abnormal findings (Primary Dx); Screening for cervical cancer; Special screening examination for human papillomavirus (HPV); Herpes; Encounter for IUD removal Start: 01-28-2024 End: 01-28-2024 Patient encounter status Cherie Isabel MD Work Phone: [facility] Start: 01-03-2024 Telephone encounter Cherie Isabel MD Work Phone: OB/Gynecology Comment on above: Patient Question Start: 04-30-2023 ambulatory UVALDO MILTON Facil ity:[facility] Start: 04-30-2023 End: 04-30-2023 Subsequent hospital visit by physician Screen/Diagnostic Mammo [facility] Work Phone: Mammography Start: 03-20-2023 Telephone encounter Uvaldo rock DO Work Phone: Family Medicine [place] Comment on above: Results Start: 03-05-2023 Telephone encounter Marine Mora MD Work Phone: [facility]ious [facility] Start: 11-21-2022 End: 11-21-2022 Patient encounter procedure Cherie Isabel MD Work Phone: OB/Gynecology Comment on above: Encounter for gyneco logical examination (general) (routine) without abnormal findings (Primary Dx); Encounter for IUD removal; Breast pain, left Start: 11-21-2022 End: 11-21-2022 Patient encounter status Cherie Isabel MD Work Phone: OB/Gynecology Start: 09-04-2022 End: 09-04-2022 ambulatory [facility] Work Phone: Cardiology Comment on above: Event (Zio patch) Start: 08-27-2022 Refill Cherie Isabel MD Work Phone: OB/Gynecology Comment on above: Refill Request Start: 08-02-2022 Orders Only Nicole parra MD Work Phone: Cardiology Comment on above: Family history of hy pertrophic cardiomyopathy (Primary Dx); Monoallelic mutation of MYBPC3 gene Start: 03-17-2022 Patient encounter status Micheal Milton DO Work Phone: [facility] Work Phone: Start: 03-16-2022 End: 03-16-2022 Patient encounter procedure Uvaldo Milton DO Work Phone: [facility] [place] Comment on above: Well adult exam ([facility] ghassan Dx); Need for influenza vaccination; Nasal polyps; Other hyperlipidemia Start: 03-16-2022 End: 03-16-2022 Patient encounter status Uvaldo Milton DO Work Phone: [facility] [place] Start: 11-28-2021 Refill Cherie Isabel MD Work Phone: OB/Gynecology Comment on above: Refill Request Start: 05-29-2019 End: 05-29-2019 Subsequent hospital visit by physician Uvaldo MONTEZ Work Phone: [facility] Laboratory Start: 04-02-2019 End: 04-02-2019 Subsequent hospital visit by physician Uvaldo Milton Work Phone: [facility] Start: 02-25-2019 End: 02-25-2019 Subsequent hospital visit by physician Joann Arora Work Phone: [facility] Laboratory Procedures Date Procedure Procedure Detail Performing Clinician Start: 01-14-2025 Antibody screen UVALDO MILTON Comment on above: Order Comment: Speci men Type: BLOOD SPECIMEN Ordering Facility: [facility] Address: [address] [place] [address] Performed By: #### T SPN, [id number] #### [facility] CLIA [id number] [facility] [address]K [address] OF [place] #### WKD #### [facility]ERS[facility] BLOOD [facility] CLIA [id number] [address] [place] [address] OF [place] Start: 01-14-2025 Us preg uterus after 1st trimest 1/1st gestation Jihan Enriquez PROM BURN OFF OPERATOR.CNM Work Phone: Start: 12-14-2024 UA DIP,URINE HCG (POC) Jihan Enriquez PROM BURN OFF OPERATOR.CNM Work Phone: Start: 12-14-2024 uterus limited 1/> fetuses Jihannoam Enriquez PROM BURN OFF OPERATOR.CN Work Phone: Start: 04-30-2023 Digital breast tomosynthesis bilateral Cherie Isabel MD Work Phone: Start: 03-16-2022 INFLUENZA VACCINE QUADRIVALENT 6 MO - 64 YRS IM Uvaldo Milton DO Work Phone: Start: 03-10-2021 Adult depression screening assessment Cherie Isabel MD Work Phone: Start: 05-29-2019 Assay of ferritin Micheal MONTEZ Work Phone: Start: 04-02-2019 Basic metabolic pane l calcium total Unknown Provider Result Start: 04-02-2019 Lipid panel Uvaldo rock Work Phone: Start: 02-25-2019 Urine test visual color cmprsn meths Joann Arora Work Phone: Start: 02-19-2017 End: 11-06-2017 H/O: section History of section Cherie Isabel MD Work Phone: H/O: section History of section Kodi Garcia PERLAМаринаCLEANER FURNITURE Work Phone: H/O: section History of section Cherie Isabel MD Work Phone: Plan of Treatment Date Care Activity Detail Author Start: 2039 Shingles (RZV) Vaccine (1 of 2) Shingles (RZV) Vaccine (1 of 2) [facility] Start: 01-27-2029 Screening for malignant neoplasm of cervix Cervical Cancer Screening [facility] Start: 08-24-2027 Urine microalbumin profile [facility] Start: 05-29-2025 RSV Vaccine (1 - Risk 1-dose series) RSV Vaccine (1 - Risk 1-dose series) [facility] Start: 05-11-2025 End: 05-11-2025 Patient encounter procedure 05/11/2025 1:00 PM EST Initial Office Visit Maternal Medicine [address] [place] [address] Rachael Fuchs MD [address] [place], [place] [id number] MFM/cardio OB Maternal Medicine Comment on above: MFM/cardio OB Start: 04-06-2025 End: 04-06-2025 Patient encounter procedure 04/06/2025 11:40 AM EDT Routine Office Visit OB/Gynecology [address] [place], [place] [address] Cherie Cain MD [address] [place] [address] OB OB/Gynecology Comment on above: OB Start: 03-23-2025 End: 03-23-2025 Patient encounter procedure Family Medicine [place] Comment on above: physical Start: 03-20-2025 Covid-19 Vaccine () Covid-19 Vaccine () [facility] Comment on above: Postponed from 02/16/2024 (Declined at t his time) Start: 03-11-2025 End: 03-11-2025 Patient encounter procedure 03/11/2025 10:50 AM EDT Routine Office Visit OB/Gynecology [address] [place] [address] Cherie Cain MD [address] [place] [address] OB OB/Gynecology Comment on above: OB Start: 03-10-2025 End: 03-10-2025 Patient encounter procedure 03/10/2025 10:40 AM EDT Routine Office Visit OB/Gynecology [address] [place] [address] Cherie Cain MD [address] [place] [address] OB OB/Gynecology Comment on above: OB Start: 03-10-2025 End: 03-10-2025 Patient encounter procedure 03/10/2025 9:30 AM EDT Routine Office Visit Maternal Medicine [address] [place] [address] Anatomy Maternal Medicine Comment on above: Anatomy Start: 03-08-2025 End: 03-08-2025 Patient encounter procedure CARD [facility] Comment on above: COB Start: 03-08-2025 End: 03-08-2025 Patient encounter procedure [facility] Comment on above: : Family history of hypertrophic cardiom yopathy [Z82.49] Start: 03-01-2025 End: 03-01-2025 Patient encounter procedure 03/01/2025 2:00 PM EDT Office Visit OB/Gynecology [address] [place] [address] Cherie Cain MD [address] [place] [address] Annual / R/S FROM 01/28 OB/Gynecology Comment on above: Annual / R/S FROM 01/28 Start: 02-15-2025 Influenza vaccination [facility] Start: 02-12-2025 End: 02-12-2025 Patient encounter procedure 02/12/2025 11:40 AM EDT Routine Office Visit OB/Gynecology [address] [place] [address] Cherie Cain MD [address] [place] [address] OB OB/Gynecology Comment on above: OB Start: 01-28-2025 End: 01-28-2025 Patient encounter procedure 01/28/2025 1:20 PM EDT Office Visit OB/Gynecology [address] [place] [address] Cherie Cian MD [address] [place] [address] Annual OB/Gynecology Comment on above: Annual Start: 01-19-2025 End: 01-19-2025 ambulatory 01/19/2025 2:00 PM EDT Results Only [place] [facility] Laboratory [address] [place] [address] [place] [facility] Start: 01-15-2025 End: 01-15-2026 OBSTETRIC ULTRASOUND WHI OBSTETRIC ULTRASOUND WHI Anc Imaging Routine Multigravida of advanced maternal age in second trimester (HCC) Expected: 01/15/2025, Expires: 01/15/2026 [facility] Work Phone: Comment on above: Expected: 01/15/2025, Expires: Start: 01-14-2025 End: 01-14-2025 Patient encounter procedure 01/14/2025 3:45 PM EDT Routine Office Visit OB/Gynecology [address] [place] [address] Kodi Garcia APRN.CLEANER FURNITURE [address] [place] [address] Nuchal/OB OB/Gynecology Comment on above: Nuchal/OB Start: 01-14-2025 End: 04-15-2025 Comprehensive metabolic 2000 panel - Serum or Plasma [facility] Work Phone: Comment on above: Expected: 01/14/2025, Expires: Start: 01-14-2025 End: 04-15-2025 Protein/Creatinine [Mass Ratio] in Urine 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)]; Family history of hypertrophic cardiomyopathy Start: 01-01-2025 End: 01-01-2025 Patient encounter procedure 01/01/2025 2:30 PM EDT Appointment Cardiology [address] [place] [address] 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)]; Family history of hypertrophic cardiomyopathy Cardiology Comment on above: 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)]; Family history of hypertrophic cardiomyopathy Start: 01-01-2025 End: 01-01-2025 ambulatory 01/01/2025 2:00 PM EDT Results Only Cardiology [address] [place] [address] 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)]; Family history of hypertrophic cardiomyopathy Cardiology Comment on above: 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 Comment on above: Expected: 12/14/2024, Expires: Start: 12-14-2024 End: 03-15-2025 Hemoglobin A1c in Blood HEMOGLOBIN A1C Lab Routine with uncertain dates, antepartum (HCC) Expected: 12/14/2024, Expires: 03/15/[address] [facility] Comment on above: Expected: 12/14/2024, Expires: Start: 12-14-2024 End: 03-15-2025 Hepatitis B virus surface Ag [Presence] in Serum HEPATITIS B SURFACE ANTIGEN Lab Routine with uncertain dates, antepartum (HCC) Expected: 12/14/2024, Expires: 03/15/[address] [facility] Comment on above: Expected: 12/14/2024, Expires: Start: 12-14-2024 End: 03-15-2025 Hepatitis C virus Ab [Presence] in Serum HEPATITIS C ANTIBODY IA WITH CONFIRMATION Lab Routine with uncertain dates, antepartum (HCC) Expected: 12/14/2024, Expires: 03/15/[address] [facility] Comment on above: Expected: 12/14/2024, Expires: Start: 12-14-2024 End: 03-15-2025 HIV 1+2 Ab [Presence] in Serum or Plasma by Immunoassay HIV 1/2 COMBO WITH REFLEX TO DIFFERENTIATION Lab Routine with uncertain dates, antepartum (HCC) Expected: 12/14/2024, Expires: 03/15/[address] [facility] Comment on above: Expected: 12/14/2024, Expires: Start: 12-14-2024 Influenza vaccination Influenza Vaccine (#[facility] Comment on above: Postponed from 02/16/2024 (Declined at t his time) Start: 12-14-2024 End: 12-14-2025 OBSTETRIC ULTRASOUND WHI OBSTETRIC ULTRASOUND WHI Anc Imaging Routine with uncertain dates, antepartum (HCC) Expected: 12/14/2024, Expires: 12/14/[address] [facility] Comment on above: Expected: 12/14/2024, Expires: Start: 12-14-2024 End: 03-15-2025 RUBELLA IGG ANTIBODY RUBELLA IGG ANTIBODY Lab Routine with uncertain dates, antepartum (HCC) Expected: 12/14/2024, Expires: 03/15/[address] [facility] Comment on above: Expected: 12/14/2024, Expires: Start: 12-14-2024 End: 03-15-2025 SYPHILIS TREPONEMAL W/REFLEX SYPHILIS TREPONEMAL W/REFLEX Lab Routine with uncertain dates, antepartum (HCC) Expected: 12/14/2024, Expires: 03/15/[address] [facility] Comment on above: Expected: 12/14/2024, Expires: Start: 12-14-2024 End: 03-15-2025 TYPE + SCREEN TYPE + SCREEN Blood Bank Routine with uncertain dates, antepartum (HCC) Expected: 12/14/2024, Expires: 03/15/[address] [facility] Comment on above: Expected: 12/14/2024, Expires: Start: 12-14-2024 End: 12-14-2024 Patient encounter procedure 12/14/2024 1:00 PM EDT Initial Office Visit OB/Gynecology [address] [place] [address] Jihan Enriquez APRN.CN [address] [place] [address] NEW OB OB/Gynecology Comment on above: NEW OB Start: 11-17-2024 HPV TESTING HPV TESTING [facility] Start: 11-17-2024 PAP TESTING PAP TESTING [facility] Start: 11-17-2024 Screening for malignant neoplasm of cervix Cervical Cancer Screening [facility] Start: 03-20-2024 End: 03-20-2024 Patient encounter procedure 03/20/2024 1:00 PM EDT Office Visit [facility] [place] [address] [place] [address] Uvaldo Milton DO [address] [place] [address] physical [facility] Medicine [place] Comment on above: physical Start: 03-19-2024 Covid-19 Vaccine (#1) Covid-19 Vaccine (#1) [facility] Comment on above: Postponed from 1989 (Declined at t his time) Start: 03-19-2024 Covid-19 Vaccine ( season) Covid-19 Vaccine ( season) [facility] Comment on above: Postponed from 02/15/2023 (Declined at t his time) Start: 02-16-2024 Influenza vaccination [facility] Start: 01-28-2024 End: 01-28-2024 Patient encounter procedure 01/28/2024 11:20 AM EDT Office Visit OB/Gynecology [address] [place] [address] Cherie Cain MD [address] [place] [address] Annual OB/Gynecology Comment on above: Annual Start: 06-20-2023 End: 08-20-2023 Comprehensive metabolic 2000 panel - Serum or Plasma COMP METABOLIC PANEL Lab Routine Other hyperlipidemia Expected: 06/20/2023, Expires: 08/20/2023 [facility] Work Phone: Comment on above: Expected: 06/20/2023, Expires: 4 Start: 06-20-2023 End: 08-20-2023 Lipid 1996 panel - Serum or Plasma LIPID PANEL BASIC Lab Routine Other hyperlipidemia Expected: 06/20/2023, Expires: 08/20/2023 [facility] Work Phone: Comment on above: Expected: 06/20/2023, Expires: 4 Start: 06-17-2023 Behavioral Health Screening Behavioral Health Screening [facility] Start: 03-17-2023 Influenza vaccination Influenza Vaccine (#1) [facility] Start: 03-16-2023 COVID-19 VACCINE (#1) COVID-19 VACCINE (#1) [facility] Comment on above: Postponed from 1989 (Declined at t his time) Start: 06-17-2022 DEPRESSION ASSESSMENT DEPRESSION ASSESSMENT [facility] Start: 03-10-2022 Adult depression screening assessment DEPRESSION SCREENING [facility] Start: 02-15-2019 Influenza vaccination Flu vaccine (#1) [facility] [place] Start: 01-11-2016 HPV Vaccine (1 - 3-dose SCDM series) HPV Vaccine (1 - 3-dose SCDM series) [facility] Start: 01-11-2016 HPV Vaccine (optional start 27-45 years) HPV Vaccine (optional start 27-45 years) [facility] Start: 2010 Screening for malignant neoplasm of cervix Pap Smear [facility] Start: 01-11-2008 Hepatitis B Vaccine (1 of 3 - 19+ 3-dose series) Hepatitis B Vaccine (1 of 3 - 19+ 3-dose series) [facility] Start: 2007 Anxiety Screening Anxiety Screening [facility] Start: 2007 Depression Screening Depression Screening [facility] Start: 2007 HEPATITIS C SCREENING HEPATITIS C SCREENING [facility] Start: 2007 Hepatitis C screening [facility] Start: 2007 Tetanus + diphtheria + acellular pertussis vaccine (product) Tdap Booster [facility] Start: 01-11-2004 HIV screening HIV Test [facility] Start: 1994 COVID-19 VACCINE (#1) COVID-19 VACCINE (#1) [facility] Start: 1989 HEPATITIS B (1 of 3 - 3-dose series) HEPATITIS B (1 of 3 - 3-dose series) [facility] Start: 1989 Hepatitis B Vaccine (1 of 3 - 3-dose series) Hepatitis B Vaccine (1 of 3 - 3-dose series) [facility] Bacteria identified in Urine by Culture BACTERIAL CULTURE, URINE Microbiology Routine with uncertain dates, antepartum (HCC) 12/14/2024 2:09 PM EDT [facility] Chlamydia trachomatis+Neisseria gonorrhoeae DNA [Presence] in Unspecified specimen by GERMAIN with probe detection GONORRHEA/CHLAMYDIA NAAT Lab Routine with uncertain dates, antepartum (HCC) 12/14/2024 2:09 PM EDT [facility] End: 08-02-2023 ECG COMPLETE ECG COMPLETE ECG Routine Family history of hypertrophic cardiomyopathy Monoallelic mutation of MYBPC3 gene 1 Occurrences starting 08/02/2022 until 08/02/2023 [facility] Work Phone: Comment on above: 1 Occurrences starting 08/02/2022 until 08/02/2023 End: 07-13-2025 ECG COMPLETE ECG COMPLETE ECG Routine Family history of hypertrophic cardiomyopathy 1 Occurrences starting 07/13/2024 until 07/13/2025 [facility] Work Phone: Comment on above: 1 Occurrences starting 07/13/2024 until 07/13/2025 End: 08-02-2023 Echocardiography ECHO Cardiology Routine Family history of hypertrophic cardiomyopathy Monoallelic mutation of MYBPC3 gene 1 Occurrences starting 08/02/2022 until 08/02/2023 [facility] Work Phone: Comment on above: 1 Occurrences starting 08/02/2022 until 08/02/2023 End: 07-13-2025 Echocardiography ECHO Cardiology Routine Family history of hypertrophic cardiomyopathy 1 Occurrences starting 07/13/2024 until 07/13/[address] [facility] Comment on above: 1 Occurrences starting 07/13/2024 until 07/13/2025 End: 12-21-2023 [facility] Radiology Routine Breast pain, left 1 Occurrences starting 11/21/2022 until 12/21/2023 [facility] Work Phone: Comment on above: 1 Occurrences starting 11/21/2022 until 12/21/2023 PAP TEST PAP TEST Lab Rou alyssia Screening for cervical cancer Special screening examination for human papillomavirus (HPV) 01/28/2024 12:00 PM EDT [facility] Removal intrauterine device iud REMOVE INTRAUTERINE DEVICE Procedures Routine Encounter for IUD removal Ordered: 11/21/2022 [facility] Work Phone: Comment on above: Ordered: 11/21/2022 Removal intrauterine device iud REMOVE INTRAUTERINE DEVICE Procedures Routine Encounter for IUD removal Ordered: 01/07/2024 [facility] Work Phone: Comment on above: Ordered: 01/07/2024 Removal intrauterine device iud REMOVE INTRAUTERINE DEVICE Procedures Routine Encounter for IUD removal Ordered: 01/28/2024 [facility] Work Phone: Comment on above: Ordered: 01/28/2024 End: 05-29-2019 Thyroid Peroxidase Antibody Thyroid Peroxidase Antibody Lab Routine Once for 1 Occurrences starting 05/29/2019 until 05/29/2019 [facility] Work Phone: Comment on above: Once for 1 Occurrences starting 05/29/20 19 until 05/29/2019 Thyroid Peroxidase Antibody Thyroid Peroxidase Antibody Lab Routine 05/29/2019 2:28 PM EST [facility] Work Phone: TRICHOMONAS VAGINALI S NAAT TRICHOMONAS VAGINALIS NAAT Lab Routine Screen for STD (sexually transmitted disease) 12/14/2024 2:09 PM EDT [facility] End: 12-21-2023 US BREAST LTD LEFT US BREAST LTD LEFT Radiology Routine Breast pain, left 1 Occurrences starting 11/21/2022 until 12/21/2023 [facility] Work Phone: Comment on above: 1 Occurrences starting 11/21/2022 until 12/21/2023 [facility] Immunizations Immunization Date Immunization Notes Care Provider Albaro perry 03-19-2023 influenza, injectabl e, quadrivalent, contains preservative Uvaldo Milton DO Work Phone: [facility] Work Phone: 03-19-2023 influenza virus vacc ine, unspecified formulation Cherie Isabel MD Work Phone: [facility] 03-16-2022 influenza, injectabl e, quadrivalent, contains preservative Uvaldo Milton DO Work Phone: [facility] Work Phone: 03-14-2021 influenza, injectabl e, quadrivalent, contains preservative Cherie Isabel MD Work Phone: [facility] Work Phone: 04-15-2018 influenza, injectabl e, quadrivalent, contains preservative Cherie Isabel MD Work Phone: [facility] Work Phone: 08-23-2017 tetanus toxoid, redu alexandr diphtheria toxoid, and acellular pertussis vaccine, adsorbed Cherie Isabel MD Work Phone: [facility] 07-19-2017 influenza, injectabl e, quadrivalent, contains preservative Cherie Isabel MD Work Phone: [facility] 08-26-2012 tetanus toxoid, redu alexandr diphtheria toxoid, and acellular pertussis vaccine, adsorbed Cherie Isabel MD Work Phone: [facility] 01-22-2008 meningococcal oligosaccharide (groups A, C, Y and W-135) diphtheria toxoid conjugate vaccine (MCV4O) Cherie Isabel MD Work Phone: [facility] 01-22-2008 meningococcal polysaccharide (groups A, C, Y and W-135) diphtheria toxoid conjugate vaccine (MCV4P) Cherie Isabel MD Work Phone: [facility] Work Phone: 01-22-2008 tetanus toxoid, redu alexandr diphtheria toxoid, and acellular pertussis vaccine, adsorbed Cherie Isabel MD Work Phone: [facility] 01-14-2001 measles, mumps and rubella virus vaccine Cherie Isabel MD Work Phone: [facility] 07-04-1998 hepatitis B immune globulin Cherie Isabel MD Work Phone: [facility] 12-15-1997 hepatitis B immune globulin Cherie Isabel MD Work Phone: [facility] 10-25-1997 hepatitis B immune globulin Cherie Isabel MD Work Phone: [facility] 03-14-1994 diphtheria, tetanus toxoids and acellular pertussis vaccine Cherie Isabel MD Work Phone: [facility] 03-14-1994 poliovirus vaccine, inactivated Cherie Isabel MD Work Phone: [facility] 12-12-1990 diphtheria, tetanus toxoids and acellular pertussis vaccine Cherie Isabel MD Work Phone: [facility] 12-12-1990 poliovirus vaccine, inactivated Cherie Isabel MD Work Phone: [facility] 07-09-1990 haemophilus influenz ae type b vaccine, conjugate unspecified formulation Cherie Isabel MD Work Phone: [facility] 07-09-1990 measles, mumps and rubella virus vaccine Cherie Isabel MD Work Phone: [facility] 1989 diphtheria, tetanus toxoids and acellular pertussis vaccine Cherie Isabel MD Work Phone: [facility] 1989 diphtheria, tetanus toxoids and acellular pertussis vaccine Cherie Isabel MD Work Phone: [facility] 1989 poliovirus vaccine, inactivated Cherie Isabel MD Work Phone: [facility] 1989 diphtheria, tetanus toxoids and acellular pertussis vaccine Cherie Isabel MD Work Phone: [facility] 1989 poliovirus vaccine, inactivated Cherie Isabel MD Work Phone: [facility] Payers Date Payer Category Payer Unknown [id number] 2022 Unknown [id number] 2019 Private Health Insurance [facility] [employer] [id number] 2019-Present [phone] [address] [place] [address] O [id number] 2019 Private Health Insurance [id number] Social History Date Type Detail Facility [facility] Start: 1990 Sex [facility] At [facility] [place] Start: 03-16-2022 Tobacco smoking status NHIS Never smoked tobacco [facility] Start: 11-20-2021 End: 03-16-2022 Alcohol intake Current non-drinker of alcohol (finding) [facility] Start: 03-10-2021 End: 03-13-2022 History SDOH Alcohol Frequency [address] [facility] Start: 03-10-2021 End: 03-13-2022 History SDOH Alcohol Std Drinks [address] [facility] Start: 03-10-2021 End: 09-27-2022 History SDOH Social Connections Phone [address] [facility] Start: 03-10-2021 End: 03-13-2022 History SDOH Social Connections Get Together [address] [facility] Start: 03-10-2021 End: 03-13-2022 History SDOH Social Connections Meetings [address] [facility] Start: 03-10-2021 End: 03-13-2022 History SDOH Social Connections Living [address] [facility] Start: 03-10-2021 History SDOH Physical Activity MPS [address] [facility] Start: 03-02-2020 Education [address] [facility] Start: 11-10-2021 End: 03-16-2022 Exposure to SARS-CoV-2 (event) Not sure [facility] Start: 03-16-2022 Tobacco use and exposure Smokeless tobacco non-user [facility] Work Phone: Start: 09-04-2022 End: 03-20-2024 Alcohol intake Current drinker of alcohol (finding) [facility] Start: 09-04-2022 Alcohol Comment rarely [facility] Tobacco smoking stat [facility] Tobacco smoking consumption unknown [facility] Work Phone: Start: 11-21-2022 End: 03-14-2023 Gender identity Not on file [facility] Start: 11-21-2022 End: 03-14-2023 History of Social function [facility] Has the [employer], or [employer] threatened to shut off services in your home in past 12Mo No [facility] Are you now , , , , never or living with a partner? Living with partner [facility] How often to you hav e a drink containing alcohol? Monthly or less [facility] How many standard drinks containing alcohol do you have on a typical day? 1 or [address] [facility] How often do you hav e 6 or more drinks on 1 occasion? Never [facility] Start: 05-18-2012 How hard is it for you to pay for the very basics like food, housing, medical care, and heating Not hard at all [facility] Do you feel stress - tense, restless, nervous, or anxious, or unable to sleep at night because your mind is troubled all the time - these days [OSQ] Not at all [facility] (I/We) worried delroy er (my/our) food would run out before (I/we) got money to buy more. Never true [facility] Are you now , , , , never or living with a partner? [facility] Start: 12-11-2024 End: 01-14-2025 Alcoholic beverage intake Ex-drinker (finding) [facility] Start: 10-31-[address] [facility] Start: 1990 Sex assigned at Female [facility] Start: 12-11-2024 Gender identity Identifies as female gender (finding) [facility] Start: 12-11-2024 Sexual orientation Heterosexual (finding) [facility] Goals Date Patient Goal Desired Activity /State Personal health goal Functional Status Date Assessment Result Facility 09-27-2014 Are you deaf, or do you have serious difficulty hearing No 09/27/2014 10:51 AM Jessica Enriquez LPN No [facility] 09-27-2014 Are you blind, or do you have serious difficulty seeing, even when wearing glasses No 09/27/2014 10:51 AM Jessica Enriquez LPN [facility] 09-27-2014 Do you have serious difficulty walking or climbing stairs No 09/27/2014 10:51 AM Jesscia Enriquez LPN [facility] 09-27-2014 Do you have difficul ty dressing or bathing No 09/27/2014 10:51 AM Jessica Enriquez LPN [facility] 09-27-2014 Because of a physica l, mental, or emotional condition, do you have difficulty doing errands alone such as visiting a physician's office or shopping No 09/27/2014 10:51 AM Jessica Enriquez LPN [facility] Mental Status Date Assessment Result Facility 09-27-2014 Because of a physica l, mental, or emotional condition, do you have serious difficulty concentrating, remembering, or making decisions No 09/27/2014 10:51 AM Jessica Enriquez LPN No [facility] Clinical Notes 02-19-2017 to 03-23-2025 Telephone Encounter - Cherie Cain MD - 02/26/2025 3:05 PM EDTTelephone Encounter - Kelsi Diaz RN - 02/26/2025 2:42 PM EDTPatient InstructionsPatient InstructionsPatient Instructions Note Date & Type Note Facility 03-23-2025 Note HNO ID: [id number] Author: UVALDO MILTON, DO Service: ? Author Type: Physician Type: Progress Notes Filed: 03/23/2025 15:03 Note Text: CC: Radha Chung is a 35 year old female who presents to the office for physical HPI: Overall she is doing well She is now with her 3rd child, a daughter. She is struggling with some fatigue, being managed Admits needs to be more physically active with her PAST MEDICAL HISTORY Diagnosis Date Chlamydia Herpes simplex without mention of complication Hypertrophic cardiomyopathy (HCC) Postive for the gene Nasal polyps Obesity, Class I, BMI 30-34.9 04/16/2018 Other acne PAST SURGICAL HISTORY Procedure Laterality Date DELIVERY ONLY 2012 ECHO DOPPLER COMPLETE 02/2005 normal ECHO DOPPLER COMPLETE 02/2008 normal EXTRACTION ERUPTED TOOTH/EXR INJECTION zolar REM LESION FACE,EAR,EYE 2.1-3 CM 06/25/2016 lip SEPTOPLASTY Bilateral 04/08/2019 Dr. Davonte Chand, [facility] Social History: SOCIAL HISTORY[1] FAMILY HISTORY Problem Relation Age of Onset other (sudden cardiac ) Brother Hypertension Mother Blood Disease Mother anemia Cancer Mother 53 mucinous tumor on appendix Hypertension Father 59 HCM Cervical Cancer Maternal Grandmother 60 Cataract Maternal Grandmother Psychiatry Sister depression other (HCM) Sister other (HCM) Brother Aneurysm Paternal Aunt brain aneurysm Current Outpatient prescriptions: valACYclovir (VALTREX) 500 mg tablet TAKE 1 TABLET DAILY PNV24/iron cbn,gluc/FA/dss/dha (PRENATE ORAL) Take 1 capsule by mouth once daily. albuterol HFA (PROAIR HFA) 90 mcg/actuation inhaler Inhale 2 Puffs as instructed every 4 hours as needed. Allergies: ALLERGIES Allergen Reactions Penicillins Itching Morphine Itching ROS: See HPI PE: 03/23/25 1307 BP: 110/72 Pulse: 80 Resp: 16 Temp: 36.6 ?C (97.9 ?F) TempSrc: Left Tympanic Weight: 78.9 kg (174 lb) Height: 162 cm (5' 3.78) Gen: AANDO, NAD, non-toxic appearing, Pleasant, cooperative HEENT: NT/AC, PERRLA, EOMs intact b/l, nares clear and patent b/l, pharynx without erythema, exudate or lesions. Uvula midline. EACs without erythema or debris. TMs pearly bar with intact landmarks b/l. Neck: supple, No cervical LAD, no thyromegaly, no carotid bruits CV: RRR, normal S1 and S2, no murmurs, no gallops, no rubs, Pulses 2+ and symmetric in UE and LE b/l Lungs: normal respiratory effort, CTA b/l, no wheezing or rhonchi or rales Abd: soft, NT, ND, +BS, no hepatosplenomegaly MS: FROM all 4 extremities Neuro: CN II-XII intact b/l, strength 5/5 b/l UE and LE, DTRs 2/4 UE and LE, sensation intact. Skin: warm, dry, intact, No rashes or lesions on exposed skin. No edema legs ASSESSMENT/PLAN: 1. Well adult exam - ICD9: V70.0, ICD10: Z00.00 (primary diagnosis) - Counseled on healthy diet and regular exercise 2. 22 weeks gestation of (HCC) - ICD9: V22.2, ICD10: Z3A.22 Managed by OBGYN 3. Fatigue, unspecified type - ICD9: 780.79, ICD10: R53.83 Secondary to , managed by OBGYN Uvaldo Milton DO To ER if develops chest pain, shortness of breath, or severe worsening of symptoms. Discussed risks, benefits, alternatives, and potential side effects of medications. Patient expressed understanding and agreed with the plan. Uvaldo Milton DO [address] [place] [address] [1] Social History Tobacco Use Smoking status: Never Smokeless tobacco: Never Vaping Use Vaping status: Never Used Substance Use Topics Alcohol use: Not Currently Drug use: No [facility] 02-26-2025 Miscellaneous Notes Noted- thank you Radha called in and is declining COB and MFM care until Jun as her current insurance will not cover any of these appointments. She stated that she would be happy to be seen in June but not prior and she doesn't not want two high deductibles. Per her request all COB, MFM, and cardiology testing cancelled. Dr Isabel and Dr Brar updated via [employer] message. I verifed that she has my contact information to call back if she changes her mind and wishes to reschedule. documented in this encounter [facility] 02-26-2025 Telephone encounter Note Noted- thank you [facility] 02-26-2025 Telephone encounter Note Radha called in and is declining COB and MFM care until Jun as her current insurance will not cover any of these appointments. She stated that she would be happy to be seen in June but not prior and she doesn't not want two high deductibles. Per her request all COB, MFM, and cardiology testing cancelled. Dr Isabel and Dr Brar updated via [employer] message. I verifed that she has my contact information to call back if she changes her mind and wishes to reschedule. [facility] 02-18-2025 Telephone encounter Note Thank you. [facility] 02-18-2025 Miscellaneous Notes Thank you. I spoke with Radha and she is still waiting to hear back from her MMO rep. She placed another call today to her HR dept so they can help to expedite the response from MMO. Radha wishes to keep her appointments scheduled for COB here in [place] on 03/08/25 until her hears back from her insurance.At this time she is also asking to keep the appt scheduled for Nov with MFM at [place]. She will cancel this is she is able to come to [place] for COB. I rescheduled her cardiology appointment that was cancelled by the [place] office today. I answered all of her questions to the best of my ability. She has my direct contact information and will call me as soon as she hears back from MMO documented in this encounter [facility] 02-18-2025 Telephone encounter Note I spoke with Radha and she is still waiting to hear back from her MMO rep. She placed another call today to her HR dept so they can help to expedite the response from MMO. Radha wishes to keep her appointments scheduled for COB here in [place] on 03/08/25 until her hears back from her insurance.At this time she is also asking to keep the appt scheduled for Nov with MFM at [place]. She will cancel this is she is able to come to [place] for COB. I rescheduled her cardiology appointment that was cancelled by the [place] office today. I answered all of her questions to the best of my ability. She has my direct contact information and will call me as soon as she hears back from MMO [facility] 02-18-2025 Telephone encounter Note Pt states she is changing insurance companies 1st of the year, so is checking to see how this will affect coverage with specialists. Scheduled Pt for anatomy US as it was not scheduled & Pt preferred to have completed here in [place] rather than [place]. Scheduled Pt for MFM on 05/11 as advised here in [place] [facility] Pt will notify office once she gets in touch with insurance company and will get all appointments set up as advised further. Pema Aldana RN [facility] 02-18-2025 Miscellaneous Notes Pt states she is changing insurance companies 1st of the year, so is checking to see how this will affect coverage with specialists. Scheduled Pt for anatomy US as it was not scheduled & Pt preferred to have completed here in [place] rather than [place]. Scheduled Pt for MFM on 05/11 as advised here in [place] and advised Pt to look at mychart. Pt will notify office once she gets in touch with insurance company and will get all appointments set up as advised further. Pema Aldana RN Please add patient to [facility] day 05/11 in [facility] patient does not make it to cardio OB appt 03/08 MFM does want her seen here in [place] and that provider is also cardio OB. documented in this encounter [facility] 02-18-2025 Telephone encounter Note Please add patient to MFM day 05/11 in [place] patient does not make it to cardio OB appt 03/08 MFM does want her seen here in [place] and that provider is also cardio OB. [facility] 02-12-2025 Instructions Stephanie Mike MA - 02/12/2025 8:02 AM EDT SEQUENTIAL SCREENINGS The [facility] offers sequential screenings for women who are interested in screenings for chromosomal abnormalities and certain defects during a . The sequential screen combines ultrasound and blood tests to determine the risk of chromosomal abnormalities, including Down's Syndrome (Trisomy 21) and Trisomy 18, as well as open neural tube defects including spina bifida. Ultrasound examination is performed between 11 weeks and 13 weeks gestational age. Blood tests are drawn after the ultrasound and again later in the between 15 and 21 weeks gestational age. Please let your physician know if you are interested in this testing. It will require an appointment with our licensed chemical spray technician. This is not an ultrasound performed by a physician in our office during a routine visit. SIGNS AND SYMPTOMS OF LABOR 1. Contractions every 10 minutes or more often 2. Clear, pink, or brownish fluid (water) leaking from vagina 3. Feeling that baby is pushing down, pressure 4. Low, dull backache 5. Cramps that feel like a period 6. Cramps with or without diarrhea If you notice any of the above symptoms, contact our office at [phone] and ask to speak with a nurse. After hours, you can call doctors registry at [phone] OR call [facility] at [phone] and ask to have the doctor information systems auditor paged. If you consider this an emergency, dial 4--9 or go to your nearest emergency department. NEED HELP? Are you dealing with a violent or abusive relationship? Are you a victim of rape or sexual assult? Call [facility] ([place]) 24 hour Crisis Hotline: 650.620.6379 or 664-342-3562. MANUAL Your Guide to a Healthy manual is now on-line. Visit [email or web address] to download your free copy documented in this encounter [facility] 02-12-2025 Progress note Formatting of t his note might be different from the original. DM-Pt doing well. Denies vaginal Bleeding, Leaking fluid, or regular Contractions. Pt reports good movement Physical Exam: Gen: female in no apparent distress Abd: soft, Gravid. Non tender to palpation. See flow sheet @ 16.6 weeks Assessment & Plan Encounter for supervision of high risk multigravida of advanced maternal age, antepartum (HCC) Tried ASA- allergic reaction- stopped taking History of History of section Planning Hypertrophic cardiomyopathy (HCC) Cardiac ob appt scheduled 03/08 Family history of hypertrophic cardiomyopathy 16 weeks gestation of (HCC) RTO 4 wks Anatomy us is scheduled - Change to MFM day? Cherie March MD [facility] 02-12-2025 Miscellaneous Notes DM-Pt doing well. Denies vaginal Bleeding, Leaking fluid, or regular Contractions. Pt reports good movement Physical Exam: Gen: female in no apparent distress Abd: soft, Gravid. Non tender to palpation. See flow sheet @ 16.6 weeks Assessment & Plan Encounter for supervision of high risk multigravida of advanced maternal age, antepartum (HCC) Tried ASA- allergic reaction- stopped taking History of History of section Planning Hypertrophic cardiomyopathy ([facility]) Cardiac ob appt scheduled 03/08 Family history of hypertrophic cardiomyopathy 16 weeks gestation of (HCC) RTO 4 wks Anatomy us is scheduled - Change to MFM day? Cherie March MD documented in this encounter [facility] 01-18-2025 Telephone encounter Note Referral to [facility]. Patient lives in [place]. Sent to [place] team to assist. [facility] 01-18-2025 Miscellaneous Notes Referral to [facility]. Patient lives in [place]. Sent to [place] team to assist. documented in this encounter [facility] 01-15-2025 Telephone encounter Note Spoke with patient. She is still in the process of checking on her insurance coverage because it will be changing in June. Notified patient that we could coordinate her 20 week anatomy with [facility] on 03/02 if she would like. Patient will let our office know when she has more information. Anabell Gotti RN [facility] 01-15-2025 Miscellaneous Notes Spoke with patient. She is still in the process of checking on her insurance coverage because it will be changing in June. Notified patient that we could coordinate her 20 week anatomy with MFM on 03/02 if she would like. Patient will let our office know when she has more information. Anabell Gotti RN She is eligible for early anatomy at 16 weeks. Could do at same time if we have availability. If not, 20 week anatomy scan. Kodi Garcia APRN.CNP How soon does she need to meet with MFM? Anytime? Anabell Gotti RN Images from the original note were not included. Kodi Garcia APRN.CNP P Wstr Ob-Lozenge Dough Mixer Pool Please let patient know I placed MFM consult. She had concerns about insurance coverage. We do recommend MFM consult. Kodi Garcia APRN.CNP documented in this encounter [facility] 01-15-2025 Telephone encounter Note She is eligible for early anatomy at 16 weeks. Could do at same time if we have availability. If not, 20 week anatomy scan. Kodi Garcia APRN.CNP [facility] 01-15-2025 Telephone encounter Note How soon does she need to meet with MFM? Anytime? Anabell Gotti RN [facility] 01-15-2025 Telephone encounter Note Images from the original note were not included. Kodi Garcia APRN.[employer] P Wstr Ob-Lozenge Dough Mixer Pool Please let patient know I placed MFM consult. She had concerns about insurance coverage. We do recommend MFM consult. Kodi Garcia APRN.[employer] [facility] 01-14-2025 Progress note Formatting of t his note might be different from the original. EH - S: Radha is a 35 year old female who presents at 12w5d for a routine visit. Feeling movement. Denies headache, visual changes, chest pain, shortness of breath, vaginal bleeding, leakage of fluid, or dysuria. Feeling well, no complaints. O: See flow sheet Gen: No apparent distress Abd: Gravid, nontender ASSESSMENT/PLAN: 1. Encounter for supervision of high risk multigravida of advanced maternal age, antepartum (HCC) - ICD9: V23.82, ICD10: O09.529 (primary diagnosis) - Continue PNV and LDA 2. 12 weeks gestation of (HCC) - ICD9: V22.2, ICD10: Z3A.12 - Nuchal today, report pending - Start LDA - Opts for [id number] 3. History of - ICD9: V13.29, ICD10: Z98.891 4. History of section - ICD9: V45.89, ICD10: Z98.891 - To discuss MOD with physician - Wants to again 5. Hypertrophic cardiomyopathy (HCC) - ICD9: 425.18, ICD10: I42.2 6. Family history of hypertrophic cardiomyopathy - ICD9: V17.49, ICD10: Z82.49 - Last saw cardiology 2022 - Baseline CMP and PCR ordered - Consider consult to cardio OB vs MFM - Normally has yearly echo and EKG, has not done this year yet PTL precautions reviewed. RTO in 4 weeks or sooner as needed. Kodi Garcia APRN.CNP [facility] 01-14-2025 Miscellaneous Notes EH - S: Radha is a 35 year old female who presents at 12w5d for a routine visit. Feeling movement. Denies headache, visual changes, chest pain, shortness of breath, vaginal bleeding, leakage of fluid, or dysuria. Feeling well, no complaints. O: See flow sheet Gen: No apparent distress Abd: Gravid, nontender ASSESSMENT/PLAN: 1. Encounter for supervision of high risk multigravida of advanced maternal age, antepartum (HCC) - ICD9: V23.82, ICD10: O09.529 (primary diagnosis) - Continue PNV and LDA 2. 12 weeks gestation of (HCC) - ICD9: V22.2, ICD10: Z3A.12 - Nuchal today, report pending - Start LDA - Opts for [id number] 3. History of - ICD9: V13.29, ICD10: Z98.891 4. History of section - ICD9: V45.89, ICD10: Z98.891 - To discuss MOD with physician - Wants to again 5. Hypertrophic cardiomyopathy (HCC) - ICD9: 425.18, ICD10: I42.2 6. Family history of hypertrophic cardiomyopathy - ICD9: V17.49, ICD10: Z82.49 - Last saw cardiology 2022 - Baseline CMP and PCR ordered - Consider consult to cardio OB vs MFM - Normally has yearly echo and EKG, has not done this year yet PTL precautions reviewed. RTO in 4 weeks or sooner as needed. Kodi Garcia APRN.CNP documented in this encounter [facility] 01-14-2025 Instructions Kodi Garcia APRN.CNP - 01/14/2025 3:47 PM EDT Safe Medications to Take During for Cold and Flu Diphenhydramine (Benadryl) Dextromethorphan (Robitussin) Guaifenesin (Mucinex [plain]) Vicks Vapor Rub mentholated cream Mentholated or non-mentholated cough drops (Sugar free cough drops for gestational diabetes should not contain blends of herbs or aspartame) Acetaminophen (Tylenol) Saline nasal drops or spray Warm salt/water gargle *Note: Do not take the SA (Sustained Action) form of these drugs or the Multi Symptom form of these drugs Do not use Nyquil or a generic version, due to its high alcohol content SEQUENTIAL SCREENINGS The [facility] offers sequential screenings for women who are interested in screenings for chromosomal abnormalities and certain defects during a . The sequential screen combines ultrasound and blood tests to determine the risk of chromosomal abnormalities, including Down's Syndrome (Trisomy 21) and Trisomy 18, as well as open neural tube defects including spina bifida. Ultrasound examination is performed between 11 weeks and 13 weeks gestational age. Blood tests are drawn after the ultrasound and again later in the between 15 and 21 weeks gestational age. Please let your physician know if you are interested in this testing. It will require an appointment with our licensed chemical spray technician. This is not an ultrasound performed by a physician in our office during a routine visit. SIGNS AND SYMPTOMS OF LABOR 1. Contractions every 10 minutes or more often 2. Clear, pink, or brownish fluid (water) leaking from vagina 3. Feeling that baby is pushing down, pressure 4. Low, dull backache 5. Cramps that feel like a period 6. Cramps with or without diarrhea If you notice any of the above symptoms, contact our office at [phone] and ask to speak with a nurse. After hours, you can call doctors registry at [phone] OR call [facility] at [phone] and ask to have the doctor information systems auditor paged. If you consider this an emergency, dial 9-2 or go to your nearest emergency department. NEED HELP? Are you dealing with a violent or abusive relationship? Are you a victim of rape or sexual assult? Call [facility] ([place]) 24 hour Crisis Hotline: 633.685.2151 or 668-690-8960. MANUAL Your Guide to a Healthy manual is now on-line. Visit [email or web address] to download your free copy documented in this encounter [facility] 12-14-2024 Progress note Formatting of t his note might be different from the original. Patient is a at 8.2 weeks gestation here for NOB. See progress note. Jihan Enriquez APRN.CNM [facility] 12-14-2024 Miscellaneous Notes Patient is a at 8.2 weeks gestation here for NOB. See progress note. Jihan Enriquez APRN.CNM documented in this encounter [facility] 12-14-2024 Note HNO ID: [id number] Author: NA SAENZ MA Service: ? Author Type: Chopper Feeder Type: Progress Notes Filed: 12/14/2024 17:22 Note Text: OB point of care ultrasound was performed. See imaging tab for details. Na Saenz MA [facility] 12-14-2024 History of Present illness Narrative OB point of care ultrasound was performed. See imaging tab for details. Na Saenz MA Patient declined occupational safety and health manager. INITIAL OB ASSESSMENT HPI: Radha is a 34 year old White here to establish Obstetrical Care. Patient's last menstrual period was 01/12/2024 (within days). from OB Dating Form. was unplanned but accepted Complaints: Vaginal bleeding 2 weeks ago spotting- after working out OB History Gravida3 Para2 Term2 Preterm0 AB1 Living2 SAB1 IAB0 Ectopic0 Multiple0 Live Births2 Previous history: Prior : yes x 1 History of 4th degree laceration: No History of shoulder dystocia: No History of Hypertensive disorders including pre-eclampsia or gestational hypertension: No History of gestational diabetes: No Patient's Risk Screening for delivery: Have you had a prior kaye between 20w and 36w6d? No How many pregnancies have you had before? 3 Did you have a previous baby with a GBS Infection? No Please select all that apply for any prior : N/A MEDICAL/PSYCHOSOCIAL HISTORY: History of hemorrhage or bleeding concerns: No Thyroid Disease: No History of chronic hypertension: No History of pre-existing diabetes: No ABO/RH(D) Date Value Ref Range Status 03/28/2017 O POSITIVE Final No weight on file for this encounter. Last Pap: 02/06/2024 History of abnormal pap: No Prior treatment for cervical dysplasia: none. Last HPV: 02/06/2024 History of STDs: chlamydia and HSV Partner History of STDs: None Did you have a partner with Herpes? No Tobacco use: No E-Cigarette/Vaping Use: No Caffeine use: Yes Drug use: No Alcohol use: No Multivitamin with Folic acid: Yes Would refuse blood transfusion if medically necessary: No Social Needs: How often does this describe you? I don't have enough money to pay my bills: Never Within the past 12 months, have you worried that your food would run out before you had money to buy more? Never In the past 12 months, has lack of reliable transportation kept you from going to medical appointments or work, or from getting things needed for daily living? Never In the past 12 months, have you had any concerns about having a place to live, or about the condition or quality of your housing? Never Would you like more information on any of the following (please check all that apply)? Not interested Social History: Do you have any history of depression, anxiety, PTSD, or other mood problems? No Do you have a history of abuse or trauma that may impact your experience? No Are you currently employed? Yes Depression/Anxiety Screening: denies symptoms of depression. OB Depression and Anxiety Screening- This Encounter None Genetic Screening: Partner present: Yes, Dar Patient verbalized knowledge of partner family health history: Yes Do you or your partner have any personal or family history of defects not previously discussed: No Do you have history of a complicated by anomaly, genetic condition, or demise: No Preeclampsia Risk Screening: Screening for prevention of preeclampsia: High risk factors: None Moderate risk ractors: None OB Risk Screening: Completed, no positive findings documented. 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 Davonte Chand, [facility] Current Outpatient Medications Medication Sig Dispense Refill montelukast (SINGULAIR) 10 mg tablet Take 1 tablet by mouth daily at bedtime. 90 tablet 2 omalizumab (XOLAIR) 150 mg/mL syringe Inject 150 mg subcutaneously. valACYclovir (VALTREX) 500 mg tablet Take 1 tablet by mouth once daily. 90 tablet 3 albuterol HFA (PROAIR HFA) 90 mcg/actuation inhaler Inhale 2 Puffs as instructed every 4 hours as needed. 36 g 3 MULTIVITAMIN ORAL Take by mouth once daily. levonorgestrel (MIRENA) 21 mcg/24 hours (8 yrs) 52 mg IUD 1 Each by INTRAUTERINE route one time only. No current facility-administered medications for this visit. Allergies As of Date: 12/14/2024 Allergen Noted Reaction MORPHINE 09/16/2014 Itching Fully Assessed 03/20/2024 Does patient have penicillin allergy: No REVIEW OF SYSTEMS: GENERAL: Negative for: Fever or Chills and Positive for: Fatigue HEENT: Negative for: Headache, Impaired Vision, Ringing in Ears, Nosebleeds NECK: Negative for: Swelling, Pain, Stiffness RESPIRATORY: Negative for: Cough, Shortness of breath, Wheezing HX OF ASTHMA- during . Allergy induced asthma GASTROINTESTINAL: Negative for: Heartburn, Constipation, Diarrhea, Blood in stool, Vomiting MUSCULOSKELETAL: Negative for: Muscle or joint pain, stiffness, Joint swelling NEUROLOGIC/PSYCHIATRIC: Negative for: Weakness, Paralysis, Numbness, Tingling, Tremor, Anxiety, Depression, Memory loss Hx of anxiety/ 10 years ago SKIN: Negative for: Rash, Itching GENITOURINARY: Negative for: vaginal itching, vaginal discharge, hematuria or dysuria SENSITIVE EXAM: The sensitive examination was discussed with the Patient or Patient's Authorized Safety Deposit Supervisor. As applicable, any other physician, advance practice provider, medical student, or other health professional student that will be observing or involved in the sensitive examination for educational or training purposes was discussed with the Patient or Authorized Safety Deposit Supervisor. The Patient or Authorized Safety Deposit Supervisor has agreed to proceed with the sensitive examination. (Sensitive examination includes inspection and/or palpation of the breasts, pelvis, prostate and anorectal regions). PHYSICAL EXAM: BP 124/68 Wt 161 lb 12.8 oz (73.4kg) LMP 10/23/2024 GENERAL: pleasant in no apparent distress DERMATOLOGY: Normal and without lesions NECK: Supple and full range of motion CHEST: Normal inspiratory effort BREAST: deferred ABDOMEN: soft, non-tender, and no masses NEURO: alert and oriented x3,exam grossly non-focal PELVIS: External genitalia normal without lesions. Perineal body intact. No vaginal or cervical lesions. Cervix closed. Clinical Pelvimetry: Pelvimetry clinically assessed as adequate Limited OB ultrasound exam: single intrauterine , positive cardiac activity, and crown-rump length 8.2 weeks gestation ASSESSMENT: 34 year old at Unknown wks gestational age PLAN: 1) Patient oriented to practice. Patient given new OB orientation folder. Discussed nutrition, folic acid supplementation, dietary guidelines, exercise, smoking, alcohol, caffeine, and drug use. Discussed routine OB labs including STD/HIV. Discussed how to access Your guide to a health and the Supply Chain Program Manager. Reviewed midwifery and party plan salesperson services that are available. 2) Screening: Hemoglobin A1C: ordered Baby Aspirin: The patient has been counseled about the potential benefits of low dose aspirin in and our recommendation that this be offered to all patients, regardless of whether they meet the high risk criteria specified above. She Accepts Aneuploidy Screening: Discussed aneuploidy screening, nuchal translucency/first trimester early anatomy ultrasound and NIPT. The risks/benefits and limitations of NIPT/aneuploidy screening were reviewed including the potential for false negative and false positive results. The availability of genetic counseling was reviewed. Information on aneuploidy screening was provided. The patient is uncertain. She will call back if she wants to proceed with screening. Pt aware of timing. Myriad Carrier Screening: Discussed myriad carrier screening. We discussed the availability of professional-society guided carrier screening and reviewed the conditions screened and limitations of screening. The availability of genetic counseling was reviewed. Information on carrier screening was provided. The patient Declines 3) Patient offered option of Virtual Visits. Patient prefers in person visits. 4) History of section: Pt counselled regarding TOLAC versus Repeat Section. Successful . AMA: Aneuploidy screening reviewed Follow up in 3 weeks for 1st trimester ultrasound and CELIA Enriquez APRN.CNM documented in this encounter [facility] 12-11-2024 Note HNO ID: [id number] Author: JIHAN ENRIQUEZ APRN.CNM Service: ? Author Type: Air Brake Man Type: Progress Notes Filed: 12/14/2024 17:22 Note Text: Patient declined occupational safety and health manager. INITIAL OB ASSESSMENT HPI: Radha is a 34 year old White here to establish Obstetrical Care. Patient's last menstrual period was 01/12/2024 (within days). from OB Dating Form. was unplanned but accepted Complaints: Vaginal bleeding 2 weeks ago spotting- after working out OB History Gravida3 Para2 Term2 Preterm0 AB1 Living2 SAB1 IAB0 Ectopic0 Multiple0 Live Births2 Previous history: Prior : yes x 1 History of 4th degree laceration: No History of shoulder dystocia: No History of Hypertensive disorders including pre-eclampsia or gestational hypertension: No History of gestational diabetes: No Patient's Risk Screening for delivery: Have you had a prior kaye between 20w and 36w6d? No How many pregnancies have you had before? 3 Did you have a previous baby with a GBS Infection? No Please select all that apply for any prior : N/A MEDICAL/PSYCHOSOCIAL HISTORY: History of hemorrhage or bleeding concerns: No Thyroid Disease: No History of chronic hypertension: No History of pre-existing diabetes: No ABO/RH(D) Date Value Ref Range Status 03/28/2017 O POSITIVE Final No weight on file for this encounter. Last Pap: 02/06/2024 History of abnormal pap: No Prior treatment for cervical dysplasia: none. Last HPV: 02/06/2024 History of STDs: chlamydia and HSV Partner History of STDs: None Did you have a partner with Herpes? No Tobacco use: No E-Cigarette/Vaping Use: No Caffeine use: Yes Drug use: No Alcohol use: No Multivitamin with Folic acid: Yes Would refuse blood transfusion if medically necessary: No Social Needs: How often does this describe you? I don't have enough money to pay my bills: Never Within the past 12 months, have you worried that your food would run out before you had money to buy more? Never In the past 12 months, has lack of reliable transportation kept you from going to medical appointments or work, or from getting things needed for daily living? Never In the past 12 months, have you had any concerns about having a place to live, or about the condition or quality of your housing? Never Would you like more information on any of the following (please check all that apply)? Not interested Social History: Do you have any history of depression, anxiety, PTSD, or other mood problems? No Do you have a history of abuse or trauma that may impact your experience? No Are you currently employed? Yes Depression/Anxiety Screening: denies symptoms of depression. OB Depression and Anxiety Screening- This Encounter None Genetic Screening: Partner present: Yes, Dar Patient verbalized knowledge of partner family health history: Yes Do you or your partner have any personal or family history of defects not previously discussed: No Do you have history of a complicated by anomaly, genetic condition, or demise: No Preeclampsia Risk Screening: Screening for prevention of preeclampsia: High risk factors: None Moderate risk ractors: None OB Risk Screening: Completed, no positive findings documented. 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 Davonte Chand, [facility] Current Outpatient Medications Medication Sig Dispense Refill montelukast (SINGULAIR) 10 mg tablet Take 1 tablet by mouth daily at bedtime. 90 tablet 2 omalizumab (XOLAIR) 150 mg/mL syringe Inject 150 mg subcutaneously. valACYclovir (VALTREX) 500 mg tablet Take 1 tablet by mouth once daily. 90 tablet 3 albuterol HFA (PROAIR HFA) 90 mcg/actuation inhaler Inhale 2 Puffs as instructed every 4 hours as needed. 36 g 3 MULTIVITAMIN ORAL Take by mouth once daily. levonorgestrel (MIRENA) 21 mcg/24 hours (8 yrs) 52 mg IUD 1 Each by INTRAUTERINE route one time only. No current facility-administered medications for this visit. Allergies As of Date: 12/14/2024 Allergen Noted Reaction MORPHINE 09/16/2014 Itching Fully Assessed 03/20/2024 Does patient have penicillin allergy: No REVIEW OF SYSTEMS: GENERAL: Negative for: Fever or Chills and Positive for: Fatigue HEENT: Negative for: Headache, Impaired Vision, Ringing in Ears, Nosebleeds NECK: Negative for: Swelling, Pain, Stiffness RESPIRATORY: Negative (more content not included)... [facility] 12-11-2024 Instructions Cherrie Orr LPN - 12/11/2024 3:17 PM EDT Please select the following link to access the [facility] Your Guide to a Healthy . [email or web address] Please select the following link to access the [facility] Your Guide to a Healthy . [email or web address] documented in this encounter [facility] 11-25-2024 Telephone encounter Note Patient has appt - closing encounter. Drake Trent RN [facility] 11-25-2024 Miscellaneous Notes Patient has appt - closing encounter. Drake Trent RN Call placed to patient to triage for new OB appt. Name and identified. LMP? Gestational age 4w3d When did you have a + test? yesterday PNV? Will start today Pelvic pain? no Vaginal bleeding? no Nausea? no Vomiting? no Any medical history that can effect the ? Has gene for hypertrophic cardiomyopathy but has not been diagnosed with it. 3rd . Office/provider patient wishes to establish care to? Miguel Patient aware to sign up for My Chart if she does not already have it, so she can receive the geriatric personal care aide messages. Will forward this encounter to the schedulers in this office. Drake Trent RN ----- Message from Sury Fonseca sent at 11/23/2024 8:31 AM EDT ----- Regardinst ob visit LMP 10/23/24 Heart condition gene that she herself is being monitored for. Please reach out to assist her in making her first ob visit. LMP 11/12/24 4w 3d wants to see Dr. Isabel. Miguel documented in this encounter [facility] 11-23-2024 Telephone encounter Note Call placed to patient to triage for new OB appt. Name and identified. LMP? Gestational age 4w3d When did you have a + test? yesterday PNV? Will start today Pelvic pain? no Vaginal bleeding? no Nausea? no Vomiting? no Any medical history that can effect the ? Has gene for hypertrophic cardiomyopathy but has not been diagnosed with it. 3rd . Office/provider patient wishes to establish care to? Miguel Patient aware to sign up for My Chart if she does not already have it, so she can receive the geriatric personal care aide messages. Will forward this encounter to the schedulers in this office. Drake Trent RN [facility] 11-23-2024 Telephone encounter Note ----- Message from Sury Fonseca sent at 11/23/2024 8:31 AM EDT ----- Regardinst ob visit LMP 10/23/24 Heart condition gene that she herself is being monitored for. Please reach out to assist her in making her first ob visit. LMP 11/12/24 4w 3d wants to see Dr. Isabel. Miguel [facility] 04-02-2024 Telephone encounter Note The following approved medication requests have been transmitted electronically. Requested Prescriptions Signed Prescriptions Disp Refills montelukast (SINGULAIR) 10 mg tablet 90 tablet 2 Sig: Take 1 tablet by mouth daily at bedtime. Maddy Esquivel APRN.CON [facility] Work Phone: 04-02-2024 Miscellaneous Notes The following approved medication requests have been transmitted electronically. Requested Prescriptions Signed Prescriptions Disp Refills montelukast (SINGULAIR) 10 mg tablet 90 tablet 2 Sig: Take 1 tablet by mouth daily at bedtime. Maddy Esquivel APRN.CNP Patient was seen for yearly and requested refill but never sent. Mary Schwartz MA documented in this encounter [facility] 04-02-2024 Telephone encounter Note Patient was seen for yearly and requested refill but never sent. Mary Schwartz MA [facility] 03-23-2024 History of Present illness Narrative CC: Radha Chung is a 34 year old female who presents to the office for physical HPI: Overall healthy. She is physically active and trying to work on eating a balanced healthy diet. 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 PAST MEDICAL HISTORY Diagnosis Date Chlamydia Herpes simplex without mention of complication Nasal polyps Other acne PAST SURGICAL HISTORY Procedure Laterality Date ECHO DOPPLER COMPLETE 02/2005 normal ECHO DOPPLER COMPLETE 02/2008 normal EXTRACTION ERUPTED TOOTH/EXR INJECTION zolar REM LESION FACE,EAR,EYE 2.1-3 CM 06/25/2016 lip SEPTOPLASTY Bilateral 04/08/2019 Dr. Davonte Chand, [facility] Social History: Social History Tobacco Use Smoking status: Never Smokeless tobacco: Never Vaping Use Vaping status: Never Used Substance Use Topics Alcohol use: Yes Comment: rarely Drug use: No FAMILY HISTORY Problem Relation Age of Onset other (sudden cardiac ) Brother Hypertension Mother Blood Disease Mother anemia Cancer Mother 53 mucinous tumor on appendix Hypertension Father 59 HCM Cervical Cancer Maternal Grandmother 60 Cataract Maternal Grandmother Psychiatry Sister depression other (HCM) Sister other (HCM) Brother Aneurysm Paternal Aunt brain aneurysm Current Outpatient prescriptions: omalizumab (XOLAIR) 150 mg/mL syringe Inject 150 mg subcutaneously. valACYclovir (VALTREX) 500 mg tablet Take 1 tablet by mouth once daily. albuterol HFA (PROAIR HFA) 90 mcg/actuation inhaler Inhale 2 Puffs as instructed every 4 hours as needed. MULTIVITAMIN ORAL Take by mouth once daily. montelukast (SINGULAIR) 10 mg tablet Take 1 tablet by mouth daily at bedtime. levonorgestrel (MIRENA) 21 mcg/24 hours (8 yrs) 52 mg IUD 1 Each by INTRAUTERINE route one time only. Allergies: ALLERGIES Allergen Reactions Morphine Itching ROS: See HPI PE: 03/20/24 1311 BP: 110/78 BP Site: Left Arm BP Position: Sitting BP Cuff Size: Regular Adult Pulse: 62 Resp: 12 SpO2: 100% Weight: 69.7 kg (153 lb 9.6 oz) Height: 160.7 cm (5' 3.25) Gen: A&O, NAD, non-toxic appearing, Pleasant, cooperative HEENT: NT/AC, PERRLA, EOMs intact b/l, nares clear and patent b/l, pharynx without erythema, exudate or lesions. Uvula midline. EACs without erythema or debris. TMs pearly bar with intact landmarks b/l. Neck: supple, No cervical LAD, no thyromegaly, no carotid bruits CV: RRR, normal S1 and S2, no murmurs, no gallops, no rubs, Pulses 2+ and symmetric in UE and LE b/l Lungs: normal respiratory effort, CTA b/l, no wheezing or rhonchi or rales Abd: soft, NT, ND, +BS, no hepatosplenomegaly MS: FROM all 4 extremities Neuro: CN II-XII intact b/l, strength 5/5 b/l UE and LE, DTRs 2/4 UE and LE, sensation intact. Skin: warm, dry, intact, No rashes or lesions on exposed skin. No edema, normal pulses ASSESSMENT/PLAN: 1. Well adult exam - ICD9: V70.0, ICD10: Z00.00 - Counseled on healthy diet and regular exercise - Discussed need and benefit for weight loss. BMI 26.99 kg/(m^2) Uvaldo Milton DO To ER if develops chest pain, shortness of breath, or severe worsening of symptoms. Discussed risks, benefits, alternatives, and potential side effects of medications. Patient expressed understanding and agreed with the plan. Uvaldo Milton DO [address] [place] [address] documented in this encounter [facility] 03-20-2024 Instructions Uvaldo Milton DO - 03/20/2024 1:46 PM EDT Super beets powder - Nutra champs Too Good yogurt documented in this encounter [facility] 01-28-2024 History of Present illness Narrative Radha is a 34 year old who presents for an annual gynecologic exam without complaints. Menses: cycles Q30 days light - Mirena IUD. Contraception: IUD HPV vaccine: No Last Pap: 11/20/2019 normal HPV: 11/24/2019 negative History of abnormal pap: No Last mammogram: 2022 normal Sexually active: Yes History of STDS: None Patient concerns for STD exposure: No. Pain with intercourse: No Postcoital bleeding: No Exercise: routine Diet: balanced OB History T2 L2 SAB1 IAB0 Ectopic0 Multiple0 Live Births2 Lozenge Dough Mixer History LMP: 01/12/2024 (Within Days), IUD Age at Menarche: Age at First : Age at Menopause: Lozenge Dough Mixer History Comments: Sexual Activity: Yes; Male Contraception: I.U.D. PAST MEDICAL HISTORY No date: Chlamydia No date: Herpes simplex without mention of complication No date: Nasal polyps No date: Other acnePAST SURGICAL HISTORY 02/2005: ECHO DOPPLER COMPLETE Comment: normal 02/2008: ECHO DOPPLER COMPLETE Comment: normal No date: EXTRACTION ERUPTED TOOTH/EXR No date: INJECTION Comment: zolar 06/25/2016: REM LESION FACE,EAR,EYE 2.1-3 CM Comment: lip 04/08/2019: SEPTOPLASTY; Bilateral Comment: Dr. Davonte Chand, [facility] FAMILY HISTORY Problem Relation Age of Onset other (sudden cardiac ) Brother Hypertension Mother Blood Disease Mother anemia Cancer Mother 53 mucinous tumor on appendix Hypertension Father 59 HCM Cervical Cancer Maternal Grandmother 60 Cataract Maternal Grandmother Psychiatry Sister depression other (HCM) Sister other (HCM) Brother Aneurysm Paternal Aunt brain aneurysm SOCIAL HISTORY Social History Tobacco Use Smoking status: Never Smokeless tobacco: Never Vaping Use Vaping Use: Never used Substance Use Topics Alcohol use: Yes Comment: rarely Drug use: No REVIEW OF SYSTEMS Abdomen: No abdominal pain, nausea, vomiting, diarrhea, or constipation. No bloating, early satiety, indigestion, or increased flatulence. Bladder: No dysuria, gross hematuria, urinary frequency, urinary urgency, or incontinence. Breast: No breast lumps, nipple d/c, overlying skin changes, redness or skin retraction. Allergies and current medication updated:Yes EXAM: BP 112/68 Ht 5' 3 (1.60m) Wt 155 lb (70.3kg) LMP 01/12/2024 BMI 27.46 kg/(m^2). GENERAL: pleasant, female in no apparent distress HEENT: Normocephalic, atraumatic, mucus membranes moist, and no lesions NECK: Supple, full range of motion, no adenopathy, and thyroid normal DERMATOLOGY: Normal, without lesions, non-icteric, and non-hirsute BREAST: soft, non-tender, symmetric, no dominant mass, normal nipple-areolar complex, no lymphadenopathy, and no nipple discharge ABDOMEN: soft, non-tender, and no masses PELVIC: external genitalia normal, normal Bartholin's glands, urethra, [place]'s glands, no vulvar lesions, no cervical lesions, good vaginal support, physiologic discharge present, normal appearing perineal body and perianal region BIMANUAL: uterus normal size, shape and consistency, no adnexal masses, and non-tender RECTOVAGINAL: deferred. NEURO: alert and oriented x3,exam grossly non-focal EXTREMITIES: normal ASSESSMENT/PLAN: 1) Health maintenance: Pap done with HPV. Mammogram starting age 40. Nutrition, exercise and routine health maintenance exams reviewed. Calcium/Vitamin D supplementation information provided. Colon cancer screening: patient to discuss with PCP- sooner- mom age 52/53 with colono ca dx 2) Contraception: IUD out today Contraceptive options reviewed and information provided. 3) STD screening: Declined STD check. 4) Follow up one year or sooner as needed Cherie March MD Radha presents for removal of IUD due to desire for . UNIVERSAL PROTOCOL / SAFETY CHECKLIST Procedure to be Performed: IUD removal Sign In: A Moment of CARE was completed. Personnel directly involved with the procedure wore the appropriate PPE (Personal Protective Equipment). Patient/Surrogate Stated/Verified: PATIENT VERIFIED(optional for EMERGENT procedures): Patient name, Date of , Relevant allergies, and The intended procedure Time Out Communication: Intended patient and procedure match the source documents. Consent documented and matches the intended procedure. Sign Out: SIGN OUT (optional for EMERGENT procedures): No specimen collected. Cherie March MD PROCEDURE: Speculum placed in vagina, IUD string visualized and grasped with ring forceps. ASSESSMENT/PLAN: IUD removed without difficulty, intact, and patient tolerated procedure well. Contraception plans: none Reviewed pre-conception guidelines including folic acid supplementation, optimal timing of intercourse, avoidance of smoking, alcohol, exposure to environmental chemicals and need for evaluation if not within 12 months. Cherie March MD documented in this encounter [facility] 01-07-2024 Telephone encounter Note Left detailed message for Pt stating this information and to call back if any questions. Pema Aldana RN [facility] 01-07-2024 Miscellaneous Notes Left detailed message for Pt stating this information and to call back if any questions. Pema Aldana RN She can and insurance will allow both to be billed, may have to pay copay or deductible for that portion. Tila De Souza MD Patient has annual on 01/28/24. Asking if she can have her IUD removed the same day. Aware insurance will not allow us to bill for both in same day, but would check with DM. Order for IUD removal pending. Anabell Gotti, RETA documented in this encounter [facility] 01-07-2024 Telephone encounter Note She can and insurance will allow both to be billed, may have to pay copay or deductible for that portion. Tila De Souza MD [facility] Work Phone: 01-03-2024 Telephone encounter Note Patient has annual on 01/28/24. Asking if she can have her IUD removed the same day. Aware insurance will not allow us to bill for both in same day, but would check with DM. Order for IUD removal pending. Anabell Gotti, RN [facility] 04-30-2023 Note HNO ID: [id number] Author: Radha Kohler RT(R) Service: Radiology Author Type: Technologist Type: Progress Notes Filed: 04/30/2023 9:25 AM Note Text: Radiology Service Progress Note PATIENT NAME: Radha Chung DATE OF SERVICE: April 30, 2023 TIME: 9:25 AM PATIENT IDENTITY VERIFICATION COMPLETED USING TWO (2) IDENTIFIERS: Name and Date of confirmed by patient verbally. FALL SCREENING: Has the patient had 2 falls in the last year or 1 fall with injury or currently using an Ambulatory Assistive Device (Walker, Cane, Wheelchair, Crutches, etc.)? No PATIENT GENDER DATA: Female. status: : No status: NO. PATIENT RELEVANT IMPLANT DATA REVIEWED: Yes RADIOLOGY DEPARTMENT: Mammography PERIPHERAL IV DATA: Not applicable SIGNED BY: LENKA Jarrett) April 30, 2023 9:25 AM [facility] 04-30-2023 History of Present illness Narrative Radiology Service Progress Note PATIENT NAME: Radha Chung DATE OF SERVICE: April 30, 2023 TIME: 9:25 AM PATIENT IDENTITY VERIFICATION COMPLETED USING TWO (2) IDENTIFIERS: Name and Date of confirmed by patient verbally. FALL SCREENING: Has the patient had 2 falls in the last year or 1 fall with injury or currently using an Ambulatory Assistive Device (Walker, Cane, Wheelchair, Crutches, etc.)? No PATIENT GENDER DATA: Female. status: : No status: NO. PATIENT RELEVANT IMPLANT DATA REVIEWED: Yes RADIOLOGY DEPARTMENT: Mammography PERIPHERAL IV DATA: Not applicable SIGNED BY: LENKA Jarrett) April 30, 2023 9:25 AM documented in this encounter [facility] 03-20-2023 Miscellaneous Notes Phoned patient and went over results, notes from Dr Milton with understanding. Please inform patient that overall her labs look great. Her cholesterol LDL bad cholesterol type is slightly elevated at >110 and her ALT liver enzyme is also slightly elevated. This is likely due to the cholesterol levels. Needs to work on low cholesterol diet with less red meats and animal fats and less sugars in her diet. Would recommend recheck both in 3-4 months as ordered Uvaldo Milton DO documented in this encounter [facility] 03-05-2023 Telephone encounter Note Received message from patient that she is discharged from SNF and is back at home. Wanted us to know for next shipment of medication. Will forward to pharmacy. [facility] 03-05-2023 Miscellaneous Notes Received message from patient that she is discharged from SNF and is back at home. Wanted us to know for next shipment of medication. Will forward to pharmacy. documented in this encounter [facility] 11-21-2022 History of Present illness Narrative Steeping Press Tender offered: Patient declines. Radha is a 32 year old who presents for an annual gynecologic exam without complaints. Has some left breast or chest pain. Not sure of it is related to breast or to stress. Pt going to [place] for trip. Considering another child. Menses: irregular with Mirena IUD Contraception: IUD HPV vaccine: No Last Pap: 11/20/2019 normal HPV: 11/24/2019 negative History of abnormal pap: No Last mammogram: never Sexually active: Yes History of STDS: HSV Pain with intercourse: No Postcoital bleeding: No Exercise: active Diet: balanced OB History T2 L2 SAB1 IAB0 Ectopic0 Multiple0 Live Births2 Lozenge Dough Mixer History LMP: 11/18/2022, IUD Age at Menarche: Age at First : Age at Menopause: Lozenge Dough Mixer History Comments: Sexual Activity: Yes; Male Contraception: I.U.D. PAST MEDICAL HISTORY Diagnosis Date Chlamydia Herpes simplex without mention of complication Nasal polyps Other acne PAST SURGICAL HISTORY Procedure Laterality Date ECHO DOPPLER COMPLETE 02/2005 normal ECHO DOPPLER COMPLETE 02/2008 normal EXTRACTION ERUPTED TOOTH/EXR INJECTION zolar REM LESION FACE,EAR,EYE 2.1-3 CM 06/25/2016 lip SEPTOPLASTY Bilateral 04/08/2019 Dr. Davonte Chand, [facility] FAMILY HISTORY Problem Relation Age of Onset other (sudden cardiac ) Brother Hypertension Mother Blood Disease Mother anemia Cancer Mother 53 mucinous tumor on appendix Hypertension Father 59 HCM Cervical Cancer Maternal Grandmother 60 Cataract Maternal Grandmother Psychiatry Sister depression other (HCM) Sister other (HCM) Brother Aneurysm Paternal Aunt brain aneurysm SOCIAL HISTORY Social History Tobacco Use Smoking status: Never Smokeless tobacco: Never Vaping Use Vaping Use: Never used Substance Use Topics Alcohol use: Yes Comment: rarely Drug use: No REVIEW OF SYSTEMS Abdomen: No abdominal pain, nausea, vomiting, diarrhea, or constipation. No bloating, early satiety, indigestion, or increased flatulence. Bladder: No dysuria, gross hematuria, urinary frequency, urinary urgency, or incontinence. Breast: No breast lumps, nipple d/c, overlying skin changes, redness or skin retraction. Allergies and current medication updated:Yes EXAM: BP 110/68 Ht 5' 3 (1.60m) Wt 150 lb (68.0kg) LMP 11/18/2022 BMI 26.58 kg/(m^2). GENERAL: pleasant, female in no apparent distress HEENT: Normocephalic, atraumatic, mucus membranes moist, and no lesions NECK: Supple, full range of motion, no adenopathy, and thyroid normal DERMATOLOGY: Normal, without lesions, non-icteric, and non-hirsute BREAST: soft, symmetric, no dominant mass, normal nipple-areolar complex, no lymphadenopathy, no nipple discharge, and tender left breast at inner quadrant- no masses ?? MSK in nature ABDOMEN: soft, non-tender, and no masses PELVIC: external genitalia normal, normal Bartholin's glands, urethra, [place]'s glands, no vulvar lesions, no cervical lesions, good vaginal support, physiologic discharge present, normal appearing perineal body and perianal region IUD strings seen BIMANUAL: uterus normal size, shape and consistency, no adnexal masses, and non-tender RECTOVAGINAL: deferred. NEURO: alert and oriented x3,exam grossly non-focal EXTREMITIES: normal ASSESSMENT/PLAN: 1) Health maintenance: Pap/HPV up to date. Mammogram ordered. ? MSK vs Breast origin Nutrition, exercise and routine health maintenance exams reviewed. 2) Contraception: IUD. Contraceptive options reviewed and information provided. 3) STD screening: Declined STD check. 4) Follow up one year or sooner as needed 5) if decides to take out IUD recommend started pnv Cherie March MD documented in this encounter [facility] 09-04-2022 History of Present illness Narrative EVENT MONITOR DISPOSABLE PATCH INSTRUCTIONS Patient Name: Radha Chung [facility] Number: [id number] Skin prepped and cleansed with alcohol Patch secured to prepped area Monitor Activated Serial #: [id number] Patient Instructed: Prescribed order timeframe Bathing guidelines Usage of event button and diary documentation Return of monitor at the end of prescribed order Call with problems [phone] or [phone]. [phone] Patient expresses a good understanding of instructions Barb Galvin documented in this encounter [facility] 08-27-2022 Miscellaneous Notes Fax received from [facility] requesting a 90 day prescription for Valacyclovir 500 mg. Last yearly exam was 11/20/2021 documented in this encounter [facility] 03-17-2022 History of Present illness Narrative CC: Radha Chung is a 32 year old female who presents to the office for physical HPI: Recently was started on Xolair to help with her nasal polyps and trying to prevent reoccurrence of symptoms. She feels this is helping her smell HPL, diet controlled, working on weight loss efforts and regular exercise. Overweight, previously 1 year ago was 159 lbs. Currently 146 lbs. Working on intermittent fasting and decreasing sugars and carbohydrates in diet. Feeling better with these changes. PAST MEDICAL HISTORY Diagnosis Date Chlamydia Herpes simplex without mention of complication Nasal polyps Other acne PAST SURGICAL HISTORY Procedure Laterality Date ECHO DOPPLER COMPLETE 02/2005 normal ECHO DOPPLER COMPLETE 02/2008 normal REM LESION FACE,EAR,EYE 2.1-3 CM 06/25/2016 lip SEPTOPLASTY Bilateral 04/08/2019 Dr. Davonte Chand, [facility] Social History: Social History Tobacco Use Smoking status: Never Smokeless tobacco: Never Vaping Use Vaping Use: Never used Substance Use Topics Alcohol use: No Drug use: No FAMILY HISTORY Problem Relation Age of Onset other (sudden cardiac ) Brother Hypertension Mother Blood Disease Mother anemia Cancer Mother 53 mucinous tumor on appendix Hypertension Father 59 HCM Cervical Cancer Maternal Grandmother 60 Cataract Maternal Grandmother Psychiatry Sister depression other (HCM) Sister other (HCM) Brother Aneurysm Paternal Aunt brain aneurysm Current Outpatient prescriptions: valACYclovir (VALTREX) 500 mg tablet Take 1 tablet by mouth once daily. spironolactone (ALDACTONE) 100 mg tablet Take 1 tablet by mouth once daily. albuterol HFA (PROAIR HFA) 90 mcg/actuation inhaler Inhale 2 Puffs as instructed every 4 hours as needed. MULTIVITAMIN ORAL Take by mouth once daily. levonorgestrel (MIRENA) 20 mcg/24 hr (5 years) IUD 1 Each by INTRAUTERINE route one time only. montelukast (SINGULAIR) 10 mg tablet Take 1 tablet by mouth daily at bedtime. Allergies: ALLERGIES Allergen Reactions Morphine Itching Seasonl Allergies [* ROS: See HPI PE: 03/16/22 1222 BP: 110/70 Pulse: 64 Resp: 16 Temp: 36.1 C (97 F) TempSrc: Left Tympanic Weight: 66.2 kg (146 lb) Height: 160.5 cm (5' 3.19) Gen: A&O, NAD, non-toxic appearing, Pleasant, cooperative HEENT: NT/AC, PERRLA, EOMs intact b/l, nares clear and patent b/l, pharynx without erythema, exudate or lesions. MMM, Uvula midline. EACs without erythema or debris. TMs pearly bar with intact landmarks b/l. Neck: supple, No cervical LAD, no thyromegaly, no carotid bruits CV: RRR, normal S1 and S2, no murmurs, no gallops, no rubs, Pulses 2+ and symmetric in UE and LE b/l Lungs: normal respiratory effort, CTA b/l, no wheezing or rhonchi or rales Abd: soft, NT, ND, +BS, no hepatosplenomegaly MS: FROM all 4 extremities Neuro: CN II-XII intact b/l, strength 5/5 b/l UE and LE, DTRs 2/4 UE and LE, sensation intact. Skin: warm, dry, intact, No rashes or lesions on exposed skin. ASSESSMENT/PLAN: 1. Well adult exam - ICD9: V70.0, ICD10: Z00.00 (primary diagnosis) - Counseled on healthy diet and regular exercise - Calcium intake with supplements or by diet of 1000 mg/day for under 50, 0165-0661 mg/day for 50+ 2. Need for influenza vaccination - ICD9: V04.81, ICD10: Z23 - INFLUENZA VACCINE QUADRIVALENT 6 MO - 64 YRS IM 3. Nasal polyps - ICD9: 471.9, ICD10: J33.9 - improved symptoms with Xolair, f/u with specialist 4. Other hyperlipidemia - ICD9: 272.4, ICD10: E78.49 Diet controlled, she is working on weight loss efforts as well. Uvaldo Milton DO To ER if develops chest pain, shortness of breath, or severe worsening of symptoms. Discussed risks, benefits, alternatives, and potential side effects of medications. Patient expressed understanding and agreed with the plan. Uvaldo Milton DO [address] [place] [address] documented in this encounter [facility] 11-28-2021 Miscellaneous Notes Patient states she already received her Mail Order RX in the mail. Does not need RX sent to local [facility]. Anabell Gotti RN Medication was sent into mail order pharmacy pharmacy one week ago.Message left for patient to confirm that she wants it sent to [facility] pharmacy and that she has cancelled with mail order, because if it is on the way from mail order , she will probably have to pay out of pocket for a new RX. Please clarify when she calls back documented in this encounter [facility] 02-19-2017 History of Past i llness Narrative Problem Noted Date Resolved Date History of section 02/19/201710/16 Overview: 02/19/17: c/s for BREECH. Risks/benefits/alternatives discussed with patient regarding trial of labor and potential for uterine rupture. Risks include but are not limited to maternal hemorrhage, risk of injury to adjacent organs including potential hysterectomy. risks discussed as well, including potential for permanent neurologic injury or . Overall uterine rupture risk is less than 1% after one section. Is a trial of labor contraindicated for this patient? No If no, calculate rate of success using pre-labor factors: http://www.[facility].edu/mfmu/vagbirth.html Predicted chance of vaginal after : 70.4% Patient's plan for delivery mode: Trial of labor Cherie March MD Family or maternal historic risk of congenital anomaly, antepartum 04/22/2012 09/11/2012 Overview: Needs cardiology follow up and probable echocardiogram done. Offered genetic counseling which she declined. Offered echo, and order was placed. Pt will consider. Supervision of normal first 03/26/2012 03/06/2018 Unsure of LMP (last menstrua l period) as reason for ultrasound scan 03/26/2012 09/11/2012 Other acne 11/06/2017 Overview: Advised to stop current facial gel with retinoic acid in it. documented as of this encounter (statuses as of 11/28/2021) [facility] History of Past illness Narrative* Problem Noted Date Resolved Date History of section 02/19/201710/16 Overview: 02/19/17: c/s for BREECH. Risks/benefits/alternatives discussed with patient regarding trial of labor and potential for uterine rupture. Risks include but are not limited to maternal hemorrhage, risk of injury to adjacent organs including potential hysterectomy. risks discussed as well, including potential for permanent neurologic injury or . Overall uterine rupture risk is less than 1% after one section. Is a trial of labor contraindicated for this patient? No If no, calculate rate of success using pre-labor factors: http://www.bs.[facility]/mfmu/vagbirth.html Predicted chance of vaginal after : 70.4% Patient's plan for delivery mode: Trial of labor Cherie March MD Family or maternal historic risk of congenital anomaly, antepartum 04/22/2012 09/11/2012 Overview: Needs cardiology follow up and probable echocardiogram done. Offered genetic counseling which she declined. Offered echo, and order was placed. Pt will consider. Supervision of normal first 03/26/2012 03/06/2018 Unsure of LMP (last menstrua l period) as reason for ultrasound scan 03/26/2012 09/11/2012 Other acne 11/06/2017 Overview: Advised to stop current facial gel with retinoic acid in it. documented as of this encounter (statuses as of 03/17/2022) [facility] History of Past illness Narrative* Problem Noted Date Resolved Date History of section 02/19/201710/16 Overview: 02/19/17: c/s for BREECH. Risks/benefits/alternatives discussed with patient regarding trial of labor and potential for uterine rupture. Risks include but are not limited to maternal hemorrhage, risk of injury to adjacent organs including potential hysterectomy. risks discussed as well, including potential for permanent neurologic injury or . Overall uterine rupture risk is less than 1% after one section. Is a trial of labor contraindicated for this patient? No If no, calculate rate of success using pre-labor factors: http://www[facility]/vagbirth.html Predicted chance of vaginal after : 70.4% Patient's plan for delivery mode: Trial of labor Cherie March MD Family or maternal historic risk of congenital anomaly, antepartum 04/22/2012 09/11/2012 Overview: Needs cardiology follow up and probable echocardiogram done. Offered genetic counseling which she declined. Offered echo, and order was placed. Pt will consider. Supervision of normal first 03/26/2012 03/06/2018 Unsure of LMP (last menstrua l period) as reason for ultrasound scan 03/26/2012 09/11/2012 Other acne 11/06/2017 Overview: Advised to stop current facial gel with retinoic acid in it. documented as of this encounter (statuses as of 08/02/2022) [facility] History of Past illness Narrative* Problem Noted Date Resolved Date History of section 02/19/201710/16 Overview: 02/19/17: c/s for BREECH. Risks/benefits/alternatives discussed with patient regarding trial of labor and potential for uterine rupture. Risks include but are not limited to maternal hemorrhage, risk of injury to adjacent organs including potential hysterectomy. risks discussed as well, including potential for permanent neurologic injury or . Overall uterine rupture risk is less than 1% after one section. Is a trial of labor contraindicated for this patient? No If no, calculate rate of success using pre-labor factors: http://www[facility]/mu/vagbirth.html Predicted chance of vaginal after : 70.4% Patient's plan for delivery mode: Trial of labor Cherie March MD Family or maternal historic risk of congenital anomaly, antepartum 04/22/2012 09/11/2012 Overview: Needs cardiology follow up and probable echocardiogram done. Offered genetic counseling which she declined. Offered echo, and order was placed. Pt will consider. Supervision of normal first 03/26/2012 03/06/2018 Unsure of LMP (last menstrua l period) as reason for ultrasound scan 03/26/2012 09/11/2012 Other acne 11/06/2017 Overview: Advised to stop current facial gel with retinoic acid in it. documented as of this encounter (statuses as of 08/28/2022) [facility] History of Past illness Narrative* Problem Noted Date Resolved Date History of section 02/19/201710/16 Overview: 02/19/17: c/s for BREECH. Risks/benefits/alternatives discussed with patient regarding trial of labor and potential for uterine rupture. Risks include but are not limited to maternal hemorrhage, risk of injury to adjacent organs including potential hysterectomy. risks discussed as well, including potential for permanent neurologic injury or . Overall uterine rupture risk is less than 1% after one section. Is a trial of labor contraindicated for this patient? No If no, calculate rate of success using pre-labor factors: http://www.bs.[facility].edu/mfmu/vagbirth.html Predicted chance of vaginal after : 70.4% Patient's plan for delivery mode: Trial of labor Cherie March MD Family or maternal historic risk of congenital anomaly, antepartum 04/22/2012 09/11/2012 Overview: Needs cardiology follow up and probable echocardiogram done. Offered genetic counseling which she declined. Offered echo, and order was placed. Pt will consider. Supervision of normal first 03/26/2012 03/06/2018 Unsure of LMP (last menstrua l period) as reason for ultrasound scan 03/26/2012 09/11/2012 Other acne 11/06/2017 Overview: Advised to stop current facial gel with retinoic acid in it. documented as of this encounter (statuses as of 09/04/2022) [facility] History of Past illness Narrative* Problem Noted Date Resolved Date History of section 02/19/201710/16 Overview: 02/19/17: c/s for BREECH. Risks/benefits/alternatives discussed with patient regarding trial of labor and potential for uterine rupture. Risks include but are not limited to maternal hemorrhage, risk of injury to adjacent organs including potential hysterectomy. risks discussed as well, including potential for permanent neurologic injury or . Overall uterine rupture risk is less than 1% after one section. Is a trial of labor contraindicated for this patient? No If no, calculate rate of success using pre-labor factors: http://www.bs.[facility]/mfmu/vagbirth.html Predicted chance of vaginal after : 70.4% Patient's plan for delivery mode: Trial of labor Cherie March MD Family or maternal historic risk of congenital anomaly, antepartum 04/22/2012 09/11/2012 Overview: Needs cardiology follow up and probable echocardiogram done. Offered genetic counseling which she declined. Offered echo, and order was placed. Pt will consider. Supervision of normal first 03/26/2012 03/06/2018 Unsure of LMP (last menstrua l period) as reason for ultrasound scan 03/26/2012 09/11/2012 Other acne 11/06/2017 Overview: Advised to stop current facial gel with retinoic acid in it. documented as of this encounter (statuses as of 11/21/2022) [facility] History of Past illness Narrative* Problem Noted Date Diagnosed Date Resolved Date History of section 02/19/2017 11/06/2017 Overview: 02/19/17: c/s for BREECH. Risks/benefits/alternatives discussed with patient regarding trial of labor and potential for uterine rupture. Risks include but are not limited to maternal hemorrhage, risk of injury to adjacent organs including potential hysterectomy. risks discussed as well, including potential for permanent neurologic injury or . Overall uterine rupture risk is less than 1% after one section. Is a trial of labor contraindicated for this patient? No If no, calculate rate of success using pre-labor factors: http://www[facility]/vagbirth.html Predicted chance of vaginal after : 70.4% Patient's plan for delivery mode: Trial of labor Cherie March MD Family or maternal historic risk of congenital anomaly, antepartum 04/22/2012 3 Overview: Needs cardiology follow up and probable echocardiogram done. Offered genetic counseling which she declined. Offered echo, and order was placed. Pt will consider. Supervision of normal first 03/26/2012 03/06/2018 Unsure of LMP (last menstrua l period) as reason for ultrasound scan 03/26/2012 09/11/2012 Other acne 11/06/2017 Overview: Advised to stop current facial gel with retinoic acid in it. documented as of this encounter (statuses as of 03/22/2023) [facility] History of Past illness Narrative* Problem Noted Date Diagnosed Date Resolved Date History of section 02/19/2017 11/06/2017 Overview: 02/19/17: c/s for BREECH. Risks/benefits/alternatives discussed with patient regarding trial of labor and potential for uterine rupture. Risks include but are not limited to maternal hemorrhage, risk of injury to adjacent organs including potential hysterectomy. risks discussed as well, including potential for permanent neurologic injury or . Overall uterine rupture risk is less than 1% after one section. Is a trial of labor contraindicated for this patient? No If no, calculate rate of success using pre-labor factors: http://www[facility]/mfmu/vagbirth.html Predicted chance of vaginal after : 70.4% Patient's plan for delivery mode: Trial of labor Cherie March MD Family or maternal historic risk of congenital anomaly, antepartum 04/22/2012 3 Overview: Needs cardiology follow up and probable echocardiogram done. Offered genetic counseling which she declined. Offered echo, and order was placed. Pt will consider. Supervision of normal first 03/26/2012 03/06/2018 Unsure of LMP (last menstrua l period) as reason for ultrasound scan 03/26/2012 09/11/2012 Other acne 11/06/2017 Overview: Advised to stop current facial gel with retinoic acid in it. documented as of this encounter (statuses as of 05/01/2023) [facility] Diagnosis Well adult exam- Primary Routine general medical examination at a health care facility Need for influenza vaccination Need for prophylactic vaccination and inoculation against influenza Nasal polyps Unspecified nasal polyp Other [facility] Family history of hypertrophic cardiomyopathy- Primary Family history of other cardiovascular diseases Monoallelic mutation of MYBPC3 gene [facility] Diagnosis Monoallelic mutation of MYBPC3 gene- Primary Family history of hypertrophic cardiomyopathy Family history of other cardiovascular diseases [facility] Diagnosis Encounter for gynecological examination (general) (routine) without abnormal findings- Primary Encounter for IUD removal Encounter for removal of intrauterine contraceptive device Breast pain, left Mastodynia [facility] Diagnosis Other hyperlipidemia- Primary [facility] Diagnosis Breast pain, left Mastodynia [facility] Diagnosis Encounter for IUD removal- Primary Encounter for removal of intrauterine contraceptive device [facility] Diagnosis Encounter for gynecological examination (general) (routine) without abnormal findings- Primary Screening for cervical cancer Screening for malignant neoplasm of the cervix Special screening examination for human papillomavirus (HPV) Herpes Herpes simplex without mention of complication Encounter for IUD removal Encounter for removal of intrauterine contraceptive device [facility] Diagnosis Well adult exam- Primary Routine general medical examination at a health care facility [facility] Diagnosis Family history of hypertrophic cardiomyopathy- Primary Family history of other cardiovascular diseases [facility] Diagnosis with uncertain dates, antepartum (HCC)- Primary state, incidental Encounter for supervision of high risk multigravida of advanced maternal age, antepartum (HCC) Screen for STD (sexually transmitted disease) Screening examination for venereal disease Missed menses Absence of menstruation Family history of hypertrophic cardiomyopathy Family history of other cardiovascular diseases History of Personal history of other genital system and obstetric disorders Herpes simplex virus (HSV) infection Herpes Herpes simplex without mention of complication [facility] Diagnosis Encounter for screening for malformation using ultrasound (HCC)- Primary 12 weeks gestation of ([facility]) state, incidental [facility] Diagnosis Encounter for supervision of high risk multigravida of advanced maternal age, antepartum (HCC)- Primary 12 weeks gestation of ([facility]) state, incidental History of Personal history of other genital system and obstetric disorders History of section Other postprocedural status Hypertrophic cardiomyopathy (HCC) Other hypertrophic cardiomyopathy Family history of hypertrophic cardiomyopathy Family history of other cardiovascular diseases documented in this encounter [facility]* Diagnosis Multigravida of advanced maternal age in second trimester (HCC)- Primary documented in this encounter [facility] note* Diagnosis Encounter for supervision of high risk multigravida of advanced maternal age, antepartum (HCC)- Primary History of Personal history of other genital system and obstetric disorders History of section Other postprocedural status Hypertrophic cardiomyopathy (HCC) Other hypertrophic cardiomyopathy Family history of hypertrophic cardiomyopathy Family history of other cardiovascular diseases 16 weeks gestation of ([facility]) state, incidental * Assessment & Plan Note - Cherie Cain MD - 02/12/2025 8:21 AM EDT Associated Problem(s): History of * Assessment & Plan Note - Cherie Cain MD - 02/12/2025 8:21 AM EDT Associated Problem(s): History of section Planning * Assessment & Plan Note - Cherie Cain MD - 02/12/2025 8:21 AM EDT Associated Problem(s): Hypertrophic cardiomyopathy (HCC) Cardiac ob appt scheduled 03/08 * Assessment & Plan Note - Cherie Cain MD - 02/12/2025 8:21 AM EDT Associated Problem(s): Family history of hypertrophic cardiomyopathy * Assessment & Plan Note - Cherie Cain MD - 02/12/2025 8:21 AM EDT Associated Problem(s): Encounter for supervision of high risk multigravida of advanced maternal age, antepartum (HCC) Tried ASA- allergic reaction- stopped taking documented in this encounter [facility] for referral (narrative)* Outpatient Procedure (Routine) - Authorized Specialty Diagnoses / Procedures Referred By Contac t Referred To [facility] Diagnoses Family history of hypertrophic cardiomyopathy Monoallelic mutation of MYBPC3 gene Procedures ECG COMPLETE ECG ROUTINE ECG W/LEAST 12 LDS W/I&R Nicole Barcenas MD [address] [place] [address] [address] [place] [address] Referral ID Status Reason Start Date Expiration Date Visits Requested Visits Authorized [id number] Authorized Auto-Generat ed Referral 08/02/2022 08/02/2023 1 1 * Outpatient Procedure (Routine) - Pending Review Specialty Diagnoses / Procedures Referred By Priya monahan Referred To Contact [facility] [place] Diagnoses Family history of hypertrophic cardiomyopathy Monoallelic mutation of MYBPC3 gene Procedures ECHO ECHO TTHRC R-T 2D W/WOM-MODE COMPL SPEC&COLR D Nicole Barcenas MD [address] [place] [address] [address] Referral ID Status Reason Start Date Expiration Date Visits Requested Visits Authorized [id number] Pending Review Auto-Generat ed Referral 08/02/2022 08/02/2023 1 [facility] Diagnostic Procedure Only (Routine) - Pending Review Specialty Diagnoses / Procedures Referred By Pirya monahan Referred To Contact [facility] Diagnoses Breast pain, left Procedures US BREAST LTD LEFT US BREAST UNI REAL TIME WITH IMAGE LIMITED Cherie Cain MD [address] [place] [address] [facility] [address] [place] [address] Referral ID Status Reason Start Date Expiration Date Visits Requested Visits Authorized [id number] Pending Review Auto-Generat ed Referral 11/21/2022 12/21/2023 1 1 * Diagnostic Procedure Only (Routine) - Pending Review Specialty Diagnoses / Procedures Referred By Contac t Referred To Contact [facility] Diagnoses Breast pain, left Procedures [facility] BILATERAL DIAGNOSTIC MAMMOGRAPHY COMPUTER-AIDED DETCJ BI Cherie Cain MD [address] [place] [address] [facility] [address] [place] [address] Referral ID Status Reason Start Date Expiration Date Visits Requested Visits Authorized [id number] Pending Review Auto-Generat ed Referral 11/21/2022 12/21/2023 1 1 * Outpatient Procedure (Routine) - Pending Review Specialty Diagnoses / Procedures Referred By Priya t Referred To Contact [facility] Diagnoses Encounter for IUD removal Procedures REMOVE INTRAUTERINE DEVICE REMOVE INTRAUTERINE DEVICE Cherie Cain MD [address] [place] [address] [facility] [address] [place] [address] Referral ID Status Reason Start Date Expiration Date Visits Requested Visits Authorized [id number] Pending Review Auto-Generat ed Referral 11/21/2022 11/21/[address] [facility] for referral (narrative)* Outpatient Procedure (Routine) - New Request Specialty Diagnoses / Procedures Referred By Contac t Referred To Contact [facility] Diagnoses Encounter for IUD removal Procedures REMOVE INTRAUTERINE DEVICE REMOVE INTRAUTERINE DEVICE Tila De Souza MD [address] [place] [address] [facility] [address] [place] [address] Referral ID Status Reason Start Date Expiration Date Visits Requested Visits Authorized [id number] New Request Auto-Generat ed Referral 01/07/2024 01/02/[address] [facility] for referral (narrative)* Outpatient Procedure (Routine) - New Request Specialty Diagnoses / Procedures Referred By Priya monahan Referred To Contact [facility] Diagnoses Encounter for IUD removal Procedures REMOVE INTRAUTERINE DEVICE REMOVE INTRAUTERINE DEVICE Cherie Cain MD [facility] [place] [address] [facility] [address] [place] [id number] Referral ID Status Reason Start Date Expiration Date Visits Requested Visits Authorized [id number] New Request Auto-Generat ed Referral 01/28/2024 01/27/[address] [facility] for referral (narrative)* Outpatient Procedure (Routine) - Authorized Specialty Diagnoses / Procedures Referred By Priya monahan Referred To Contact [facility] Diagnoses Family history of hypertrophic cardiomyopathy Procedures ECHO ECHO TTHRC R-T 2D W/WOM-MODE COMPL SPEC&COLR D Nicole Barcenas MD [address] [place] [address] [address] Referral ID Status Reason Start Date Expiration Date Visits Requested Visits Authorized [id number] Authorized Auto-Generat ed Referral 07/13/2024 07/13/2025 1 1 * Outpatient Procedure (Routine) - Authorized Specialty Diagnoses / Procedures Referred By Priya monahan Referred To Contact [facility] Diagnoses Family history of hypertrophic cardiomyopathy Procedures ECG COMPLETE ECG ROUTINE ECG W/LEAST 12 LDS W/I&R Nicole Barcenas MD [address] [place] [address] [address] [place] [address] Referral ID Status Reason Start Date Expiration Date Visits Requested Visits Authorized [id number] Authorized Auto-Generat ed Referral 07/13/2024 07/13/2025 1 1 [facility] for visit Narrative* Diagnostic Procedure Only (Routine) - Closed Specialty Diagnoses / Procedures Referred By Contcarlos t Referred To Contact [facility] Diagnoses Breast pain, left Procedures [facility] BILATERAL DIAGNOSTIC MAMMOGRAPHY COMPUTER-AIDED DETCJ BI Cherie Cain MD [address] [place] [address] [facility] [address] [place] [address] Referral ID Status Reason Start Date Expiration Date V isits Requested Visits Authorized [id number] Closed Auto-Generate d Referral 11/21/2022 12/21/2023 [address] [facility] Summary Purpose Family History No Family History Records FoundNo Family History Records FoundNo Family History Records FoundNo Family History Records FoundNo Family History Records FoundNo Family History Records FoundNo Family History Records Found Advance Directives No Advanced Directives Records FoundDocuments on File Type Date Recorded Patient Safety Deposit Supervisor Expl anation Advance Directive(s) Additional Source Comments INFORMATION SOURCE (unrecogn ized section and content) DATE CREATED AUTHOR 08/08/2019 [facility] DATE CREATED AUTHOR AUTHOR'S ORGANIZ ATION 09/14/2021 [facility] DATE CREATED AUTHOR AUTHOR'S ORGANIZ ATION 03/06/2023 [facility] DATE CREATED AUTHOR AUTHOR'S ORGANIZ ATION 05/01/2023 [facility] DATE CREATED AUTHOR AUTHOR'S ORGANIZ ATION 01/20/2025 [facility] DATE CREATED AUTHOR AUTHOR'S ORGANIZ ATION 02/28/2025 [facility] DATE CREATED AUTHOR AUTHOR'S ORGANIZ ATION 04/13/2025 [facility] Source Comments (unrecognize d section and content) In the event this informatio n is protected by the Federal Confidentiality of Alcohol and Drug Abuse Patient Records regulations: The Federal rules restrict any use of the information to criminally investigate or prosecute any alcohol or drug abuse patient.[facility] CenterIn the event this information is protected by the Federal Confidentiality of Alcohol and Drug Abuse Patient Records regulations: The Federal rules restrict any use of the information to criminally investigate or prosecute any alcohol or drug abuse patient.[facility] CenterIn the event this information is protected by the Federal Confidentiality of Alcohol and Drug Abuse Patient Records regulations: The Federal rules restrict any use of the information to criminally investigate or prosecute any alcohol or drug abuse patient.[facility] CenterIn the event this information is protected by the Federal Confidentiality of Alcohol and Drug Abuse Patient Records regulations: The Federal rules restrict any use of the information to criminally investigate or prosecute any alcohol or drug abuse patient.[facility] CenterIn the event this information is protected by the Federal Confidentiality of Alcohol and Drug Abuse Patient Records regulations: The Federal rules restrict any use of the information to criminally investigate or prosecute any alcohol or drug abuse patient.[facility] CenterIn the event this information is protected by the Federal Confidentiality of Alcohol and Drug Abuse Patient Records regulations: The Federal rules restrict any use of the information to criminally investigate or prosecute any alcohol or drug abuse patient.[facility] CenterIn the event this information is protected by the Federal Confidentiality of Alcohol and Drug Abuse Patient Records regulations: The Federal rules restrict any use of the information to criminally investigate or prosecute any alcohol or drug abuse patient.[facility] CenterIn the event this information is protected by the Federal Confidentiality of Alcohol and Drug Abuse Patient Records regulations: The Federal rules restrict any use of the information to criminally investigate or prosecute any alcohol or drug abuse patient.[facility] CenterIn the event this information is protected by the Federal Confidentiality of Alcohol and Drug Abuse Patient Records regulations: The Federal rules restrict any use of the information to criminally investigate or prosecute any alcohol or drug abuse patient.[facility] CenterIn the event this information is protected by the Federal Confidentiality of Alcohol and Drug Abuse Patient Records regulations: The Federal rules restrict any use of the information to criminally investigate or prosecute any alcohol or drug abuse patient.[facility] CenterIn the event this information is protected by the Federal Confidentiality of Alcohol and Drug Abuse Patient Records regulations: The Federal rules restrict any use of the information to criminally investigate or prosecute any alcohol or drug abuse patient.[facility] CenterIn the event this information is protected by the Federal Confidentiality of Alcohol and Drug Abuse Patient Records regulations: The Federal rules restrict any use of the information to criminally investigate or prosecute any alcohol or drug abuse patient.[facility] CenterIn the event this information is protected by the Federal Confidentiality of Alcohol and Drug Abuse Patient Records regulations: The Federal rules restrict any use of the information to criminally investigate or prosecute any alcohol or drug abuse patient.[facility] CenterIn the event this information is protected by the Federal Confidentiality of Alcohol and Drug Abuse Patient Records regulations: The Federal rules restrict any use of the information to criminally investigate or prosecute any alcohol or drug abuse patient.[facility] CenterIn the event this information is protected by the Federal Confidentiality of Alcohol and Drug Abuse Patient Records regulations: The Federal rules restrict any use of the information to criminally investigate or prosecute any alcohol or drug abuse patient.[facility] CenterIn the event this information is protected by the Federal Confidentiality of Alcohol and Drug Abuse Patient Records regulations: The Federal rules restrict any use of the information to criminally investigate or prosecute any alcohol or drug abuse patient.[facility] CenterIn the event this information is protected by the Federal Confidentiality of Alcohol and Drug Abuse Patient Records regulations: The Federal rules restrict any use of the information to criminally investigate or prosecute any alcohol or drug abuse patient.[facility] CenterIn the event this information is protected by the Federal Confidentiality of Alcohol and Drug Abuse Patient Records regulations: The Federal rules restrict any use of the information to criminally investigate or prosecute any alcohol or drug abuse patient.[facility] CenterIn the event this information is protected by the Federal Confidentiality of Alcohol and Drug Abuse Patient Records regulations: The Federal rules restrict any use of the information to criminally investigate or prosecute any alcohol or drug abuse patient.[facility] CenterIn the event this information is protected by the Federal Confidentiality of Alcohol and Drug Abuse Patient Records regulations: The Federal rules restrict any use of the information to criminally investigate or prosecute any alcohol or drug abuse patient.[facility] CenterIn the event this information is protected by the Federal Confidentiality of Alcohol and Drug Abuse Patient Records regulations: The Federal rules restrict any use of the information to criminally investigate or prosecute any alcohol or drug abuse patient.[facility] CenterIn the event this information is protected by the Federal Confidentiality of Alcohol and Drug Abuse Patient Records regulations: The Federal rules restrict any use of the information to criminally investigate or prosecute any alcohol or drug abuse patient.[facility] CenterIn the event this information is protected by the Federal Confidentiality of Alcohol and Drug Abuse Patient Records regulations: The Federal rules restrict any use of the information to criminally investigate or prosecute any alcohol or drug abuse patient.[facility] CenterIn the event this information is protected by the Federal Confidentiality of Alcohol and Drug Abuse Patient Records regulations: The Federal rules restrict any use of the information to criminally investigate or prosecute any alcohol or drug abuse patient.[facility] CenterIn the event this information is protected by the Federal Confidentiality of Alcohol and Drug Abuse Patient Records regulations: The Federal rules restrict any use of the information to criminally investigate or prosecute any alcohol or drug abuse patient.[facility] Reason for Visit (unrecogniz ed section and content) Reason Comments Refill Request Reason Onset Date Comments Yearly Exam Immunizations 03/16/2022 Flu vaccination Reason Onset Date Comments Refill Request 08/27/2022 Reason Comments Event Zio patch Reason Comments Yearly Exam Reason Comments Results Reason Comments Patient Question Reason Comments Well Woman Reason Comments Initial OB Visit Reason Comments US Specialty Diagnoses / Procedures Referred By Contac t Referred To Contact [facility] Diagnoses with uncertain dates, antepartum (HCC) Procedures OBSTETRIC ULTRASOUND WHI US PREG UTERUS AFTER 1ST TRIMEST GESTATION Jihan Enriquez APRN.CN [address] [place] [address] Phone: tel: fax: [facility] [address] [place] [address] Referral ID Status Reason Start Date Expiration Date V isits Requested Visits Authorized [id number] Closed Auto-Generate d Referral 12/14/2024 12/14/2025 1 1 Reason Onset Date Comments Care 01/14/2025 Reason Onset Date Comments Care 02/12/2025 Reason Comments Appointment COB Reason Comments Appointment Care Teams (unrecognized sec tion and content) Apartment Maintenance Technician Relationship Specialty Start Date End Date Uvaldo Milton, DO [address] [place], [place] [id number] PCP - General Family Practice 03/06/18 No, Referral Referring 03/04/18 Ivy, Cain M Primary Staff Physician Cardiology 09/02/18 Navarro Murray MD [address] [place] [address] Primary Staff Physician Cardiology 12/30/20 Nicole Barcenas MD [address] [place] [address] Primary Staff Physician Cardiology 05/09/21 Apartment Maintenance Technician Relationship Specialty Start Date End Date Uvaldo Milton DO [address] [place] [address] PCP - General Family Medicine 03/06/18 No, Referral Referring 03/04/18 Cain Haynes Primary Staff Physician Cardiology 09/02/18 Navarro Murray MD [address] [place] [address] Primary Staff Physician Cardiology 12/30/20 Nicole Barcenas MD [address] [place] [address] Primary Staff Physician Cardiology 05/09/21 Apartment Maintenance Technician Relationship Specialty Start Date End Date Uvaldo Milton DO [address] [place] [address] PCP - General Family Medicine 03/06/18 No, Referral Referring 03/04/18 Cain Haynes Jaleel [address] [place] [address] Primary Staff Physician Cardiology 09/02/18 Navarro Murray MD [address] [facility] [place] [address] Primary Staff Physician Cardiology 12/30/20 Nicole Barcenas MD [address] [facility] [place] [address] Primary Staff Physician Cardiology 05/09/21 Apartment Maintenance Technician Relationship Specialty Start Date End Date Uvaldo Milton, DO [address] [place] [address] PCP - General Family Medicine 03/06/18 No, Referral Referring 03/04/18 Cain Haynes [address] [place] [address] Primary Staff Physician Cardiology 09/02/18 Navarro Murray MD [address] [place] [address] Primary Staff Physician Cardiology 12/30/20 Nicole Barcenas MD [address] [place] [address] Primary Staff Physician Cardiology 05/09/21 Apartment Maintenance Technician Relationship Specialty Start Date End Date Uvaldo Milton, DO [address] [place] [address] PCP - General Family Medicine 03/06/18 No, Referral Referring 03/04/18 Cain Haynes [address] [place] [address] Primary Staff Physician Cardiology 09/02/18 Navarro Murray MD [address] [place] [address] Primary Staff Physician Cardiology 12/30/20 Nicole Barcenas MD [address] [place] [address] Primary Staff Physician Cardiology 05/09/21 Apartment Maintenance Technician Relationship Specialty Start Date End Date Uvaldo Milton DO [address] [place], [place] [id number] PCP - General Family Medicine 03/06/18 No, Referral Referring 03/04/18 Cain Haynes [address] [place] [address] Primary Staff Physician Cardiology 09/02/18 Navarro Murray MD [address] [place] [address] Primary Staff Physician Cardiology 12/30/20 Nicole Barcenas MD [address] [facility] [address] [place], [place] [id number] Primary Staff Physician Cardiology 05/09/21 Apartment Maintenance Technician Relationship Specialty Start Date End Date Uvaldo Milton DO [address] [place] [address] PCP - General Family Medicine 03/06/18 No, Referral Referring 03/04/18 Cain Haynes [address] [place] [address] Primary Staff Physician Cardiology 09/02/18 Navarro Murray MD [address] [facility] [place] [address] Primary Staff Physician Cardiology 12/30/20 Nicole Barcenas MD [address] [place] [address] Primary Staff Physician Cardiology 05/09/21 Apartment Maintenance Technician Relationship Specialty Start Date End Date Uvaldo Milton DO [address] [place], [place] [address] PCP - General Family Medicine 03/06/18 No, Referral Referring 03/04/18 Cain Haynes [address] [place] [address] Primary Staff Physician Cardiology 09/02/18 Navarro Murray MD [address] [facility] [place] [address] Primary Staff Physician Cardiology 12/30/20 Nicole Barcenas MD [address] [place] [address] Primary Staff Physician Cardiology 05/09/21 Apartment Maintenance Technician Relationship Specialty Start Date End Date Uvaldo Milton DO [address] [place] [address] PCP - General Family Medicine 03/06/18 No, Referral Referring 03/04/18 Cain Haynes MD [address] [place] [address] Primary Staff Physician Cardiology 09/02/18 Navarro Murray MD [address] [facility] [place] [address] Primary Staff Physician Cardiology 12/30/20 Nicole Barcenas MD [address] [place] [address] Primary Staff Physician Cardiology 05/09/21 Apartment Maintenance Technician Relationship Specialty Start Date End Date Uvaldo Milton DO [address] [place], [place] [address] PCP - General Family Medicine 03/06/18 No, Referral Referring 03/04/18 Cain Haynes MD [address] [place], [place] [address] Primary Staff Physician Cardiology 09/02/18 Navarro Murray MD [address] [place] [address] Primary Staff Physician Cardiology 12/30/20 Nicole Barcenas MD [address] [place] [address] Primary Staff Physician Cardiology 05/09/21 Apartment Maintenance Technician Relationship Specialty Start Date End Date Uvaldo Milton DO [address] [place] [address] PCP - General Family Medicine 03/06/18 No, Referral Referring 03/04/18 Cain Haynes MD [address] [place], [place] 9987[address] Primary Staff Physician Cardiology 09/02/18 Navarro Murray MD [address] [place] [address] Primary Staff Physician Cardiology 12/30/20 Nicole Barcenas MD [address] [place] [address] Primary Staff Physician Cardiology 05/09/21 Apartment Maintenance Technician Relationship Specialty Start Date End Date Uvaldo Milton DO [address] [place] [address] PCP - General Family Medicine 03/06/18 No, Referral Referring 03/04/18 Cain Haynes MD [address] [place] [address] Primary Staff Physician Cardiology 09/02/18 Navarro Murray MD [address] [place], [place] [address] Primary Staff Physician Cardiology 12/30/20 Nicole Barcenas MD [address] [place], [place] [address] Primary Staff Physician Cardiology 05/09/21 Apartment Maintenance Technician Relationship Specialty Start Date End Date Uvaldo Milton DO [address] [place], [place] [address] PCP - General Family Medicine 03/06/18 No, Referral Referring 03/04/18 Cain Haynes MD [address] [place] [address] Primary Staff Physician Cardiology 09/02/18 Navarro Murray MD [address] [place] [address] Primary Staff Physician Cardiology 12/30/20 Nicole Barcenas MD [address] [place], [place] [address] Primary Staff Physician Cardiology 05/09/21 Edna Jimenez, PROM BURN OFF OPERATOR.[employer]ER [employer]URNITURE [address] [place] [address] Logistics Solution Manager Family Medicine 05/24/24 Maddy Esquivel, PROM BURN OFF OPERATOR.CLEANER FURNITURE [address] [place] [address] Logistics Solution Manager Family [facility] 05/24/24 Apartment Maintenance Technician Relationship Specialty Start Date End Date Uvaldo Milton DO [address] [place] [address] PCP - General Family Medicine 03/06/18 No, Referral Referring 03/04/18 Cain Haynes MD [address] [place] [address] Primary Staff Physician Cardiology 09/02/18 Navarro Murray MD [address] [place], [place] [address] Primary Staff Physician Cardiology 12/30/20 Nicole Barcenas MD [address] [place], [place] [address] Primary Staff Physician Cardiology 05/09/21 Maddy Esquivel APRN.CLEANER FURNITURE [address] [place] [address] Logistics Solution Manager [facility] 05/24/24 Apartment Maintenance Technician Relationship Specialty Start Date End Date Uvaldo Milton DO [address] [place] [address] PCP - General Family Medicine 03/06/18 No, Referral Referring 03/04/18 Cain Haynes MD [address] [place] [address] Primary Staff Physician Cardiology 09/02/18 Navarro Murray MD [address] [place] [address] Primary Staff Physician Cardiology 12/30/20 Nicole Barcenas MD [address] [place], [place] [address] Primary Staff Physician Cardiology 05/09/21 Maddy Esquivel, PROM BURN OFF OPERATOR.CLEANER [employer]URNITURE [address] [place], [place] [address] Logistics Solution Manager Family Medicine 05/24/24 Frances Cortez APRN.[employer]ER [employer]URNITURE [address] [place], [place] [address] [facility] 11/30/24 Apartment Maintenance Technician Relationship Specialty Start Date End Date Uvaldo Milton DO [address] [place] [address] PCP - General Family Medicine 03/06/18 No, Referral Referring 03/04/18 Cain Haynes MD [address] [place] [address] Primary Staff Physician Cardiology 09/02/18 Navarro Murray MD [address] [place] [address] Primary Staff Physician Cardiology 12/30/20 Nicole Barcenas MD [address] [place] [address] Primary Staff Physician Cardiology 05/09/21 Maddy Esquivel, PROM BURN OFF OPERATOR.CLE[employer]ER [employer]URNITURE [address] [place], [place] [id number] [facility] 05/24/24 Frances Cortez, PROM BURN OFF OPERATOR.CLEANER FURNITURE [address] [place], [place] [address] [facility] 11/30/24 Apartment Maintenance Technician Relationship Specialty Start Date End Date Uvaldo Milton DO [address] [place], [place] [address] PCP - General Family Medicine 03/06/18 No, Referral Referring 03/04/18 Cain Haynes MD [address] [place], [place] [address]681 Primary Staff Physician Cardiology 09/02/18 Navarro Murray MD [address] [place] [address] Primary Staff Physician Cardiology 12/30/20 Nicole Barcenas MD [address] [place], [place] [address] Primary Staff Physician Cardiology 05/09/21 Maddy Esquivel, PROM BURN OFF OPERATOR.CLEANER FURNITURE [address] [place], [place] [address] [facility] 05/24/24 Frances Cortez, PROM BURN OFF OPERATOR.CLEANER FURNITURE [address] [place], [place] [id number] [facility] 11/30/24 Apartment Maintenance Technician Relationship Specialty Start Date End Date Uvaldo Milton DO [address] [place], [place] 8340[address] PCP - General Family Medicine 03/06/18 No, Referral Referring 03/04/18 Cain Haynes MD [address] [place] [address] Primary Staff Physician Cardiology 09/02/18 Navarro Murray MD [address] [facility] [place], [place] [address] Primary Staff Physician Cardiology 12/30/20 Nicole Barcenas MD [address] [place], [place] [address] Primary Staff Physician Cardiology 05/09/21 Maddy Esquivel, PROM BURN OFF OPERATOR.CLEANER FURNITURE [address] [place] [address] Logistics Solution Manager Family Medicine 05/24/24 Frances Cortez, PROM BURN OFF OPERATOR.CLEANER FURNITURE [address] [place] [address] Logistics Solution Manager Family Medicine 11/30/24 Kelsi Diaz, air export agentSpecialist Employee Labor Relations Maternal Medicine 01/15/25 Apartment Maintenance Technician Relationship Specialty Start Date End Date Uvaldo Milton DO [address] [place] [address] PCP - General Family Medicine 03/06/18 No, Referral Referring 03/04/18 Cain Haynes MD [address] [place] [address] Primary Staff Physician Cardiology 09/02/18 Navarro Murray MD [address] [place] [address] Primary Staff Physician Cardiology 12/30/20 Nicole Barcenas MD [address] [place] [address] Primary Staff Physician Cardiology 05/09/21 Maddy Esquivel, PERLA.CLEANER FURNITURE [address] [place] [address] [id number] Logistics Solution Manager Family Medicine 05/24/24 Frances Cortez, PERLA.CLE[employer]ER FURNITURE [address] [place] [phone] [facility] Family Medicine 11/30/24 Kelsi Diaz, air export agentSpecialist Employee Labor Relations Maternal Medicine 01/15/25 Apartment Maintenance Technician Relationship Specialty Start Date End Date Uvaldo Milton DO [facility] [place], [place] [id number] PCP - General Family Medicine 03/06/18 No, Referral Referring 03/04/18 Cain Haynes MD [address] [place], [place] [id number] Primary Staff Physician Cardiology 09/02/18 Navarro Murray MD [address] [place] [address] Primary Staff Physician Cardiology 12/30/20 Nicole Barcenas MD [address] [place] [address] Primary Staff Physician Cardiology 05/09/21 Maddy Esqiuvel, PERLA.CLEANER FURNITURE [facility] [place], [place] [phone] Logistics Solution Manager Family Medicine 05/24/24 Frances Cortez, PROM BURN OFF OPERATOR.CLEANER FURNITURE [address] [place], [place] 387[address] Logistics Solution Manager Family [facility] 11/30/24 Kelsi Diaz, air export agentSpecialist Employee Labor Relations Maternal Medicine 01/15/25 Apartment Maintenance Technician Relationship Specialty Start Date End Date Uvaldo Milton DO [address] [place], [place] [address]65[address] PCP - General Family Medicine 03/06/18 No, Referral Referring 03/04/18 Cain Haynes MD [address] [place], [place] [address]1331 Primary Staff Physician Cardiology 09/02/18 Navarro Murray MD [address] [place], [place] 529[address] Primary Staff Physician Cardiology 12/30/20 Nicole Barcenas MD [address] [place], [place] 07[address] Primary Staff Physician Cardiology 05/09/21 Maddy Esquivel, PROM BURN OFF OPERATOR.CLEANER FURNITURE [facility] [place], [place] [address] Logistics Solution Manager Family [facility] 05/24/24 Frances Cortez, PROM BURN OFF OPERATOR.CLEANER FURNITURE [facility] [place], [place] [id number] Logistics Solution Manager Family [facility] 11/30/24 Kelsi Diaz, air export agentSpecialist Employee Labor Relations Maternal Medicine 01/15/25 Apartment Maintenance Technician Relationship Specialty Start Date End Date Uvaldo Milton DO [address] [place], [place] [id number] PCP - General Family Medicine 03/06/18 No, Referral Referring 03/04/18 Cain Haynes MD [address] [place] [address] Primary Staff Physician Cardiology 09/02/18 Navarro Murray MD [address] [employer] [place], [place] [address] Primary Staff Physician Cardiology 12/30/20 Nicole Barcenas MD [address] [place] [address] Primary Staff Physician Cardiology 05/09/21 Maddy Esquivel APRN.CLEANER FURNITURE [address] [place] [phone] Logistics Solution Manager Family Medicine 05/24/24 Frances Cortez APRN.CLEANER FURNITURE [address] [place] [phone] Logistics Solution Manager Family [facility] 11/30/24 Kelsi Diaz, air export agentSpecialist Employee Labor Relations Maternal Medicine 01/15/25 Apartment Maintenance Technician Relationship Specialty Start Date End Date Uvaldo Miltno DO [facility] [place], [place] [address] PCP - General Family Medicine 03/06/18 No, Referral Referring 03/04/18 Cain Haynes MD [address] [place] [address] Primary Staff Physician Cardiology 09/02/18 Navarro Murray MD [address] [place], [place] 3169[address] Primary Staff Physician Cardiology 12/30/20 Nicole Barcenas MD [address] [place] [address] Primary Staff Physician Cardiology 05/09/21 Maddy Esquivel APRN.CLEANER FURNITURE [address] [place] [phone] Logistics [facility] 05/24/24 Frances Cortez APRN.CLEANER FURNITURE [address] [place] [address] [facility] 11/30/24 Kelsi Diaz, air export agentSpecialist Employee Labor Relations Maternal Medicine 01/15/25 FOR RECORDS PERTAINING TO PATIENTS WHO ARE OR HAVE BEEN ENROLLED IN A CHEMICAL DEPENDENCY/SUBSTANCEABUSE PROGRAM, SOME INFORMATION MAY BE OMITTED. This clinical summary was aggregated from multiple sources. Caution should be exercised in using it in the provision of clinical care. This summary normalizes information from multiple sources, and as a consequence, information in this document may materially change the coding, format and clinical context of patient data. In addition, data may be omitted in some cases. CLINICAL DECISIONS SHOULD BE BASED ON THE PRIMARY CLINICAL RECORDS. [facility]. provides no warranty or guarantee of the accuracy or completeness of information in this document.
--- NOTE | 2025-05-26 17:59 | OB.TRI.HP_ITS ---
HPI - General HPI Narrative MAHSA GOYAL, is a 35 F who presents to triage with loss of fluid. Reports having intercourse and today felt gushes of fluid. Denies any cramps or contractions. PFSH PFSH Home Medications ?Medication ?Instructions ?Recorded ?Last Taken ?Type montelukast 10 mg tablet 10 mg PO DAILY 09/25/1709/15 09:00 History vits,calcium no.78-iron 1 tab PO DAILY 09/25/17 09:00 History fumarate-folic acid 29 mg-1 mg tablet (Prenatabs FA) valacyclovir 500 mg tablet 500 mg PO DAILY 09/25/17 08:00 History (Valtrex) ferrous sulfate 325 mg (65 mg 325 mg PO BIDCM #60 tabs 09/27/17 Unknown Rx iron) tablet montelukast 10 mg tablet 10 mg PO 2000 ##30 09/27/17 Unknown Rx naproxen 250 mg tablet 250 - 500 mg (1 - 2 x 250 mg ) PO 09/27/17 Unknown Rx Q8H PRN PRN MILD PAIN (1-3/10) #30 tabs Allergy/AdvReac Type Severity Reaction Status Date / Time morphine AdvReac Itching Verified 09/25/17 12:44 Social History Smoking Status: Never smoker History Elective abortions Hx Para 1 Spontaneous abortions Hx # Term Pregnancies Ectopic pregnancies Hx # Pregnancies Multiple births # of living children ROS Eyes Eyes: Denies blurry vision Cardiovascular Cardiovascular: Reports none; Denies chest pain at rest, chest pain with activity or dizziness Respiratory/Chest Respiratory/Chest: Denies cough or dyspnea Gastrointestinal Gastrointestinal: Reports none and other; Denies diarrhea or vomiting Genitourinary Genitourinary: Denies dysuria Musculoskeletal Musculoskeletal: Reports none Integumentary Integumentary: Reports none; Denies rash Neurologic Neurologic: Denies dizziness, headache(s) or other visual disturbances Psychiatric Psychiatric: Reports none Physical Exam Const alert and no apparent distress General Appearance: cooperative Orientation / Consciousness: awake Exam Limitations: no limitations HEENT normocephalic Eyes General Eye: normal appearance of both eyes Neck full ROM Chest inspection of chest normal Resp normal respiratory effort and normal air movement Effort and Inspection: symmetric chest movement Auscultation: clear to auscultation bilaterally Cardio regular rate GI soft to palpation, non-tender and non-distended Inspection: and other Back/Spine normal ROM Extremity full ROM, normal capillary refill and no calf tenderness Skin no rashes or lesions noted Neuro oriented x3 and CN's II-XII intact bilaterally Psych mental status grossly normal NST FHR Rate Baby A Baseline: 140 Variability:: Moderate Accelerations:: 15 x 15 Decelerations:: None NST Reactive:: Yes Uterine Activity:: None Assessment & Plan (1) Leakage of amniotic fluid: (2) 31 weeks gestation of : (3) Rh negative status during : (4) History of : (5) History of low transverse section: (6) History of herpes genitalis: (7) Hypertrophic cardiomyopathy: COMMENT: Carrier of gene PLAN: Plan ROM plus- POSITIVE Dr. Gustafson involved with orders/ transport process Start Magnesium Sulfate IV 6 gm bolus then run at 2 gm IV/ hour Celestone 12 mg IM x 1 now and repeat in 24 hours Transport to [facility] Report between Dr. Gustafson and [facility] communications equipment installer Spoke with patient and discussed plan of care
[2025-05-26 18:29] LABS: ROM Internal Control Test YES-OK TO RESULT pt. (Internal QC)
[2025-05-26 18:32] LABS: ROM Patient Test POSITIVE (Negative); Record Kit Lot#, ROM+ K3607
[2025-05-26] MEDS: Magnesium Sulfate 4gm/100mL 4 GM/100 ML IV.SOLN. IV (19:40)
[2025-05-26] MEDS: Magnesium Sulfate 4gm/100mL 2 GM/50 ML IV.SOLN. IV (20:03)
[2025-05-26] MEDS: Betamethasone/Betamethasone 30 MG/5 ML Vial 12 MG IM (20:04)
[2025-05-26] MEDS: Magnesium Sulfate 20 GM/500 ML BAG IV (20:18)
[2025-05-26 20:23] LABS: Hematocrit 37.2 % (37-47); Hemoglobin 13.1 g/dL (12.0-15.0); Mean Corp Hgb Conc 35.2 g/dL (32-36); Mean Corpuscular Volume 86.7 fL (81-99); Mean Platelet Vol. 10.9 fl (6.2-12.0); Platelet Count 231 K/mm3 (150-450); RBC Distribution Width CV 13.6 % (11.6-14.6); RBC Distribution Width SD 42.3 fl (35.1-43.9); Red Blood Count 4.29 M/mm3 (4.2-5.4); White Blood Count 10.3 K/mm3 (4.4-11.0)
--- NOTE | 2025-05-26 20:51 | PCM.PN.BLA ---
Progress Note I personally came in to evaluate the patient due to ROM plus being positive. Discussed with the patient that there are causes of false positive testing. Patient reports that when she stood up to use the bathroom recently she did have fluid trickling down her leg. She denies any contractions or pain at the current time. Bedside ultrasound was performed: Vertex/JOSE 17 cm Speculum exam: Cervix appears closed, large amount of pooling clear fluid noted. Discussed transport to [facility] due to premature rupture of membranes at 31.4 weeks gestation. Discussed the likely plan of care. Discussed ultimate goal would be 34 weeks gestation. All questions were answered to the best of my ability. Will await transport.
== END 2025-05-26 22:15 | disposition short-term general hospital (02) ==
LOC: WPOUT 17:11 → WP 17:30
PROVIDERS: PCP Student in an Organized Health Care Education/Training Program; Referring Provider Advanced Practice Midwife; Visit Provider Advanced Practice Midwife
DX: O42.913 Preterm premature rupture of membranes, unspecified as to length of time between rupture and onset of labor, third trimester (principal); Z3A.31 31 weeks gestation of pregnancy; O26.893 Other specified pregnancy related conditions, third trimester; Z86.19 Personal history of other infectious and parasitic diseases
CPT/HCPCS: 96375; 96365; 96366; 96372; 59025; 59050; 84112; 85027; 86850; 86900; 86901; 99221; G0378; J0702